=== PATIENT | female | born 2005 | race Caucasian/White ===

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

== ENCOUNTER 2025-04-02 14:20 | Emergency (ER) | payer OTHER, SELFPAY ==
--- OUTSIDE RECORDS SUMMARY | 2008-05-31 | XMS_ITS | Encounter Summary ---
Author Organization [facility] Healthcare Address [address] [place] [address] Care Team Providers Care Privacy Analyst Name Role Phone Unavailable Primary Care Provider Unavailabl e Encounter Details Date Type Department Care Team (Late st Contact Info) Description 05/31/2008 Hospital Encounter [facility] [place] [address] Social History Tobacco Use Types Packs/Day Years Used Date Smoking Tobacco: Never Passive Smoke Exposure: Never Smokeless Tobacco: Never AUDIT-C Answer Date Recorded Q1: How often do you have a drink containing alcohol? Never 12/10/2022 Q2: How many drinks containi ng alcohol do you have on a typical day when you are drinking? Patient does not drink Q3: How often do you have si x or more drinks on one occasion? Never 12/10/2022 Personal Safety Answer Date Recorded Have you ever been in or are you currently in a harmful physical or emotional relationship or is someone making you feel afraid or unsafe? Denies 02/09/2023 Comments No Sex and Gender Information Value Date Recorded Sex Assigned at Not on file Legal Sex Female 7:23 PM DIMMER BOARD OPERATOR Gender Identity Not on file Sexual Orientation Not on file COVID-19 Exposure Response Date Recorded In the last month, have you been in contact with someone who was confirmed or suspected to have Coronavirus / COVID-19? No / Unsure 07/11/2019 3:01 PM CDT documented as of this encounter Functional Status * Question Answer Date of Assessment Author MAP (mmHg) 83 02/09/2023 3:15 PM CDT Nena Phipps RN * BP Location Answer Date of Assessment Author Left arm 04/28/2023 4:12 PM DIMMER BOARD OPERATOR Jose, Dary, FINANCIAL COMPLIANCE MANAGER * Minh QD Scale Question Answer Date of Assessment Author Mobility 1 06/10/2022 9:00 AM Franny Collier RN Sensory Perception 0 06/10/2022 9:00 AM Franny Barrett RN Friction and Shear 1 06/10/2022 9:00 AM Franny Barrett RN Nutrition 0 06/10/2022 9:00 AM Franny Collier RN Tissue Perfusion and Oxygenation 0 06/10/2022 9:00 AM Franny Barrett RN Number of Medical Devices 0 06/10/2022 9:00 AM Franny Barrett RN Repositionability/Skin Protection 0 06/10/2022 9:00 AM Franny Barrett RN Braden QD Score 2 06/10/2022 9:00 AM Franny Carcamo RN * Question Answer Date of Assessment Author OT Functional Mobility Mom reports was S BA up to two weeks ago with wc for community mobility; does not do stairs at baseline. This date Britt was mod to max A for ambulation at bedside. 05/29/2022 1:32 PM Jennifer Dinero OT OT Self Care Completes bathroomin g with min task, mod balance 05/29/2022 1:32 PM Jennifer Dinero OT OT Cognition WFL, per pmh pt has a diagnosis of ASD and OCD 05/29/2022 1:32 PM Jennifer Dinero OT OT Communication WFL, very soft spoken 05/29/2022 1:32 PM Jennifer Dinero OT * B.M.A.T. - Bedside Mobility Assessment Tool for Nurses Question Answer Date of Assessment Author Is patient able to participate in the BMAT? Yes 06/10/2022 9:00 AM Franny Barrett RN Reason patient is unable to participate in BMAT Medically contraindicated 06/08/2022 8:26 AM Noreen Ceballos RN BMAT Level Level 3 - Yellow 06/10/2022 9:00 AM Franny Barrett RN Level 3 Equipment Use assistive device such as cane/walker 06/10/2022 9:00 AM Franny Barrett RN * Vladimir Urenaptrobert Fall Assessment Scale Question Answer Date of Assessment Author Age 1 06/10/2022 9:00 AM Franny Collier RN Gender 1 06/10/2022 9:00 AM Franny Collier RN Diagnosis 4 06/10/2022 9:00 AM Franny Collier RN Cognitive Impairment 1 06/10/2022 9:00 AM Franny Diez RN Environmental Factors 3 06/10/2022 9:00 AM Franny Barrett RN Response to Surgery/Sedation/Anesthesia 1 06/10/2022 9:00 AM Thuan Barrett RN Medication Usage 2 06/10/2022 9:00 AM Franny Yeh RN Humptrobert Urenapty Total Score (Score >= 12 places fall precaution order) 13 06/10/2022 9:00 AM Franny Barrett RN Auto Low/High - if selected proceed to interventions 4 06/06/2022 8:00 AM Maggy Paul RN * Question Answer Date of Assessment Author BP Method Automatic 06/10/2022 12:05 PM DIMMER BOARD OPERATOR Ti Roman * High Fall Risk Interventions (Humpty Dumpty Score 12 & Above) Question Answer Date of Assessment Author High Fall Risk Interventions Assist with ambulation;Educate patient/caregiver on fall prevention 06/10/2022 9:00 AM Franny Barrett RN * Question Answer Date of Assessment Author 1. Has the patient self-repo rted, presented with clinical signs of, or have a documented history of any of the following within the past 30 days? No 05/27/2022 9:37 PM Carolina Mata RN * Question Answer Date of Assessment Author Is the patient being treated today because it is known or suspected that they prepared, started, or tried to end their life? No 05/27/2022 9:37 PM Julianne Mata RN * Question Answer Date of Assessment Author 1. In the past month, have you wished you were or that you could go to sleep and not wake up? No 12/10/2022 7:40 PM Nadja Moreau, [place] 2. In the past month, have you actually had any thoughts of killing yourself? No 12/10/2022 7:40 PM Nadja Moreau, [place] 6. Have you ever done anything, started to do anything, or prepared to do anything to end your life? No 12/10/2022 7:40 PM July Moreau RN * Suicide Risk Level Answer Date of Assessment Author No risk level 12/10/2022 7:40 PM Fawad Moreau RN * Self-Injurious Risk Level Answer Date of Assessment Author No risk level 05/27/2022 9:37 PM DIMMER BOARD OPERATOR Rosie Salamanca, [place]DONADO * Alcohol Withdrawal BP Hierarchy Answer Date of Assessment Author 65 02/10/2023 11:18 AM CDT Charla Hernandez CMA * Pressure Injury Prevention Question Answer Date of Assessment Author Pressure Ulcer Prevention Interventions Keep skin clean and dry (Sensory Perception/Moistur e) 06/10/2022 9:00 AM DIMMER BOARD OPERATOR Franny Garcia, RN * AUDIT-C Score Answer Date of Assessment Author 0 12/10/2022 7:40 PM Fawad Moreau RN * Alcohol Use Question Answer Date of Assessment Author Q1: How often do you have a drink containing alcohol? Never 12/10/2022 7:40 PM Nadja Moreau RN Q2: How many drinks containing alcohol do you have on a typical day when you are drinking? Patient does not drink 12/10/2022 7:40 PM Nadja Moreau RN Q3: How often do you have six or more drinks on one occasion? Never 12/10/2022 7:40 PM Nadja Moreau RN * Integumentary Question Answer Date of Assessment Author Integumentary (WDL) X 05/15/2022 11:06 PM Maggy Veronica, [place] * Integumentary Question Answer Date of Assessment Author Skin Color Pale;[place] 06/07/2022 9:30 AM DIMMER BOARD OPERATOR Noreen Ibrahim RN Skin Condition/Temp Warm 06/07/2022 9:30 AM Noreen Cardenas, [place] Skin Integrity Other (Comment) 06/08/2022 8:56 AM Noreen Ceballos RN Skin Turgor Non-tenting 06/06/2022 8:30 AM DIMMER BOARD OPERATOR Maggy Molina RN Integumentary Additional Assessments Yes-Minh QD 06/06/2022 8:30 AM Maggy Paul RN Integumentary (WDL) WDL 02/09/2023 3:30 PM Nena Bermudez RN Skin Location generalized 06/08/2022 8:27 PM DIMMER BOARD OPERATOR Maggy Isidro RN * Minh Scale Question Answer Date of Assessment Author Minh Scale Used Minh QD 05/27/2022 9:37 PM DIMMER BOARD OPERATOR Carolina Salamanca RN * Question Answer Date of Assessment Author LLE Edema No pitting 06/08/2022 8:27 PM Maggy Paul RN Edema Left lower extremity 06/08/2022 8:27 PM C Maggy Meredith RN * Question Answer Date of Assessment Author Percent Meal Eaten (%) 100 06/10/2022 12:05 P M DIMMER BOARD OPERATOR Ti Jay Percent Snack Eaten (%) 0 06/09/2022 1:30 P M DIMMER BOARD OPERATOR Danita Gonzalez * BP Location Answer Date of Assessment Author Left arm 04/28/2023 4:12 PM DIMMER BOARD OPERATOR Dary Garcia LPN * Question Answer Date of Assessment Author Skin Care Skin cleanser 06/01/2022 9:00 PM DIMMER BOARD OPERATOR Azra Stanton RN Hygiene Gown Changed 06/06/2022 8:00 AM DIMMER BOARD OPERATOR Maggy Molina RN Oral Care Teeth brushed 06/08/2022 8:26 AM DIMMER BOARD OPERATOR Noreen Booth RN Hygiene Level of Assistance Moderate assist 06/10/2022 9:00 AM DIMMER BOARD OPERATOR Franny Garcia RN Toileting: Level of assistance Modified independent;Stand by 06/10/2022 9:00 AM DIMMER BOARD OPERATOR Franny Garcia RN Reason not bathed/showered Patient/family refused bath/shower 06/04/2022 9:13 PM DIMMER BOARD OPERATOR Maggy Crystal, [place] Perineal Care Dara Care 06/08/2022 8:26 AM DIMMER BOARD OPERATOR Noreen Booth RN Linens Complete linen change 06/06/2022 8:00 AM DIMMER BOARD OPERATOR Maggy Molina RN Bath Bathed/showered with chlorhexidine (CHG) 06/06/2022 8:00 AM DIMMER BOARD OPERATOR Maggy Molina, RN * PT Evaluation Needed Answer Date of Assessment Author 1 05/27/2022 9:37 PM DIMMER BOARD OPERATOR Rosie Salamanca, [place]O * Therapy Consults Question Answer Date of Assessment Author OT Evaluation Needed 1 05/16/2022 6:00 AM Lizeth Charles RN HEALTH INFORMATICS INSTRUCTOR Evaluation Needed 2 05/16/2022 6:00 AM Lizeth Orozco RN * Question Answer Date of Assessment Author Feeding Level of Assistance Able to feed self 06/10/2022 9:00 AM DIMMER BOARD OPERATOR Franny Garcia RN Appetite Good 06/09/2022 7:50 AM DIMMER BOARD OPERATOR Uriel Galdamez RN * Question Answer Date of Assessment Author BP Method Automatic 06/10/2022 12:05 PM DIMMER BOARD OPERATOR Ti Roman * Question Answer Date of Assessment Author Bed In Lowest Position Yes 06/10/2022 9:00 AM DIMMER BOARD OPERATOR Franny Garcia RN Bed Wheels Locked Yes 06/10/2022 9:00 AM DIMMER BOARD OPERATOR Franny Garcia RN documented as of this encounter Mental Status * Question Answer Entry Date Author Level of Consciousness Alert;Awake 3:30 PM Nena Damian RN Orientation Appropriate for yamil ent's baseline 02/09/2023 3:30 PM Nena Damian RN * Question Answer Entry Date Author Other Neuro Symptoms Other (Comment) 06/01/2022 8:00 A M DIMMER BOARD OPERATOR Rena Siddiqi RN * Question Answer Entry Date Author Neuro (WDL) WDL 02/09/2023 3:30 PM Nena Yang RN documented in this encounter Plan of Treatment Not on file documented as of this encounter Goals Goal Patient Goal Type Associated Problems Recent Progress Patient-Stated? Author BH-Adjustment and Coping Behavioral Health No Mohini Pandya, PhD Note: Increase adaptive coping skills CCM Chronic Pain Care Plan Chronic Care Management Worsening( 9:24 AM CDT) No Aylin Lobato, RN Note: Problem: Chronic Pain Goals: 1. Minimize further functional decline 2. Maximize quality of life 3. Control pain Strategies: - Activity/exercise program recommendation - Conservative stepwise pain medicine strategy with multi-disciplinary approach - Recommend healthy lifestyle strategies and compensatory methods as needed documented as of this encounter Procedures Procedure Name Priority Date/Time Associated Diagnosis Comments US TRANSFER OF OUTSIDE FILMS Routine 05/31/2008 12:00 AM DIMMER BOARD OPERATOR documented in this encounter Results * US Outside Reference (05/31/2008 12:00 AM DIMMER BOARD OPERATOR) Impressions RAD_PACS_[facility] - 04/08/2022 10:34 AM DIMMER BOARD OPERATOR These images are for Reference purposes only and have not been reviewed by [facility]iology. There will be no report generated by a [facility] Radiologist. Narrative RAD_PACS_[facility] - 04/08/2022 10:34 AM DIMMER BOARD OPERATOR EXAMINATION: Images For Reference Purposes Only us Selvin Paulson MD IMG US PROCEDURES Final Resu lt RAD_PACS_[facility] documented in this encounter Visit Diagnoses Not on filedocumented in this encounter Additional Health Concerns Infection Onset Date Last Indicated Resolved Time COVID: Suspected 12/03/2020 12/03/2020 12/03/2020 9:36 AM CDT COVID: Suspected 12/10/2022 12/10/2022 12/10/2022 8:09 PM CDT COVID19 12/10/2022 12/10/2022 12/20/2022 3:05 AM CDT COVID: Recovered Comment:Added based on recent COVID infection. 12/20/2022 12/22/2022 03/20/2023 3:[address] documented as of this encounter
--- OUTSIDE RECORDS SUMMARY | 2010-06-13 | XMS_ITS | Encounter Summary ---
Author Organization [facility] Healthcare Address [address] [place] [address] Care Team Providers Care Revival Clerk Name Role Phone Unavailable Primary Care Provider Unavailabl e Encounter Details Date Type Department Care Team (Late st Contact Info) Description 06/13/2010 Hospital Encounter [facility] [place] [address] Social History Tobacco Use Types Packs/Day Years [...] on file Legal Sex Female 7:23 PM TIGHT ROPE WALKER Gender Identity Not on file Sexual Orientation [...] Assessment Author Left arm 04/28/2023 4:12 PM TIGHT ROPE WALKER Jose, Dary, MVA REACTOR OPERATOR HEAD * Minh QD Scale Question Answer Date [...] Author BP Method Automatic 06/10/2022 12:05 PM TIGHT ROPE WALKER Ti Roman * High Fall Risk Interventions [...] Author No risk level 05/27/2022 9:37 PM TIGHT ROPE WALKER Rosie Salamanca, [place] * Alcohol Withdrawal BP Hierarchy Answer Date of Assessment Author 65 02/10/2023 11:18 AM CDT Charla Hernandez CMA * Pressure Injury Prevention Question Answer Date of Assessment Author Pressure Ulcer Prevention Interventions Keep skin clean and dry (Sensory Perception/Moistur e) 06/10/2022 9:00 AM TIGHT ROPE WALKER Franny Garcia, RN * AUDIT-C Score Answer [...] Answer Date of Assessment Author Skin Color Pale;[place] 06/07/2022 9:30 AM TIGHT ROPE WALKER Noreen Ibrahim RN Skin Condition/Temp Warm 06/07/2022 9:30 AM Noreen Cardenas, [place] Skin Integrity Other (Comment) 06/08/2022 8:56 AM Noreen Ceballos RN Skin Turgor Non-tenting 06/06/2022 8:30 AM TIGHT ROPE WALKER Maggy Molina RN Integumentary Additional Assessments Yes-Minh QD 06/06/2022 8:30 AM Maggy Paul RN Integumentary (WDL) WDL 02/09/2023 3:30 PM Nena Bermudez RN Skin Location generalized 06/08/2022 8:27 PM TIGHT ROPE WALKER Maggy Isidro RN * Minh Scale Question Answer Date of Assessment Author Minh Scale Used Minh QD 05/27/2022 9:37 PM TIGHT ROPE WALKER Carolina Salamanca RN * Question Answer Date of Assessment Author LLE Edema No pitting 06/08/2022 8:27 PM Maggy Paul RN Edema Left lower extremity 06/08/2022 8:27 PM C Maggy Meredith RN * Question Answer Date of Assessment Author Percent Meal Eaten (%) 100 06/10/2022 12:05 P M TIGHT ROPE WALKER Ti Jay Percent Snack Eaten (%) 0 06/09/2022 1:30 P M TIGHT ROPE WALKER Danita Gonzalez * BP Location Answer Date of Assessment Author Left arm 04/28/2023 4:12 PM TIGHT ROPE WALKER Dary Garcia LPN * Question Answer Date of Assessment Author Skin Care Skin cleanser 06/01/2022 9:00 PM TIGHT ROPE WALKER Azra Stanton RN Hygiene Gown Changed 06/06/2022 8:00 AM TIGHT ROPE WALKER Maggy Molina RN Oral Care Teeth brushed 06/08/2022 8:26 AM TIGHT ROPE WALKER Noreen Booth RN Hygiene Level of Assistance Moderate assist 06/10/2022 9:00 AM TIGHT ROPE WALKER Franny Garcia RN Toileting: Level of assistance Modified independent;Stand by 06/10/2022 9:00 AM TIGHT ROPE WALKER Franny Garcia RN Reason not bathed/showered Patient/family refused bath/shower 06/04/2022 9:13 PM TIGHT ROPE WALKER Maggy Crystal, [place] Perineal Care Dara Care 06/08/2022 8:26 AM TIGHT ROPE WALKER Noreen Booth RN Linens Complete linen change 06/06/2022 8:00 AM TIGHT ROPE WALKER Maggy Molina RN Bath Bathed/showered with chlorhexidine (CHG) 06/06/2022 8:00 AM TIGHT ROPE WALKER Maggy Molina, RN * PT Evaluation Needed Answer Date of Assessment Author 1 05/27/2022 9:37 PM TIGHT ROPE WALKER Rosie Salamanca, [place] * Therapy Consults Question Answer Date of Assessment Author OT Evaluation Needed 1 05/16/2022 6:00 AM Lizeth Charles RN LABELLING MACHINE OPERATOR Evaluation Needed 2 05/16/2022 6:00 AM Lizeth Orozco RN * Question Answer Date of Assessment Author Feeding Level of Assistance Able to feed self 06/10/2022 9:00 AM TIGHT ROPE WALKER Franny Garcia RN Appetite Good 06/09/2022 7:50 AM TIGHT ROPE WALKER Uriel Galdamez RN * Question Answer Date of Assessment Author BP Method Automatic 06/10/2022 12:05 PM TIGHT ROPE WALKER Ti Roman * Question Answer Date of Assessment Author Bed In Lowest Position Yes 06/10/2022 9:00 AM TIGHT ROPE WALKER Franny Garcia RN Bed Wheels Locked Yes 06/10/2022 9:00 AM TIGHT ROPE WALKER Franny Garcia RN documented as of this encounter Mental Status * Question Answer Entry Date Author Level of Consciousness Alert;Awake 3:30 PM Nena Damian RN Orientation Appropriate for yamil ent's baseline 02/09/2023 3:30 PM Nena Damian RN * Question Answer Entry Date Author Other Neuro Symptoms Other (Comment) 06/01/2022 8:00 A M TIGHT ROPE WALKER Rena Siddiqi RN * Question Answer Entry [...] Comments US TRANSFER OF OUTSIDE FILMS Routine 06/13/2010 12:00 AM TIGHT ROPE WALKER documented in this encounter Results * US Outside Reference (06/13/2010 12:00 AM TIGHT ROPE WALKER) Impressions RAD_PACS[facility] - 04/08/2022 8:45 AM TIGHT ROPE WALKER These images are for Reference purposes only and have not been reviewed by [facility] Radiology. There will be no report generated by a [facility] Radiologist. Narrative RAD_PACS_[facility] - 04/08/2022 8:45 AM TIGHT ROPE WALKER EXAMINATION: Images For Reference Purposes Only us [...]
--- OUTSIDE RECORDS SUMMARY | 2010-06-13 | XMS_ITS | Encounter Summary ---
Author Organization [facility] Healthcare Address [address] [place] [address] Care Team Providers Care Relay Tester Helper Name Role Phone Unavailable Primary Care Provider Unavailabl e Encounter Details Date Type Department Care Team (Late st Contact Info) Description 06/13/2010 Hospital Encounter [facility] [place] [address] Social History Tobacco Use Types Packs/Day Years [...] on file Legal Sex Female 7:23 PM RADIOLOGY RECEPTIONIST Gender Identity Not on file Sexual Orientation [...] Assessment Author Left arm 04/28/2023 4:12 PM RADIOLOGY RECEPTIONIST Jose, Dary, ENERGY CONSERVATION DIRECTOR * Minh QD Scale Question Answer Date [...] Author BP Method Automatic 06/10/2022 12:05 PM RADIOLOGY RECEPTIONIST Ti Roman * High Fall Risk Interventions [...] Author No risk level 05/27/2022 9:37 PM RADIOLOGY RECEPTIONIST Rosie Salamanca, [place] * Alcohol Withdrawal BP Hierarchy Answer Date of Assessment Author 65 02/10/2023 11:18 AM CDT Charla Hernandez CMA * Pressure Injury Prevention Question Answer Date of Assessment Author Pressure Ulcer Prevention Interventions Keep skin clean and dry (Sensory Perception/Moistur e) 06/10/2022 9:00 AM RADIOLOGY RECEPTIONIST Franny Garcia, RN * AUDIT-C Score Answer [...] Answer Date of Assessment Author Skin Color Pale;[place] 06/07/2022 9:30 AM RADIOLOGY RECEPTIONIST Noreen Ibrahim RN Skin Condition/Temp Warm 06/07/2022 9:30 AM Noreen Cardenas, [place] Skin Integrity Other (Comment) 06/08/2022 8:56 AM Noreen Ceballos RN Skin Turgor Non-tenting 06/06/2022 8:30 AM RADIOLOGY RECEPTIONIST Maggy Molina RN Integumentary Additional Assessments Yes-Minh QD 06/06/2022 8:30 AM Maggy Paul RN Integumentary (WDL) WDL 02/09/2023 3:30 PM Nena Bermudez RN Skin Location generalized 06/08/2022 8:27 PM RADIOLOGY RECEPTIONIST Maggy Isidro RN * Minh Scale Question Answer Date of Assessment Author Minh Scale Used Minh QD 05/27/2022 9:37 PM RADIOLOGY RECEPTIONIST Carolina Salamanca RN * Question Answer Date of Assessment Author LLE Edema No pitting 06/08/2022 8:27 PM Maggy Paul RN Edema Left lower extremity 06/08/2022 8:27 PM C Maggy Meredith RN * Question Answer Date of Assessment Author Percent Meal Eaten (%) 100 06/10/2022 12:05 P M RADIOLOGY RECEPTIONIST Ti Jay Percent Snack Eaten (%) 0 06/09/2022 1:30 P M RADIOLOGY RECEPTIONIST Danita Gonzalez * BP Location Answer Date of Assessment Author Left arm 04/28/2023 4:12 PM RADIOLOGY RECEPTIONIST Dary Garcia LPN * Question Answer Date of Assessment Author Skin Care Skin cleanser 06/01/2022 9:00 PM RADIOLOGY RECEPTIONIST Azra Stanton RN Hygiene Gown Changed 06/06/2022 8:00 AM RADIOLOGY RECEPTIONIST Maggy Molina RN Oral Care Teeth brushed 06/08/2022 8:26 AM RADIOLOGY RECEPTIONIST Noreen Booth RN Hygiene Level of Assistance Moderate assist 06/10/2022 9:00 AM RADIOLOGY RECEPTIONIST Franny Gracia RN Toileting: Level of assistance Modified independent;Stand by 06/10/2022 9:00 AM RADIOLOGY RECEPTIONIST Franny Garcia RN Reason not bathed/showered Patient/family refused bath/shower 06/04/2022 9:13 PM RADIOLOGY RECEPTIONIST Maggy Crystal, [place] Perineal Care Dara Care 06/08/2022 8:26 AM RADIOLOGY RECEPTIONIST Noreen Booth RN Linens Complete linen change 06/06/2022 8:00 AM RADIOLOGY RECEPTIONIST Maggy Molina RN Bath Bathed/showered with chlorhexidine (CHG) 06/06/2022 8:00 AM RADIOLOGY RECEPTIONIST Maggy Molina, RN * PT Evaluation Needed Answer Date of Assessment Author 1 05/27/2022 9:37 PM RADIOLOGY RECEPTIONIST Rosie Salamanca, [place] * Therapy Consults Question Answer Date of Assessment Author OT Evaluation Needed 1 05/16/2022 6:00 AM Lizeth Charles RN YARN HANDLER Evaluation Needed 2 05/16/2022 6:00 AM Lizeth Orozco RN * Question Answer Date of Assessment Author Feeding Level of Assistance Able to feed self 06/10/2022 9:00 AM RADIOLOGY RECEPTIONIST Franny Garcia RN Appetite Good 06/09/2022 7:50 AM RADIOLOGY RECEPTIONIST Uriel Galdamez RN * Question Answer Date of Assessment Author BP Method Automatic 06/10/2022 12:05 PM RADIOLOGY RECEPTIONIST Ti Roman * Question Answer Date of Assessment Author Bed In Lowest Position Yes 06/10/2022 9:00 AM RADIOLOGY RECEPTIONIST Franny Garcia RN Bed Wheels Locked Yes 06/10/2022 9:00 AM RADIOLOGY RECEPTIONIST Franny Garcia RN documented as of this encounter Mental Status * Question Answer Entry Date Author Level of Consciousness Alert;Awake 3:30 PM Nena Damian RN Orientation Appropriate for yamil ent's baseline 02/09/2023 3:30 PM Nena Damian RN * Question Answer Entry Date Author Other Neuro Symptoms Other (Comment) 06/01/2022 8:00 A M RADIOLOGY RECEPTIONIST Rena Siddiqi RN * Question Answer Entry [...] Procedure Name Priority Date/Time Associated Diagnosis Comments XR TRANSFER OF OUTSIDE FILMS Routine 06/13/2010 12:00 AM RADIOLOGY RECEPTIONIST documented in this encounter Results * XR Outside Reference (06/13/2010 12:00 AM RADIOLOGY RECEPTIONIST) Impressions RAD_PACS[facility] - 04/08/2022 8:42 AM RADIOLOGY RECEPTIONIST These images are for Reference purposes only and have not been reviewed by [facility] Radiology. There will be no report generated by a [facility] Radiologist. Narrative RAD_PACS_[facility] - 04/08/2022 8:42 AM RADIOLOGY RECEPTIONIST EXAMINATION: Images For Reference Purposes Only us Selvin Paulson MD IMG XR PROCEDURES Final Resu lt [facility]_PACS[facility] documented in [...]
--- OUTSIDE RECORDS SUMMARY | 2014-07-23 23:00 | XMS_ITS | Encounter Summary ---
Author Organization [facility] Healthcare Address [address] [place] [address] Care Team Providers Care Dining Service Inspector Name Role Phone Unavailable Primary Care Provider Unavailabl e Encounter Details Date Type Department Care Team (Late st Contact Info) Description 07/24/2014 Hospital Encounter [facility] [place] [address] Social History Tobacco Use Types Packs/Day Years [...] on file Legal Sex Female 7:23 PM CAREER RESOURCE TECHNICIAN Gender Identity Not on file Sexual Orientation [...] Assessment Author Left arm 04/28/2023 4:12 PM CAREER RESOURCE TECHNICIAN Jose, Dary, SWITCH CREW SUPERVISOR * Minh QD Scale Question Answer Date [...] Author BP Method Automatic 06/10/2022 12:05 PM CAREER RESOURCE TECHNICIAN Ti Roman * High Fall Risk Interventions [...] Author No risk level 05/27/2022 9:37 PM CAREER RESOURCE TECHNICIAN Rosie Salamanca, [place]ADO * Alcohol Withdrawal BP Hierarchy Answer Date of Assessment Author 65 02/10/2023 11:18 AM CDT Charla Hernandez CMA * Pressure Injury Prevention Question Answer Date of Assessment Author Pressure Ulcer Prevention Interventions Keep skin clean and dry (Sensory Perception/Moistur e) 06/10/2022 9:00 AM CAREER RESOURCE TECHNICIAN Franny Garcia, RN * AUDIT-C Score Answer [...] Answer Date of Assessment Author Skin Color Pale;[employer] 06/07/2022 9:30 AM CAREER RESOURCE TECHNICIAN Noreen Ibrahim RN Skin Condition/Temp Warm 06/07/2022 9:30 AM Noreen Cardenas, MAL[place]O Skin Integrity Other (Comment) 06/08/2022 8:56 AM Noreen Ceballos RN Skin Turgor Non-tenting 06/06/2022 8:30 AM CAREER RESOURCE TECHNICIAN Maggy Molina RN Integumentary Additional Assessments Yes-Minh QD 06/06/2022 8:30 AM Maggy Paul RN Integumentary (WDL) WDL 02/09/2023 3:30 PM Nena Bermudez RN Skin Location generalized 06/08/2022 8:27 PM CAREER RESOURCE TECHNICIAN Maggy Isidro RN * Minh Scale Question Answer Date of Assessment Author Minh Scale Used Minh QD 05/27/2022 9:37 PM CAREER RESOURCE TECHNICIAN Carolina Salamanca RN * Question Answer Date of Assessment Author LLE Edema No pitting 06/08/2022 8:27 PM Maggy Paul RN Edema Left lower extremity 06/08/2022 8:27 PM C Maggy Meredith RN * Question Answer Date of Assessment Author Percent Meal Eaten (%) 100 06/10/2022 12:05 P M CAREER RESOURCE TECHNICIAN Ti Jay Percent Snack Eaten (%) 0 06/09/2022 1:30 P M CAREER RESOURCE TECHNICIAN Danita Gonzalez * BP Location Answer Date of Assessment Author Left arm 04/28/2023 4:12 PM CAREER RESOURCE TECHNICIAN Dary Garcia LPN * Question Answer Date of Assessment Author Skin Care Skin cleanser 06/01/2022 9:00 PM CAREER RESOURCE TECHNICIAN Azra Stanton RN Hygiene Gown Changed 06/06/2022 8:00 AM CAREER RESOURCE TECHNICIAN Maggy Molina RN Oral Care Teeth brushed 06/08/2022 8:26 AM CAREER RESOURCE TECHNICIAN Noreen Booth RN Hygiene Level of Assistance Moderate assist 06/10/2022 9:00 AM CAREER RESOURCE TECHNICIAN Franny Garcia RN Toileting: Level of assistance Modified independent;Stand by 06/10/2022 9:00 AM CAREER RESOURCE TECHNICIAN Franny Garcia RN Reason not bathed/showered Patient/family refused bath/shower 06/04/2022 9:13 PM CAREER RESOURCE TECHNICIAN Maggy Crystal, [place] Perineal Care Dara Care 06/08/2022 8:26 AM CAREER RESOURCE TECHNICIAN Noreen Booth RN Linens Complete linen change 06/06/2022 8:00 AM CAREER RESOURCE TECHNICIAN Maggy Molina RN Bath Bathed/showered with chlorhexidine (CHG) 06/06/2022 8:00 AM CAREER RESOURCE TECHNICIAN Maggy Molina, RN * PT Evaluation Needed Answer Date of Assessment Author 1 05/27/2022 9:37 PM CAREER RESOURCE TECHNICIAN Rosie Salamanca, MALDON[place] * Therapy Consults Question Answer Date of Assessment Author OT Evaluation Needed 1 05/16/2022 6:00 AM Lizeth Charles RN SALES RECRUITMENT SPECIALIST Evaluation Needed 2 05/16/2022 6:00 AM Lizeth Orozco RN * Question Answer Date of Assessment Author Feeding Level of Assistance Able to feed self 06/10/2022 9:00 AM CAREER RESOURCE TECHNICIAN Franny Garcia RN Appetite Good 06/09/2022 7:50 AM CAREER RESOURCE TECHNICIAN Uriel Galdamez RN * Question Answer Date of Assessment Author BP Method Automatic 06/10/2022 12:05 PM CAREER RESOURCE TECHNICIAN Ti Roman * Question Answer Date of Assessment Author Bed In Lowest Position Yes 06/10/2022 9:00 AM CAREER RESOURCE TECHNICIAN Franny Garcia RN Bed Wheels Locked Yes 06/10/2022 9:00 AM CAREER RESOURCE TECHNICIAN Franny Garcia RN documented as of this encounter Mental Status * Question Answer Entry Date Author Level of Consciousness Alert;Awake 3:30 PM Nena Damian RN Orientation Appropriate for yamil ent's baseline 02/09/2023 3:30 PM Nena Damian RN * Question Answer Entry Date Author Other Neuro Symptoms Other (Comment) 06/01/2022 8:00 A M CAREER RESOURCE TECHNICIAN Rena Siddiqi RN * Question Answer Entry [...] Comments US TRANSFER OF OUTSIDE FILMS Routine 07/24/2014 12:00 AM CDT documented in this encounter Results * US Outside Reference (07/24/2014 12:00 AM CDT) Impressions [facility] - 04/08/2022 8:45 AM CAREER RESOURCE TECHNICIAN These images are for Reference purposes only and have not been reviewed by [facility] Radiology. There will be no report generated by a [facility] Radiologist. Narrative [facility] - 04/08/2022 8:45 AM CAREER RESOURCE TECHNICIAN EXAMINATION: Images For Reference Purposes Only us [...]
--- OUTSIDE RECORDS SUMMARY | 2018-04-28 | XMS_ITS | Encounter Summary ---
Author Organization [facility] Healthcare Address [address] [place] [address] Care Team Providers Care Lineman A Class Name Role Phone Alan Medel MD Primary Care Provider Encounter Details Date Type Department Care Team (Late st Contact Info) Description 04/28/2018 [place] [address] Social History Tobacco Use Types Packs/Day Years [...] on file Legal Sex Female 7:23 PM PHOTORADIO OPERATOR Gender Identity Not on file Sexual [...] MAP (mmHg) 83 02/09/2023 3:15 PM CDT Juliana sanchez, Nena Spear RN * BP Location Answer Date of Assessment Author Left arm 04/28/2023 4:12 PM PHOTORADIO OPERATOR Dary Garcia LPN * Minh QD Scale Question Answer Date [...] BA up to two weeks ago with for community mobility; does not do stairs [...] 9:00 AM Franny Barrett RN * Vladimir Murray Fall Assessment Scale Question Answer Date of Assessment Author Age 1 06/10/2022 9:00 AM Franny Collier RN Gender 1 06/10/2022 9:00 AM Franny Collier RN Diagnosis 4 06/10/2022 9:00 AM Franny Collier RN Cognitive Impairment 1 06/10/2022 9:[address] Franny Garcia RN Environmental Factors 3 06/10/2022 9:00 AM Franny Barrett RN Response to Surgery/Sedation/Anesthesia 1 06/10/2022 9:00 AM Thuan Barrett RN Medication Usage 2 06/10/2022 9:00 AM Franny Yeh RN Humpty Dumpty Total Score (Score >= 12 places fall precaution order) 13 06/10/2022 9:00 AM Franny Barrett RN Auto Low/High - if selected proceed to interventions 4 06/06/2022 8:00 AM Maggy Paul RN * Question Answer Date of Assessment Author BP Method Automatic 06/10/2022 12:05 PM Ti Arce * High Fall Risk Interventions (Humpty Dumpty [...] end their life? No 05/27/2022 9:37 PM Carolina Mata RN * Question Answer Date of Assessment Author 1. In the past month, have you wished you were or that you could go to sleep and not wake up? No 12/10/2022 7:40 PM Nadja Moreau RN 2. In the past month, have you [...] Author No risk level 05/27/2022 9:37 PM PHOTORADIO OPERATOR Rosie Salamanca, RN * Alcohol Withdrawal BP Hierarchy Answer Date of Assessment Author 65 02/10/2023 11:18 AM CDT Charla Hernandez CMA * Pressure Injury Prevention Question Answer Date of Assessment Author Pressure Ulcer Prevention Interventions Keep skin clean and dry (Sensory Perception/Moistur e) 06/10/2022 9:00 AM PHOTORADIO OPERATOR Franny Garcia, RN * AUDIT-C Score [...] Answer Date of Assessment Author Skin Color Pale;[place] 06/07/2022 9:30 AM Noreen Petit, [place] Skin Condition/Temp Warm 06/07/2022 9:30 AM Noreen Cardenas, [place] Skin Integrity Other (Comment) 06/08/2022 8:56 AM Noreen Ceballos, [place] Skin Turgor Non-tenting 06/06/2022 8:30 AM Maggy Paul RN Integumentary Additional Assessments Yes-Minh QD 06/06/2022 8:30 AM Maggy Paul RN Integumentary (WDL) WDL 02/09/2023 3:30 PM Nena Bermudez RN Skin Location generalized 06/08/2022 8:27 PM PHOTORADIO OPERATOR Maggy Isidro RN * Minh Scale Question Answer Date of Assessment Author Minh Scale Used Minh QD 05/27/2022 9:37 PM PHOTORADIO OPERATOR Carolina Salamanca, [place] * Question Answer Date of Assessment Author LLE Edema No pitting 06/08/2022 8:27 PM Maggy Paul RN Edema Left lower extremity 06/08/2022 8:[address] Maggy Molina RN * Question Answer Date of Assessment Author Percent Meal Eaten (%) 100 06/10/2022 12:05 P M PHOTORADIO OPERATOR Ti Jay Percent Snack Eaten (%) 0 06/09/2022 1:30 P M PHOTORADIO OPERATOR Danita Gonzalez * BP Location Answer Date of Assessment Author Left arm 04/28/2023 4:12 PM PHOTORADIO OPERATOR Dayr Garcia LPN * Question Answer Date of Assessment Author Skin Care Skin cleanser 06/01/2022 9:00 PM PHOTORADIO OPERATOR Azra Stanton, [place] Hygiene Gown Changed 06/06/2022 8:00 AM PHOTORADIO OPERATOR Maggy Molina RN Oral Care Teeth brushed 06/08/2022 8:26 AM PHOTORADIO OPERATOR Noreen Booth RN Hygiene Level of Assistance Moderate assist 06/10/2022 9:00 AM PHOTORADIO OPERATOR Franny Garcia RN Toileting: Level of assistance Modified independent;Stand by 06/10/2022 9:00 AM PHOTORADIO OPERATOR Franny Garcia RN Reason not bathed/showered Patient/family refused bath/shower 06/04/2022 9:13 PM PHOTORADIO OPERATOR Maggy Crystal RN Perineal Care Dara Care 06/08/2022 8:26 AM PHOTORADIO OPERATOR Noreen Booth RN Linens Complete linen change 06/06/2022 8:00 AM PHOTORADIO OPERATOR Maggy Molina RN Bath Bathed/showered with chlorhexidine (CHG) 06/06/2022 8:00 AM PHOTORADIO OPERATOR Maggy Molina, [place] * PT Evaluation Needed Answer Date of Assessment Author 1 05/27/2022 9:37 PM PHOTORADIO OPERATOR Rosie Salamanca, [place] * Therapy Consults Question Answer Date of Assessment Author OT Evaluation Needed 1 05/16/2022 6:00 AM Lizeth Charles RN CASING IN LINE SETTER Evaluation Needed 2 05/16/2022 6:00 AM Lizeth Orozco RN * Question Answer Date of Assessment Author Feeding Level of Assistance Able to feed self 06/10/2022 9:00 AM Franny aBrrett RN Appetite Good 06/09/2022 7:50 AM PHOTORADIO OPERATOR Uriel Galdamez RN * Question Answer Date of Assessment Author BP Method Automatic 06/10/2022 12:05 PM PHOTORADIO OPERATOR Ti Roman * Question Answer Date of Assessment Author Bed In Lowest Position Yes 06/10/2022 9:00 AM Franny Barrett RN Bed Wheels Locked Yes 06/10/2022 9:00 AM Franny Barrett RN documented as of this encounter Mental Status * Question Answer Entry Date Author Level of Consciousness Alert;Awake 3:30 PM Nena Damian RN Orientation Appropriate for yamil ent's baseline 02/09/2023 3:30 PM Nena Damian RN * Question Answer Entry Date Author Other Neuro Symptoms Other (Comment) 06/01/2022 8:00 A M Rena Quintana, [place] * Question Answer Entry Date Author Neuro (WDL) WDL 02/09/2023 3:30 PM CDT Gorli ne, Nena M., RN documented in this encounter Plan of Treatment Not on file documented as of this encounter Goals Goal Patient Goal Type Associated Problems Recent Progress Patient-Stated? Author BH-Adjustment and Coping Behavioral Health No Mohini Pandya, PhD Note: Increase adaptive coping skills CCM Chronic Pain Care Plan Chronic Care Management Worsening( 9:24 AM CDT) No Aylin Lobato RN Note: Problem: Chronic Pain Goals: 1. Minimize further functional decline 2. Maximize quality of life 3. Control pain Strategies: - Activity/exercise program recommendation - Conservative stepwise pain medicine strategy with multi-disciplinary approach - Recommend healthy lifestyle strategies and compensatory methods as needed documented as of this encounter Procedures Procedure Name Priority Date/Time Associated Diagnosis Comments XR TRANSFER OF OUTSIDE FILMS Routine 04/28/2018 12:00 AM PHOTORADIO OPERATOR documented in this encounter Results * XR Outside Reference (04/28/2018 12:00 AM PHOTORADIO OPERATOR) Impressions [facility] - 04/08/2022 8:44 AM PHOTORADIO OPERATOR These images are for Reference purposes only and have not been reviewed by [facility] Radiology. There will be no report generated by a [facility] Radiologist. Narrative RAD_PACS_[facility] - 04/08/2022 8:44 AM PHOTORADIO OPERATOR EXAMINATION: Images For Reference Purposes Only [...] C ST documented as of this encounter Care Teams Lineman A Class Relationship Specialty Start Date End Date Alan Medel MD PCP - General 07/13/16 10/25/18 documented as of this encounter
--- OUTSIDE RECORDS SUMMARY | 2018-07-06 23:00 | XMS_ITS | Encounter Summary ---
Author Organization [facility] Healthcare Address [address] [place] [address] Care Team Providers Care Verification Clerk Name Role Phone Alan Medel MD Primary Care Provider Reason for Visit * MRI/CAT/PET Scan (Routine) - Closed Specialty Diagnoses / Procedures Referred By Contac t Referred To Contact Procedures Neuro MR Outside Reference Selvin Paulson MD [address] [address] Phone: tel: fax: Referral ID Status Reason Start Date Expiration Date Visits Re quested Visits Authorized [id number] Closed 04/08/2022 05/08/2023 1 1 Encounter Details Date Type Department Care Team (Late st Contact Info) Description 07/07/2018 Hospital Encounter [facility] [place] [address] Social History Tobacco Use Types Packs/Day Years [...] on file Legal Sex Female 7:23 PM VETERINARY BACTERIOLOGIST Gender Identity Not on file Sexual Orientation [...] Assessment Author Left arm 04/28/2023 4:12 PM VETERINARY BACTERIOLOGIST Dary Garcia LPN * Minh QD Scale Question Answer Date of Assessment Author Mobility 1 06/10/2022 9:00 AM VETERINARY BACTERIOLOGIST Franny Avendano RN Sensory Perception 0 06/10/2022 9:00 AM VETERINARY BACTERIOLOGIST Franny Garcia RN Friction and Shear 1 06/10/2022 9:00 AM VETERINARY BACTERIOLOGIST Franny Garcia RN Nutrition 0 06/10/2022 9:00 AM Franny Collier RN Tissue Perfusion and Oxygenation 0 06/10/2022 9:00 AM Franny Barrett RN Number of Medical Devices 0 06/10/2022 9:00 AM Franny Barrett RN Repositionability/Skin Protection 0 06/10/2022 9:00 AM Franny Barrett RN Minh QD Score 2 06/10/2022 9:00 AM VETERINARY BACTERIOLOGIST Franny Kumar RN * Question Answer Date of Assessment [...] min task, mod balance 05/29/2022 1:32 PM VETERINARY BACTERIOLOGIST Jennifer Traore OT OT Cognition WFL, per pmh pt [...] 06/10/2022 9:00 AM Franny Barrett RN * Lanepty Dumpty Fall Assessment Scale Question Answer Date of [...] Author BP Method Automatic 06/10/2022 12:05 PM VETERINARY BACTERIOLOGIST Ti Roman * High Fall Risk Interventions [...] 30 days? No 05/27/2022 9:37 PM Carolina Mata, [place] * Question Answer Date of Assessment Author Is the patient being treated today because it is known or suspected that they prepared, started, or tried to end their life? No 05/27/2022 9:37 PM Julianne Mata, [place] * Question Answer Date of Assessment Author 1. In the past month, have you wished you were or that you could go to sleep and not wake up? No 12/10/2022 7:40 PM Nadja Moreau RN 2. In the past month, have you actually had any thoughts of killing yourself? No 12/10/2022 7:40 PM Nadja Moreau RN 6. Have you ever done anything, started to do anything, or prepared to do anything to end your life? No 12/10/2022 7:40 PM July Moreau RN * Suicide Risk Level Answer Date of Assessment Author No risk level 12/10/2022 7:40 PM Fawad Moreau RN * Self-Injurious Risk Level Answer Date of Assessment Author No risk level 05/27/2022 9:37 PM Rosie Mata, [place] * Alcohol Withdrawal BP Hierarchy Answer Date of Assessment Author 65 02/10/2023 11:18 AM Charla Moreira CMA * Pressure Injury Prevention Question Answer Date of Assessment Author Pressure Ulcer Prevention Interventions Keep skin clean and dry (Sensory Perception/Moistur e) 06/10/2022 9:00 AM Franny Barrett, [place] * AUDIT-C Score Answer Date of Assessment [...] Patient does not drink 12/10/2022 7:40 PM CDT Nadja Nichole RN Q3: How often do you have six or more drinks on one occasion? Never 12/10/2022 7:40 PM JOSAFATT Nadja Nichole RN * Integumentary Question Answer Date of Assessment Author Integumentary (WDL) X 05/15/2022 11:06 PM Maggy Veronica RN * Integumentary Question Answer Date of Assessment Author Skin Color Pale;[place] 06/07/2022 9:30 AM VETERINARY BACTERIOLOGIST Noreen Ibrahim RN Skin Condition/Temp Warm 06/07/2022 9:30 AM Noreen Cardenas RN Skin Integrity Other (Comment) 06/08/2022 8:56 AM Noreen Ceballos RN Skin Turgor Non-tenting 06/06/2022 8:30 AM VETERINARY BACTERIOLOGIST Maggy Molina RN Integumentary Additional Assessments Yes-Minh QD 06/06/2022 8:30 AM Maggy Paul RN Integumentary (WDL) WDL 02/09/2023 3:30 PM Nena Bermudez RN Skin Location generalized 06/08/2022 8:27 PM VETERINARY BACTERIOLOGIST Maggy Isidro RN * Minh Scale Question Answer Date of Assessment Author Minh Scale Used Minh QD 05/27/2022 9:37 PM VETERINARY BACTERIOLOGIST Carolina Salamanca, [place] * Question Answer Date of Assessment Author LLE Edema No pitting 06/08/2022 8:27 PM Maggy Paul RN Edema Left lower extremity 06/08/2022 8:27 PM C Maggy Meredith RN * Question Answer Date of Assessment Author Percent Meal Eaten (%) 100 06/10/2022 12:05 P M VETERINARY BACTERIOLOGIST Ti Jay Percent Snack Eaten (%) 0 06/09/2022 1:30 P M VETERINARY BACTERIOLOGIST Danita Gonzalez * BP Location Answer Date of Assessment Author Left arm 04/28/2023 4:12 PM VETERINARY BACTERIOLOGIST Dary Garcia LPN * Question Answer Date of Assessment Author Skin Care Skin cleanser 06/01/2022 9:00 PM VETERINARY BACTERIOLOGIST Azra Stanton RN Hygiene Gown Changed 06/06/2022 8:00 AM VETERINARY BACTERIOLOGIST Maggy Molina RN Oral Care Teeth brushed 06/08/2022 8:26 AM VETERINARY BACTERIOLOGIST Noreen Booth RN Hygiene Level of Assistance Moderate assist 06/10/2022 9:00 AM Franny Barrett RN Toileting: Level of assistance Modified independent;Stand by 06/10/2022 9:00 AM Franny Barrett RN Reason not bathed/showered Patient/family refused bath/shower 06/04/2022 9:13 PM Maggy Coombs RN Perineal Care Dara Care 06/08/2022 8:26 AM Noreen Ceballos RN Linens Complete linen change 06/06/2022 8:00 AM Maggy Paul RN Bath Bathed/showered with chlorhexidine (CHG) 06/06/2022 8:00 AM Maggy Paul RN * PT Evaluation Needed Answer Date of Assessment Author 1 05/27/2022 9:37 PM Rosie Mata RN * Therapy Consults Question Answer Date of Assessment Author OT Evaluation Needed 1 05/16/2022 6:00 AM Lizeth Charles RN TAR PROCESSING TECHNICIAN Evaluation Needed 2 05/16/2022 6:00 AM Lizeth Orozco RN * Question Answer Date of Assessment Author Feeding Level of Assistance Able to feed self 06/10/2022 9:00 AM Franny Barrett RN Appetite Good 06/09/2022 7:50 AM VETERINARY BACTERIOLOGIST Uriel Galdamez RN * Question Answer Date of Assessment Author BP Method Automatic 06/10/2022 12:05 PM VETERINARY BACTERIOLOGIST Ti Roman * Question Answer Date of Assessment Author Bed In Lowest Position Yes 06/10/2022 9:00 AM Franny Barrett RN Bed Wheels Locked Yes 06/10/2022 9:00 AM Franny Barrett RN documented as of this encounter Mental Status * Question Answer Entry Date Author Level of Consciousness Alert;Awake 10/23/202 3 3:30 PM CDT Nena Velasquez RN Orientation Appropriate for yamil ent's baseline 02/09/2023 3:30 PM CDT Nena Velasquez RN * Question Answer Entry Date Author Other Neuro Symptoms Other (Comment) 06/01/2022 8:00 A M VETERINARY BACTERIOLOGIST Rena Siddiqi RN * Question Answer Entry Date Author Neuro (WDL) WDL 02/09/2023 3:30 PM CDT Nena Phipps RN documented in this encounter Plan of [...] Procedure Name Priority Date/Time Associated Diagnosis Comments NEURO MR OUTSIDE REFERENCE Routine 07/07/2018 12:00 AM CDT documented in this encounter Results * Neuro MR Outside Reference (07/07/2018 12:00 AM CDT) Impressions RAD_PACS_[facility] - 04/08/2022 8:48 AM VETERINARY BACTERIOLOGIST These images are for Reference purposes only and have not been reviewed by [facility] Radiology. There will be no report generated by a [facility] Radiologist. Narrative RAD_PACS[facility] - 04/08/2022 8:48 AM VETERINARY BACTERIOLOGIST EXAMINATION: Images For Reference Purposes Only us Selvin Paulson MD IMG MRI PROCEDURES Final Res ult [facility] documented in this encounter Visit Diagnoses [...] documented as of this encounter Care Teams Verification Clerk Relationship Specialty Start Date End Date Alan Medel MD PCP - General 07/13/16 10/25/18 documented as of this encounter
--- OUTSIDE RECORDS SUMMARY | 2018-08-08 23:00 | XMS_ITS | Encounter Summary ---
Author Organization [facility] Healthcare Address [address] [place] [address] Care Team Providers Care Transmission Systems Operator Name Role Phone Alan Medel MD Primary Care Provider Encounter Details Date Type Department Care Team (Late st Contact Info) Description 08/09/2018 [place] [address] Social History Tobacco Use Types Packs/Day Years [...] on file Legal Sex Female 7:23 PM RETURN AGENT AIRPORT Gender Identity Not on file Sexual Orientation [...] Assessment Author Left arm 04/28/2023 4:12 PM RETURN AGENT AIRPORT Dary Garcia LPN * Minh QD Scale [...] Author No risk level 05/27/2022 9:37 PM RETURN AGENT AIRPORT Rosie Salamanca, RN * Alcohol Withdrawal BP Hierarchy Answer Date of Assessment Author 65 02/10/2023 11:18 AM CDT Charla Hernandez CMA * Pressure Injury Prevention Question Answer Date of Assessment Author Pressure Ulcer Prevention Interventions Keep skin clean and dry (Sensory Perception/Moistur e) 06/10/2022 9:00 AM RETURN AGENT AIRPORT Franny Garcia, RN * AUDIT-C Score Answer [...] Answer Date of Assessment Author Skin Color Pale;[place] 06/07/2022 9:30 AM Noreen Petit, [place] Skin Condition/Temp Warm 06/07/2022 9:30 AM Noreen Cardenas, [place] Skin Integrity Other (Comment) 06/08/2022 8:56 AM Noreen Ceballos, [place] Skin Turgor Non-tenting 06/06/2022 8:30 AM Maggy Paul RN Integumentary Additional Assessments Yes-Minh QD 06/06/2022 8:30 AM Maggy Paul RN Integumentary (WDL) WDL 02/09/2023 3:30 PM Nena Bermudez RN Skin Location generalized 06/08/2022 8:27 PM RETURN AGENT AIRPORT Maggy Isidro RN * Minh Scale Question Answer Date of Assessment Author Minh Scale Used Minh QD 05/27/2022 9:37 PM RETURN AGENT AIRPORT Carolina Salamanca, [place] * Question Answer Date of Assessment Author LLE Edema No pitting 06/08/2022 8:27 PM Maggy Paul RN Edema Left lower extremity 06/08/2022 8:[address] Maggy Molina RN * Question Answer Date of Assessment Author Percent Meal Eaten (%) 100 06/10/2022 12:05 P M RETURN AGENT AIRPORT Ti Jay Percent Snack Eaten (%) 0 06/09/2022 1:30 P M RETURN AGENT AIRPORT Danita Gonzalez * BP Location Answer Date of Assessment Author Left arm 04/28/2023 4:12 PM RETURN AGENT AIRPORT Dary Garcia LPN * Question Answer Date of Assessment Author Skin Care Skin cleanser 06/01/2022 9:00 PM RETURN AGENT AIRPORT Azra Stanton, [place] Hygiene Gown Changed 06/06/2022 8:00 AM RETURN AGENT AIRPORT Maggy Molina RN Oral Care Teeth brushed 06/08/2022 8:26 AM RETURN AGENT AIRPORT Noreen Booth RN Hygiene Level of Assistance Moderate assist 06/10/2022 9:00 AM RETURN AGENT AIRPORT Franny Garcia RN Toileting: Level of assistance Modified independent;Stand by 06/10/2022 9:00 AM RETURN AGENT AIRPORT Franny Garcia RN Reason not bathed/showered Patient/family refused bath/shower 06/04/2022 9:13 PM RETURN AGENT AIRPORT Maggy Crystal RN Perineal Care Dara Care 06/08/2022 8:26 AM RETURN AGENT AIRPORT Noreen Booth RN Linens Complete linen change 06/06/2022 8:00 AM RETURN AGENT AIRPORT Maggy Molina RN Bath Bathed/showered with chlorhexidine (CHG) 06/06/2022 8:00 AM RETURN AGENT AIRPORT Maggy Molina, [place] * PT Evaluation Needed Answer Date of Assessment Author 1 05/27/2022 9:37 PM RETURN AGENT AIRPORT Rosie Salamanca, [place] * Therapy Consults Question Answer Date of Assessment Author OT Evaluation Needed 1 05/16/2022 6:00 AM Lizeth Charles RN BUSINESS PLANNING MANAGER Evaluation Needed 2 05/16/2022 6:00 AM Lizeth Orozco RN * Question Answer Date of Assessment Author Feeding Level of Assistance Able to feed self 06/10/2022 9:00 AM Franny Barrett RN Appetite Good 06/09/2022 7:50 AM RETURN AGENT AIRPORT Uriel Galdamez RN * Question Answer Date of Assessment Author BP Method Automatic 06/10/2022 12:05 PM RETURN AGENT AIRPORT Ti Roman * Question Answer Date of [...] Comments XR TRANSFER OF OUTSIDE FILMS Routine 08/09/2018 12:00 AM CDT documented in this encounter Results * XR Outside Reference (08/09/2018 12:00 AM CDT) Impressions RAD_[facility]ACS_[facility] - 04/08/2022 8:45 AM RETURN AGENT AIRPORT These images are for Reference purposes only and have not been reviewed by [facility] Radiology. There will be no report generated by a [facility] Radiologist. Narrative [facility]_PACS_[facility] - 04/08/2022 8:45 AM RETURN AGENT AIRPORT EXAMINATION: Images For Reference Purposes Only us [...] documented as of this encounter Care Teams Transmission Systems Operator Relationship Specialty Start Date End Date Alan Medel MD PCP - General 07/13/16 10/25/18 documented as of this encounter
--- OUTSIDE RECORDS SUMMARY | 2018-08-11 23:00 | XMS_ITS | Encounter Summary ---
Author Organization [facility] Healthcare Address [address] [place] [address] Care Team Providers Care Anesthesiology Technologist Name Role Phone Alan Medel MD Primary Care Provider Reason for Visit * MRI/CAT/PET Scan (Routine) - Closed Specialty Diagnoses / Procedures Referred By Contac t Referred To Contact Procedures Neuro MR Outside Reference Selvin Paulson MD [address] [address] Phone: tel: fax: Referral ID Status Reason Start Date Expiration Date Visits Re quested Visits Authorized [id number] Closed 04/08/2022 05/08/2023 1 1 Encounter Details Date Type Department Care Team (Late st Contact Info) Description 08/12/2018 Hospital Encounter [facility] [place] [address] Social History Tobacco Use Types Packs/Day Years [...] on file Legal Sex Female 7:23 PM FLOOR SANDING MACHINE OPERATOR Gender Identity Not on file Sexual [...] Assessment Author Left arm 04/28/2023 4:12 PM FLOOR SANDING MACHINE OPERATOR Dary Garcia LPN * Minh QD Scale Question Answer Date of Assessment Author Mobility 1 06/10/2022 9:00 AM FLOOR SANDING MACHINE OPERATOR Franny Avendano RN Sensory Perception 0 06/10/2022 9:00 AM FLOOR SANDING MACHINE OPERATOR Franny Garcia RN Friction and Shear 1 06/10/2022 9:00 AM FLOOR SANDING MACHINE OPERATOR Franny Garcia RN Nutrition 0 06/10/2022 9:00 AM Franny Collier RN Tissue Perfusion and Oxygenation 0 06/10/2022 9:00 AM Franny Barrett RN Number of Medical Devices 0 06/10/2022 9:00 AM Franny Barrett RN Repositionability/Skin Protection 0 06/10/2022 9:00 AM Franny Barrett RN Minh QD Score 2 06/10/2022 9:00 AM FLOOR SANDING MACHINE OPERATOR Franny Kumar RN * Question Answer Date [...] min task, mod balance 05/29/2022 1:32 PM FLOOR SANDING MACHINE OPERATOR Jennifer Traore OT OT Cognition WFL, per [...] Author BP Method Automatic 06/10/2022 12:05 PM FLOOR SANDING MACHINE OPERATOR Ti Roman * High Fall Risk [...] Answer Date of Assessment Author Skin Color Pale;[place] 06/07/2022 9:30 AM FLOOR SANDING MACHINE OPERATOR Noreen Ibrahim RN Skin Condition/Temp Warm 06/07/2022 9:30 AM Noreen Cardenas RN Skin Integrity Other (Comment) 06/08/2022 8:56 AM Noreen Ceballos RN Skin Turgor Non-tenting 06/06/2022 8:30 AM FLOOR SANDING MACHINE OPERATOR Maggy Molina RN Integumentary Additional Assessments Yes-Minh QD 06/06/2022 8:30 AM Maggy Paul RN Integumentary (WDL) WDL 02/09/2023 3:30 PM Nena Bermudez RN Skin Location generalized 06/08/2022 8:27 PM FLOOR SANDING MACHINE OPERATOR Maggy Isidro RN * Minh Scale Question Answer Date of Assessment Author Minh Scale Used Minh QD 05/27/2022 9:37 PM FLOOR SANDING MACHINE OPERATOR Carolina Salamanca, [place] * Question Answer Date of Assessment Author LLE Edema No pitting 06/08/2022 8:27 PM Maggy Paul RN Edema Left lower extremity 06/08/2022 8:27 PM C Maggy Meredith RN * Question Answer Date of Assessment Author Percent Meal Eaten (%) 100 06/10/2022 12:05 P M FLOOR SANDING MACHINE OPERATOR Ti Jay Percent Snack Eaten (%) 0 06/09/2022 1:30 P M FLOOR SANDING MACHINE OPERATOR Danita Gonzalez * BP Location Answer Date of Assessment Author Left arm 04/28/2023 4:12 PM FLOOR SANDING MACHINE OPERATOR Dary Garcia LPN * Question Answer Date of Assessment Author Skin Care Skin cleanser 06/01/2022 9:00 PM FLOOR SANDING MACHINE OPERATOR Azra Stanton RN Hygiene Gown Changed 06/06/2022 8:00 AM FLOOR SANDING MACHINE OPERATOR Maggy Molina RN Oral Care Teeth brushed 06/08/2022 8:26 AM FLOOR SANDING MACHINE OPERATOR Noreen Booth RN Hygiene Level of [...] 1 05/16/2022 6:00 AM Lizeth Charles RN MANAGER SUPPLY CHAIN PLANNING Evaluation Needed 2 05/16/2022 6:00 AM Lizeth Orozco RN * Question Answer Date of Assessment Author Feeding Level of Assistance Able to feed self 06/10/2022 9:00 AM Franny Barrett RN Appetite Good 06/09/2022 7:50 AM FLOOR SANDING MACHINE OPERATOR Uriel Galdamez RN * Question Answer Date of Assessment Author BP Method Automatic 06/10/2022 12:05 PM FLOOR SANDING MACHINE OPERATOR Ti Roman * Question Answer Date [...] Symptoms Other (Comment) 06/01/2022 8:00 A M FLOOR SANDING MACHINE OPERATOR Rena Siddiqi RN * Question Answer [...] Diagnosis Comments NEURO MR OUTSIDE REFERENCE Routine 08/12/2018 12:00 AM CDT documented in this encounter Results * Neuro MR Outside Reference (08/12/2018 12:00 AM CDT) Impressions RAD_PACS[facility] - 04/08/2022 8:44 AM FLOOR SANDING MACHINE OPERATOR These images are for Reference purposes only and have not been reviewed by [facility] Radiology. There will be no report generated by a [facility] Radiologist. Narrative RAD_PACS[facility] - 04/08/2022 8:44 AM FLOOR SANDING MACHINE OPERATOR EXAMINATION: Images For Reference Purposes Only [...] documented as of this encounter Care Teams Anesthesiology Technologist Relationship Specialty Start Date End Date Alan Medel MD PCP - General 07/13/16 10/25/18 documented as of this encounter
--- OUTSIDE RECORDS SUMMARY | 2018-08-26 23:00 | XMS_ITS | Encounter Summary ---
Author Organization [facility] Healthcare Address [address] [place] [address] Care Team Providers Care Cable Repairer Name Role Phone Alan Medel MD Primary Care Provider Reason for Visit * MRI/CAT/PET Scan (Routine) - Closed Specialty Diagnoses / Procedures Referred By Contac t Referred To Contact Procedures Neuro MR Outside Reference Selvin Paulson MD [address] [address] Phone: tel: fax: Referral ID Status Reason Start Date Expiration Date Visits Re quested Visits Authorized [id number] Closed 04/08/2022 05/08/2023 1 1 Encounter Details Date Type Department Care Team (Late st Contact Info) Description 08/27/[address] [facility] [place] [address] Social History Tobacco Use Types Packs/Day Years [...] on file Legal Sex Female 7:23 PM VICE CHANCELLOR Gender Identity Not on file Sexual Orientation [...] Assessment Author Left arm 04/28/2023 4:12 PM VICE CHANCELLOR Dary Garcia LPN * Minh QD Scale Question Answer Date of Assessment Author Mobility 1 06/10/2022 9:00 AM VICE CHANCELLOR Franny Avendano RN Sensory Perception 0 06/10/2022 9:00 AM VICE CHANCELLOR Franny Garcia RN Friction and Shear 1 06/10/2022 9:00 AM VICE CHANCELLOR Franny Garcia RN Nutrition 0 06/10/2022 9:00 AM Franny Collier RN Tissue Perfusion and Oxygenation 0 06/10/2022 9:00 AM Franny Barrett RN Number of Medical Devices 0 06/10/2022 9:00 AM Franny Barrett RN Repositionability/Skin Protection 0 06/10/2022 9:00 AM Franny Barrett RN Minh QD Score 2 06/10/2022 9:00 AM VICE CHANCELLOR Franny Kumar RN * Question Answer Date [...] min task, mod balance 05/29/2022 1:32 PM VICE CHANCELLOR Jennifer Traore OT OT Cognition WFL, per [...] Author BP Method Automatic 06/10/2022 12:05 PM VICE CHANCELLOR Ti Roman * High Fall Risk Interventions [...] Perception/Moistur e) 06/10/2022 9:00 AM Franny Barrett, [place] * AUDIT-C Score Answer Date of Assessment [...] Answer Date of Assessment Author Skin Color Pale;[place] 06/07/2022 9:30 AM VICE CHANCELLOR Noreen Ibrahim RN Skin Condition/Temp Warm 06/07/2022 9:30 AM Noreen Cardenas RN Skin Integrity Other (Comment) 06/08/2022 8:56 AM Noreen Ceballos RN Skin Turgor Non-tenting 06/06/2022 8:30 AM VICE CHANCELLOR Maggy Molina RN Integumentary Additional Assessments Yes-Minh QD 06/06/2022 8:30 AM Maggy Paul RN Integumentary (WDL) WDL 02/09/2023 3:30 PM Nena Bermudez RN Skin Location generalized 06/08/2022 8:27 PM VICE CHANCELLOR Maggy Isidro RN * Minh Scale Question Answer Date of Assessment Author Minh Scale Used Minh QD 05/27/2022 9:37 PM VICE CHANCELLOR Carolina Salamanca, [place] * Question Answer Date of Assessment Author LLE Edema No pitting 06/08/2022 8:27 PM Maggy Paul RN Edema Left lower extremity 06/08/2022 8:27 PM C Maggy Meredith RN * Question Answer Date of Assessment Author Percent Meal Eaten (%) 100 06/10/2022 12:05 P M VICE CHANCELLOR Ti Jay Percent Snack Eaten (%) 0 06/09/2022 1:30 P M VICE CHANCELLOR Danita Gonzalez * BP Location Answer Date of Assessment Author Left arm 04/28/2023 4:12 PM VICE CHANCELLOR Dary Garcia LPN * Question Answer Date of Assessment Author Skin Care Skin cleanser 06/01/2022 9:00 PM VICE CHANCELLOR Azra Stanton RN Hygiene Gown Changed 06/06/2022 8:00 AM VICE CHANCELLOR Maggy Molina RN Oral Care Teeth brushed 06/08/2022 8:26 AM VICE CHANCELLOR Noreen Booth RN Hygiene Level of Assistance [...] 1 05/16/2022 6:00 AM Lizeth Charles RN PROMOTIONAL DEMONSTRATOR Evaluation Needed 2 05/16/2022 6:00 AM Lizeth Orozco RN * Question Answer Date of Assessment Author Feeding Level of Assistance Able to feed self 06/10/2022 9:00 AM Franny Barrett RN Appetite Good 06/09/2022 7:50 AM VICE CHANCELLOR Uriel Galdamez RN * Question Answer Date of Assessment Author BP Method Automatic 06/10/2022 12:05 PM VICE CHANCELLOR Ti Roman * Question Answer Date of [...] Symptoms Other (Comment) 06/01/2022 8:00 A M VICE CHANCELLOR Rena Siddiqi RN * Question Answer Entry [...] Diagnosis Comments NEURO MR OUTSIDE REFERENCE Routine 08/27/2018 12:00 AM CDT documented in this encounter Results * Neuro MR Outside Reference (08/27/2018 12:00 AM CDT) Impressions [facility] - 04/08/2022 8:43 AM VICE CHANCELLOR These images are for Reference purposes only and have not been reviewed by [facility] Radiology. There will be no report generated by a [facility] Radiologist. Narrative RAD_[facility] - 04/08/2022 8:43 AM VICE CHANCELLOR EXAMINATION: Images For Reference Purposes Only us [...] documented as of this encounter Care Teams Cable Repairer Relationship Specialty Start Date End Date Alan Medel MD PCP - General 07/13/16 10/25/18 documented as of this encounter
--- OUTSIDE RECORDS SUMMARY | 2018-09-26 23:00 | XMS_ITS | Encounter Summary ---
Author Organization [facility] Healthcare Address [address] [place] [address] Care Team Providers Care Bleach Boiler Puller Name Role Phone Alan Medel MD Primary Care Provider Reason for Visit * MRI/CAT/PET Scan (Routine) - Closed Specialty Diagnoses / Procedures Referred By Contac t Referred To Contact Procedures Neuro MR Outside Reference Selvin Paulson MD [address] [address] Phone: tel: fax: Referral ID Status Reason Start Date Expiration Date Visits Re quested Visits Authorized [id number] Closed 04/08/2022 05/08/2023 1 1 Encounter Details Date Type Department Care Team (Late st Contact Info) Description 09/27/[address] [facility] [place] [address] Social History Tobacco Use Types Packs/Day Years [...] on file Legal Sex Female 7:23 PM SUPERVISOR ELECTRONIC TESTING Gender Identity Not on file Sexual Orientation [...] Assessment Author Left arm 04/28/2023 4:12 PM SUPERVISOR ELECTRONIC TESTING Dary Garcia LPN * Minh QD Scale Question Answer Date of Assessment Author Mobility 1 06/10/2022 9:00 AM SUPERVISOR ELECTRONIC TESTING Franny Avendano RN Sensory Perception 0 06/10/2022 [...] Minh QD Score 2 06/10/2022 9:00 AM SUPERVISOR ELECTRONIC TESTING Franny Kumar RN * Question Answer Date [...] min task, mod balance 05/29/2022 1:32 PM SUPERVISOR ELECTRONIC TESTING Jennifer Traore OT OT Cognition WFL, per [...] 9:00 AM Franny Barrett RN * Lanepty Ayannapty Fall Assessment Scale Question Answer Date of [...] Answer Date of Assessment Author Skin Color Pale;[place] 06/07/2022 9:30 AM SUPERVISOR ELECTRONIC TESTING Noreen Ibrahim RN Skin Condition/Temp Warm 06/07/2022 9:30 AM Noreen Cardenas RN Skin Integrity Other (Comment) 06/08/2022 8:56 AM Noreen Ceballos RN Skin Turgor Non-tenting 06/06/2022 8:30 AM SUPERVISOR ELECTRONIC TESTING Maggy Molina RN Integumentary Additional Assessments Yes-Minh QD 06/06/2022 8:30 AM Maggy Paul RN Integumentary (WDL) WDL 02/09/2023 3:30 PM Nena Bermudez RN Skin Location generalized 06/08/2022 8:27 PM SUPERVISOR ELECTRONIC TESTING Maggy Isidro RN * Minh Scale Question Answer Date of Assessment Author Minh Scale Used Minh QD 05/27/2022 9:37 PM SUPERVISOR ELECTRONIC TESTING Carolina Salamanca, [place] * Question Answer Date of Assessment Author LLE Edema No pitting 06/08/2022 8:27 PM Maggy Paul RN Edema Left lower extremity 06/08/2022 8:27 PM C Maggy Meredith RN * Question Answer Date of Assessment Author Percent Meal Eaten (%) 100 06/10/2022 12:05 P M SUPERVISOR ELECTRONIC TESTING Ti Jay Percent Snack Eaten (%) 0 06/09/2022 1:30 P M SUPERVISOR ELECTRONIC TESTING Danita Gonzalez * BP Location Answer Date of Assessment Author Left arm 04/28/2023 4:12 PM SUPERVISOR ELECTRONIC TESTING Dary Garcia LPN * Question Answer Date of Assessment Author Skin Care Skin cleanser 06/01/2022 9:00 PM SUPERVISOR ELECTRONIC TESTING Azra Stanton RN Hygiene Gown Changed 06/06/2022 8:00 AM SUPERVISOR ELECTRONIC TESTING Maggy Molina RN Oral Care Teeth brushed 06/08/2022 8:26 AM SUPERVISOR ELECTRONIC TESTING Noreen Booth RN Hygiene Level of Assistance [...] 1 05/16/2022 6:00 AM Lizeth Charles RN BALANCE WHEEL ARM BURNISHER Evaluation Needed 2 05/16/2022 6:00 AM Lizeth Orozco RN * Question Answer Date of Assessment Author Feeding Level of Assistance Able to feed self 06/10/2022 9:00 AM Franny Barrett RN Appetite Good 06/09/2022 7:50 AM SUPERVISOR ELECTRONIC TESTING Uriel Galdamez RN * Question Answer Date of Assessment Author BP Method Automatic 06/10/2022 12:05 PM SUPERVISOR ELECTRONIC TESTING Ti Roman * Question Answer Date of Assessment Author Bed In Lowest Position Yes 06/10/2022 9:00 AM Franny Barrett RN Bed Wheels Locked Yes 06/10/2022 9:00 AM Franny Barrett RN documented as of this encounter Mental Status * Question Answer Entry Date Author Level of Consciousness Alert;Awake 3:30 PM CDT Nena Velasquez RN Orientation Appropriate for yamil ent's baseline 02/09/2023 3:30 PM CDT Nena Velasquez RN * Question Answer Entry Date Author Other Neuro Symptoms Other (Comment) 06/01/2022 8:00 A M SUPERVISOR ELECTRONIC TESTING Rena Siddiqi, [place] * Question Answer Entry Date Author [...] Diagnosis Comments NEURO MR OUTSIDE REFERENCE Routine 09/27/2018 12:00 AM CDT documented in this encounter Results * Neuro MR Outside Reference (09/27/2018 12:00 AM CDT) Impressions [facility] - 04/08/2022 8:32 AM SUPERVISOR ELECTRONIC TESTING These images are for Reference purposes only and have not been reviewed by [facility] Radiology. There will be no report generated by a [facility] Radiologist. Narrative RAD_PACS_[facility] - 04/08/2022 8:32 AM SUPERVISOR ELECTRONIC TESTING EXAMINATION: Images For Reference Purposes Only us [...] documented as of this encounter Care Teams Bleach Boiler Puller Relationship Specialty Start Date End Date Alan Medel MD PCP - General 07/13/16 10/25/18 documented as of this encounter
--- OUTSIDE RECORDS SUMMARY | 2018-09-29 23:00 | XMS_ITS | Encounter Summary ---
Author Organization [facility] Healthcare Address [address] [place] [address] Care Team Providers Care Commercial Fishing Vessel Operator Name Role Phone Alan Medel MD Primary Care Provider Encounter Details Date Type Department Care Team (Late st Contact Info) Description 09/30/2018 [place] [address] Social History Tobacco Use Types Packs/Day Years [...] on file Legal Sex Female 7:23 PM LIQUOR BRIDGE OPERATOR HELPER Gender Identity Not on file Sexual Orientation [...] Assessment Author Left arm 04/28/2023 4:12 PM LIQUOR BRIDGE OPERATOR HELPER Dary Garcia LPN * Minh QD Scale [...] Author No risk level 05/27/2022 9:37 PM LIQUOR BRIDGE OPERATOR HELPER Rosie Salamanca, RN * Alcohol Withdrawal BP Hierarchy Answer Date of Assessment Author 65 02/10/2023 11:18 AM CDT Charla Hernandez CMA * Pressure Injury Prevention Question Answer Date of Assessment Author Pressure Ulcer Prevention Interventions Keep skin clean and dry (Sensory Perception/Moistur e) 06/10/2022 9:00 AM LIQUOR BRIDGE OPERATOR HELPER Franny Garcia, RN * AUDIT-C Score Answer [...] Answer Date of Assessment Author Skin Color Pale;[place] 06/07/2022 9:30 AM Noreen Petit, [place] Skin Condition/Temp Warm 06/07/2022 9:30 AM Noreen Cardenas, [place] Skin Integrity Other (Comment) 06/08/2022 8:56 AM Noreen Ceballos, [place] Skin Turgor Non-tenting 06/06/2022 8:30 AM Maggy Paul RN Integumentary Additional Assessments Yes-Minh QD 06/06/2022 8:30 AM Maggy Paul RN Integumentary (WDL) WDL 02/09/2023 3:30 PM Nena Bermudez RN Skin Location generalized 06/08/2022 8:27 PM LIQUOR BRIDGE OPERATOR HELPER Maggy Isidro RN * Minh Scale Question Answer Date of Assessment Author Minh Scale Used Minh QD 05/27/2022 9:37 PM LIQUOR BRIDGE OPERATOR HELPER Carolina Salamanca, [place] * Question Answer Date of Assessment Author LLE Edema No pitting 06/08/2022 8:27 PM Maggy Paul RN Edema Left lower extremity 06/08/2022 8:[address] Maggy Moilna RN * Question Answer Date of Assessment Author Percent Meal Eaten (%) 100 06/10/2022 12:05 P M LIQUOR BRIDGE OPERATOR HELPER Ti Jay Percent Snack Eaten (%) 0 06/09/2022 1:30 P M LIQUOR BRIDGE OPERATOR HELPER Danita Gonzalez * BP Location Answer Date of Assessment Author Left arm 04/28/2023 4:12 PM LIQUOR BRIDGE OPERATOR HELPER Dary Garcia LPN * Question Answer Date of Assessment Author Skin Care Skin cleanser 06/01/2022 9:00 PM LIQUOR BRIDGE OPERATOR HELPER Azra Stanton, [place] Hygiene Gown Changed 06/06/2022 8:00 AM LIQUOR BRIDGE OPERATOR HELPER Maggy Molina RN Oral Care Teeth brushed 06/08/2022 8:26 AM LIQUOR BRIDGE OPERATOR HELPER Noreen Booth RN Hygiene Level of Assistance Moderate assist 06/10/2022 9:00 AM LIQUOR BRIDGE OPERATOR HELPER Franny Garcia RN Toileting: Level of assistance Modified independent;Stand by 06/10/2022 9:00 AM LIQUOR BRIDGE OPERATOR HELPER Franny Garcia RN Reason not bathed/showered Patient/family refused bath/shower 06/04/2022 9:13 PM LIQUOR BRIDGE OPERATOR HELPER Maggy Crystal RN Perineal Care Dara Care 06/08/2022 8:26 AM LIQUOR BRIDGE OPERATOR HELPER Noreen Booth RN Linens Complete linen change 06/06/2022 8:00 AM LIQUOR BRIDGE OPERATOR HELPER Maggy Molina RN Bath Bathed/showered with chlorhexidine (CHG) 06/06/2022 8:00 AM LIQUOR BRIDGE OPERATOR HELPER Maggy Molina, [place] * PT Evaluation Needed Answer Date of Assessment Author 1 05/27/2022 9:37 PM LIQUOR BRIDGE OPERATOR HELPER Rosie Salamanca, [place] * Therapy Consults Question Answer Date of Assessment Author OT Evaluation Needed 1 05/16/2022 6:00 AM Lizeth Charles RN NET DEVELOPMENT MANAGER Evaluation Needed 2 05/16/2022 6:00 AM Lizeth Orozco RN * Question Answer Date of Assessment Author Feeding Level of Assistance Able to feed self 06/10/2022 9:00 AM Franny Barrett RN Appetite Good 06/09/2022 7:50 AM LIQUOR BRIDGE OPERATOR HELPER Uriel Galdamez RN * Question Answer Date of Assessment Author BP Method Automatic 06/10/2022 12:05 PM LIQUOR BRIDGE OPERATOR HELPER Ti Roman * Question Answer Date of [...] Comments XR TRANSFER OF OUTSIDE FILMS Routine 09/30/2018 12:00 AM CDT documented in this encounter Results * XR Outside Reference (09/30/2018 12:00 AM CDT) Impressions RAD_PACS_[facility] - 04/08/2022 8:50 AM LIQUOR BRIDGE OPERATOR HELPER These images are for Reference purposes only and have not been reviewed by [facility] Radiology. There will be no report generated by a [facility] Radiologist. Narrative RAD_PACS_[facility] - 04/08/2022 8:50 AM LIQUOR BRIDGE OPERATOR HELPER EXAMINATION: Images For Reference Purposes Only us [...] documented as of this encounter Care Teams Commercial Fishing Vessel Operator Relationship Specialty Start Date End Date Alan Medel MD PCP - General 07/13/16 10/25/18 documented as of this encounter
--- OUTSIDE RECORDS SUMMARY | 2018-10-31 23:00 | XMS_ITS | Encounter Summary ---
Author Organization [facility] Healthcare Address [address] [place] [address] Care Team Providers Care Water Truck Driver Name Role Phone Alan Medel MD Primary Care Provider Reason for Visit * MRI/CAT/PET Scan (Routine) - Closed Specialty Diagnoses / Procedures Referred By Contac t Referred To Contact Procedures Neuro MR Outside Reference Selvin Paulson MD [address] [address] Phone: tel: fax: Referral ID Status Reason Start Date Expiration Date Visits Re quested Visits Authorized [id number] Closed 04/08/2022 05/08/2023 1 1 Encounter Details Date Type Department Care Team (Late st Contact Info) Description 11/01/2018 Hospital Encounter [facility] [place] [address] Social History Tobacco Use Types Packs/Day Years [...] on file Legal Sex Female 7:23 PM BINDERY MACHINE TENDER Gender Identity Not on file Sexual Orientation [...] Assessment Author Left arm 04/28/2023 4:12 PM BINDERY MACHINE TENDER Dary Garcia LPN * Minh QD Scale Question Answer Date of Assessment Author Mobility 1 06/10/2022 9:00 AM BINDERY MACHINE TENDER Franny Avendano RN Sensory Perception 0 06/10/2022 9:00 AM BINDERY MACHINE TENDER Franny Garcia RN Friction and Shear 1 06/10/2022 9:00 AM BINDERY MACHINE TENDER Franny Garcia RN Nutrition 0 06/10/2022 9:00 AM Franny Collier RN Tissue Perfusion and Oxygenation 0 06/10/2022 9:00 AM Franny Barrett RN Number of Medical Devices 0 06/10/2022 9:00 AM Franny Barrett RN Repositionability/Skin Protection 0 06/10/2022 9:00 AM Franny Barrett RN Minh QD Score 2 06/10/2022 9:00 AM BINDERY MACHINE TENDER Franny Kumar RN * Question Answer Date [...] min task, mod balance 05/29/2022 1:32 PM BINDERY MACHINE TENDER Jennifer Traore OT OT Cognition WFL, per [...] Author BP Method Automatic 06/10/2022 12:05 PM BINDERY MACHINE TENDER Ti Roman * High Fall Risk Interventions [...] Answer Date of Assessment Author Skin Color Pale;[place] 06/07/2022 9:30 AM BINDERY MACHINE TENDER Noreen Ibrahim RN Skin Condition/Temp Warm 06/07/2022 9:30 AM Noreen Cardenas RN Skin Integrity Other (Comment) 06/08/2022 8:56 AM Noreen Ceballos RN Skin Turgor Non-tenting 06/06/2022 8:30 AM BINDERY MACHINE TENDER Maggy Molina RN Integumentary Additional Assessments Yes-Minh QD 06/06/2022 8:30 AM Maggy Paul RN Integumentary (WDL) WDL 02/09/2023 3:30 PM Nena Bermudez RN Skin Location generalized 06/08/2022 8:27 PM BINDERY MACHINE TENDER Maggy Isidro RN * Minh Scale Question Answer Date of Assessment Author Minh Scale Used Minh QD 05/27/2022 9:37 PM BINDERY MACHINE TENDER Carolina Salamanca, [place] * Question Answer Date of Assessment Author LLE Edema No pitting 06/08/2022 8:27 PM Maggy Paul RN Edema Left lower extremity 06/08/2022 8:27 PM C Maggy Meredith RN * Question Answer Date of Assessment Author Percent Meal Eaten (%) 100 06/10/2022 12:05 P M BINDERY MACHINE TENDER Ti Jay Percent Snack Eaten (%) 0 06/09/2022 1:30 P M BINDERY MACHINE TENDER Danita Gonzalez * BP Location Answer Date of Assessment Author Left arm 04/28/2023 4:12 PM BINDERY MACHINE TENDER Dary Garcia LPN * Question Answer Date of Assessment Author Skin Care Skin cleanser 06/01/2022 9:00 PM BINDERY MACHINE TENDER Azra Stanton RN Hygiene Gown Changed 06/06/2022 8:00 AM BINDERY MACHINE TENDER Maggy Molina RN Oral Care Teeth brushed 06/08/2022 8:26 AM BINDERY MACHINE TENDER Noreen Booth RN Hygiene Level of Assistance [...] 1 05/16/2022 6:00 AM Lizeth Charles RN CVICU RN Evaluation Needed 2 05/16/2022 6:00 AM Lizeth Orozco RN * Question Answer Date of Assessment Author Feeding Level of Assistance Able to feed self 06/10/2022 9:00 AM Franny Barrett RN Appetite Good 06/09/2022 7:50 AM BINDERY MACHINE TENDER Uriel Galdamez RN * Question Answer Date of Assessment Author BP Method Automatic 06/10/2022 12:05 PM BINDERY MACHINE TENDER Ti Roman * Question Answer Date of [...] Symptoms Other (Comment) 06/01/2022 8:00 A M BINDERY MACHINE TENDER Rena Siddiqi RN * Question Answer Entry [...] Diagnosis Comments NEURO MR OUTSIDE REFERENCE Routine 11/01/2018 12:00 AM CDT documented in this encounter Results * Neuro MR Outside Reference (11/01/2018 12:00 AM CDT) Impressions RAD_PACS_[facility] - 04/08/2022 8:32 AM BINDERY MACHINE TENDER These images are for Reference purposes only and have not been reviewed by [facility] Radiology. There will be no report generated by a [facility] Radiologist. Narrative RAD_PACS_[facility] - 04/08/2022 8:32 AM BINDERY MACHINE TENDER EXAMINATION: Images For Reference Purposes Only us [...] documented as of this encounter Care Teams Water Truck Driver Relationship Specialty Start Date End Date Alan Medel MD PCP - General 10/26/18 01/20/19 documented as of this encounter
--- OUTSIDE RECORDS SUMMARY | 2018-10-31 23:00 | XMS_ITS | Encounter Summary ---
Author Organization [facility] Healthcare Address [address] [place] [address] Care Team Providers Care Keyseating Machine Set Up Operator Name Role Phone Alan Medel MD Primary Care Provider Encounter Details Date Type Department Care Team (Late st Contact Info) Description 11/01/2018 [place] [address] Social History Tobacco Use Types Packs/Day Years [...] on file Legal Sex Female 7:23 PM PETROLEUM REFINERY OPERATOR Gender Identity Not on file Sexual [...] Assessment Author Left arm 04/28/2023 4:12 PM PETROLEUM REFINERY OPERATOR Dary Garcia LPN * Minh QD [...] Collier RN Diagnosis 4 06/10/2022 9:00 AM Farnny Collier RN Cognitive Impairment 1 06/10/2022 9:00 [...] Author No risk level 05/27/2022 9:37 PM PETROLEUM REFINERY OPERATOR Rosie Salamanca, RN * Alcohol Withdrawal BP Hierarchy Answer Date of Assessment Author 65 02/10/2023 11:18 AM CDT Charla Hernandez CMA * Pressure Injury Prevention Question Answer Date of Assessment Author Pressure Ulcer Prevention Interventions Keep skin clean and dry (Sensory Perception/Moistur e) 06/10/2022 9:00 AM PETROLEUM REFINERY OPERATOR Franny Garcia, RN * AUDIT-C Score [...] Answer Date of Assessment Author Skin Color Pale;[place] 06/07/2022 9:30 AM Noreen Petit, [place] Skin Condition/Temp Warm 06/07/2022 9:30 AM Noreen Cardenas, [place] Skin Integrity Other (Comment) 06/08/2022 8:56 AM Noreen Ceballos, [place] Skin Turgor Non-tenting 06/06/2022 8:30 AM Maggy Paul RN Integumentary Additional Assessments Yes-Minh QD 06/06/2022 8:30 AM Maggy Paul RN Integumentary (WDL) WDL 02/09/2023 3:30 PM Nena Bermudez RN Skin Location generalized 06/08/2022 8:27 PM PETROLEUM REFINERY OPERATOR Maggy Isidro RN * Minh Scale Question Answer Date of Assessment Author Minh Scale Used Minh QD 05/27/2022 9:37 PM PETROLEUM REFINERY OPERATOR Carolina Salamanca, [place] * Question Answer Date of Assessment Author LLE Edema No pitting 06/08/2022 8:27 PM Maggy Paul RN Edema Left lower extremity 06/08/2022 8:[address] Maggy Molina RN * Question Answer Date of Assessment Author Percent Meal Eaten (%) 100 06/10/2022 12:05 P M PETROLEUM REFINERY OPERATOR Ti Jay Percent Snack Eaten (%) 0 06/09/2022 1:30 P M PETROLEUM REFINERY OPERATOR Danita Gonzalez * BP Location Answer Date of Assessment Author Left arm 04/28/2023 4:12 PM PETROLEUM REFINERY OPERATOR Dary Garcia LPN * Question Answer Date of Assessment Author Skin Care Skin cleanser 06/01/2022 9:00 PM PETROLEUM REFINERY OPERATOR Azra Stanton, [place] Hygiene Gown Changed 06/06/2022 8:00 AM PETROLEUM REFINERY OPERATOR Maggy Molina RN Oral Care Teeth brushed 06/08/2022 8:26 AM PETROLEUM REFINERY OPERATOR Noreen Booth RN Hygiene Level of Assistance Moderate assist 06/10/2022 9:00 AM PETROLEUM REFINERY OPERATOR Franny Garcia RN Toileting: Level of assistance Modified independent;Stand by 06/10/2022 9:00 AM PETROLEUM REFINERY OPERATOR Franny Garcia RN Reason not bathed/showered Patient/family refused bath/shower 06/04/2022 9:13 PM PETROLEUM REFINERY OPERATOR Maggy Crystal RN Perineal Care Dara Care 06/08/2022 8:26 AM PETROLEUM REFINERY OPERATOR Noreen Booth RN Linens Complete linen change 06/06/2022 8:00 AM PETROLEUM REFINERY OPERATOR Maggy Molina RN Bath Bathed/showered with chlorhexidine (CHG) 06/06/2022 8:00 AM PETROLEUM REFINERY OPERATOR Maggy Molina, [place] * PT Evaluation Needed Answer Date of Assessment Author 1 05/27/2022 9:37 PM PETROLEUM REFINERY OPERATOR Roise Salamanca, [place] * Therapy Consults Question Answer Date of Assessment Author OT Evaluation Needed 1 05/16/2022 6:00 AM Lizeth Charles RN CHILD AND ADOLESCENT PSYCHIATRIST Evaluation Needed 2 05/16/2022 6:00 AM Lizeth Orozco RN * Question Answer Date of Assessment Author Feeding Level of Assistance Able to feed self 06/10/2022 9:00 AM Franny Barrett RN Appetite Good 06/09/2022 7:50 AM PETROLEUM REFINERY OPERATOR Uriel Galdamez RN * Question Answer Date of Assessment Author BP Method Automatic 06/10/2022 12:05 PM PETROLEUM REFINERY OPERATOR Ti Roman * Question Answer Date [...] Procedure Name Priority Date/Time Associated Diagnosis Comments NM OUTSIDE REFERENCE Routine 11/01/2018 12:00 AM CDT Examination documented in this encounter Results * NM Outside Reference (11/01/2018 12:00 AM CDT) Impressions RAD_PACS_[facility] - 04/08/2022 8:50 AM PETROLEUM REFINERY OPERATOR These images are for Reference purposes only and have not been reviewed by [facility] Radiology. There will be no report generated by a [facility] Radiologist. Narrative RAD_PACS_[facility] - 04/08/2022 8:50 AM PETROLEUM REFINERY OPERATOR EXAMINATION: Images For Reference Purposes Only us Selvin Paulson MD IMG NM PROCEDURES Final Resu lt RAD_PACS_[facility] documented in [...] documented as of this encounter Care Teams Keyseating Machine Set Up Operator Relationship Specialty Start Date End Date Alan Medel MD PCP - General 10/26/18 01/20/19 documented as of this encounter
--- OUTSIDE RECORDS SUMMARY | 2018-10-31 23:05 | XMS_ITS | Encounter Summary ---
Author Organization [facility] Healthcare Address [address] [place] [address] Care Team Providers Care Hat Designer Name Role Phone Alan Medel MD Primary Care Provider Reason for Visit * MRI/CAT/PET Scan (Routine) - Closed Specialty Diagnoses / Procedures Referred By Contac t Referred To Contact Procedures Neuro MR Outside Reference Selvin Paulson MD [address] [address] Phone: tel: fax: Referral ID Status Reason Start Date Expiration Date Visits Re quested Visits Authorized [id number] Closed 04/08/2022 05/08/2023 1 1 Encounter Details Date Type Department Care Team (Late st Contact Info) Description 11/01/2018 12:05 AM CDT Hospital Encounter [facility] [place] [address] Social History Tobacco Use Types Packs/Day Years [...] on file Legal Sex Female 7:23 PM BOILERMAKER SHIP Gender Identity Not on file Sexual Orientation [...] Assessment Author Left arm 04/28/2023 4:12 PM BOILERMAKER SHIP Dary Garcia LPN * Minh QD Scale Question Answer Date of Assessment Author Mobility 1 06/10/2022 9:00 AM BOILERMAKER SHIP Franny Avendano RN Sensory Perception 0 06/10/2022 [...] Minh QD Score 2 06/10/2022 9:00 AM BOILERMAKER SHIP Franny Kumar RN * Question Answer Date [...] min task, mod balance 05/29/2022 1:32 PM BOILERMAKER SHIP Jennifer Traore OT OT Cognition WFL, per pmh pt has a diagnosis of ASD and OCD 05/29/2022 1:32 PM Jennifer Dinero OT OT Communication WFL, very soft spoken 05/29/2022 1:32 PM BOILERMAKER SHIP Traore, Jennifer, OT * B.M.A.T. - Bedside Mobility Assessment [...] No risk level 05/27/2022 9:37 PM Rosie Mata RN * Alcohol Withdrawal BP Hierarchy Answer Date of Assessment Author 65 02/10/2023 11:18 AM JOSAFATT Charla Hernandez CMA * Pressure Injury Prevention [...] not drink 12/10/2022 7:40 PM CDT Nadja Nichole, [place] Q3: How often do you have six or more drinks on one occasion? Never 12/10/2022 7:40 PM CDT Nadja Nichole, [place] * Integumentary Question Answer Date of Assessment Author Integumentary (WDL) X 05/15/2022 11:06 PM Maggy Veronica RN * Integumentary Question Answer Date of Assessment Author Skin Color Pale;[place] 06/07/2022 9:30 AM BOILERMAKER SHIP Noreen Ibrahim RN Skin Condition/Temp Warm 06/07/2022 9:30 AM Noreen Cardenas, [place] Skin Integrity Other (Comment) 06/08/2022 8:56 AM Noreen Ceballos RN Skin Turgor Non-tenting 06/06/2022 8:30 AM BOILERMAKER SHIP Maggy Molina RN Integumentary Additional Assessments Yes-Minh QD 06/06/2022 8:30 AM Maggy Paul RN Integumentary (WDL) WDL 02/09/2023 3:30 PM Nena Bermudez RN Skin Location generalized 06/08/2022 8:27 PM BOILERMAKER SHIP Maggy Isidro RN * Minh Scale Question Answer Date of Assessment Author Minh Scale Used Minh QD 05/27/2022 9:37 PM BOILERMAKER SHIP Carolina Salamanca, [place] * Question Answer Date of Assessment Author LLE Edema No pitting 06/08/2022 8:27 PM BOILERMAKER SHIP Maggy Molina RN Edema Left lower extremity 06/08/2022 8:27 PM C Maggy Meredith, RN * Question Answer Date of Assessment Author Percent Meal Eaten (%) 100 06/10/2022 12:05 P M BOILERMAKER SHIP Ti Jay Percent Snack Eaten (%) 0 06/09/2022 1:30 P M BOILERMAKER SHIP Danita Gnozalez * BP Location Answer Date of Assessment Author Left arm 04/28/2023 4:12 PM BOILERMAKER SHIP Dary Garcia LPN * Question Answer Date of Assessment Author Skin Care Skin cleanser 06/01/2022 9:00 PM BOILERMAKER SHIP Azra Stanton RN Hygiene Gown Changed 06/06/2022 8:00 AM BOILERMAKER SHIP Maggy Molina RN Oral Care Teeth brushed 06/08/2022 8:26 AM BOILERMAKER SHIP Noreen Booth RN Hygiene Level of Assistance [...] 1 05/16/2022 6:00 AM Lizeth Charles RN MUTUEL DEPARTMENT MANAGER Evaluation Needed 2 05/16/2022 6:00 AM Lizeth Orozco RN * Question Answer Date of Assessment Author Feeding Level of Assistance Able to feed self 06/10/2022 9:00 AM Franny Barrett RN Appetite Good 06/09/2022 7:50 AM BOILERMAKER SHIP Uriel Galdamez RN * Question Answer Date of Assessment Author BP Method Automatic 06/10/2022 12:05 PM BOILERMAKER SHIP Ti Roman * Question Answer Date of [...] Symptoms Other (Comment) 06/01/2022 8:00 A M BOILERMAKER SHIP Rena Siddiqi RN * Question Answer Entry [...] Comments NEURO MR OUTSIDE REFERENCE Routine 11/01/2018 12:05 AM CDT documented in this encounter Results * Neuro MR Outside Reference (11/01/2018 12:05 AM CDT) Impressions RAD_PACS_[facility] - 04/08/2022 10:33 AM BOILERMAKER SHIP These images are for Reference purposes only and have not been reviewed by [facility] Radiology. There will be no report generated by a [facility] Radiologist. Narrative RAD_PACS_[facility] - 04/08/2022 10:33 AM BOILERMAKER SHIP EXAMINATION: Images For Reference Purposes Only us [...] documented as of this encounter Care Teams Hat Designer Relationship Specialty Start Date End Date Alan Medel MD PCP - General 10/26/18 01/20/19 documented as of this encounter
--- OUTSIDE RECORDS SUMMARY | 2018-11-09 23:00 | XMS_ITS | Encounter Summary ---
Author Organization [facility] Healthcare Address [address] [place] [address] Care Team Providers Care Car Conditioner Name Role Phone Alan Medel MD Primary Care Provider Encounter Details Date Type Department Care Team (Late st Contact Info) Description 11/10/2018 [place] [address] Social History Tobacco Use Types Packs/Day Years [...] on file Legal Sex Female 7:23 PM PIGEON FANCIER Gender Identity Not on file Sexual Orientation [...] Assessment Author Left arm 04/28/2023 4:12 PM PIGEON FANCIER Dary Garcia LPN * Minh QD Scale [...] Author No risk level 05/27/2022 9:37 PM PIGEON FANCIER Rosie Salamanca, RN * Alcohol Withdrawal BP Hierarchy Answer Date of Assessment Author 65 02/10/2023 11:18 AM CDT Charla Hernandez CMA * Pressure Injury Prevention Question Answer Date of Assessment Author Pressure Ulcer Prevention Interventions Keep skin clean and dry (Sensory Perception/Moistur e) 06/10/2022 9:00 AM PIGEON FANCIER Franny Garcia, RN * AUDIT-C Score Answer [...] Answer Date of Assessment Author Skin Color Pale;[place] 06/07/2022 9:30 AM Noreen Petit, [place] Skin Condition/Temp Warm 06/07/2022 9:30 AM Noreen Cardenas, [place] Skin Integrity Other (Comment) 06/08/2022 8:56 AM Noreen Ceballos, [place] Skin Turgor Non-tenting 06/06/2022 8:30 AM Maggy Paul RN Integumentary Additional Assessments Yes-Minh QD 06/06/2022 8:30 AM Maggy Paul RN Integumentary (WDL) WDL 02/09/2023 3:30 PM Nena Bermudez RN Skin Location generalized 06/08/2022 8:27 PM PIGEON FANCIER Maggy Isidro RN * Minh Scale Question Answer Date of Assessment Author Minh Scale Used Minh QD 05/27/2022 9:37 PM PIGEON FANCIER Carolina Salamanca, [place] * Question Answer Date of Assessment Author LLE Edema No pitting 06/08/2022 8:27 PM Maggy Paul RN Edema Left lower extremity 06/08/2022 8:[address] Maggy Molina RN * Question Answer Date of Assessment Author Percent Meal Eaten (%) 100 06/10/2022 12:05 P M PIGEON FANCIER Ti Jay Percent Snack Eaten (%) 0 06/09/2022 1:30 P M PIGEON FANCIER Danita Gonzalez * BP Location Answer Date of Assessment Author Left arm 04/28/2023 4:12 PM PIGEON FANCIER Dary Garcia LPN * Question Answer Date of Assessment Author Skin Care Skin cleanser 06/01/2022 9:00 PM PIGEON FANCIER Azra Stanton, [place] Hygiene Gown Changed 06/06/2022 8:00 AM PIGEON FANCIER Maggy Molina RN Oral Care Teeth brushed 06/08/2022 8:26 AM PIGEON FANCIER Noreen Booth RN Hygiene Level of Assistance Moderate assist 06/10/2022 9:00 AM PIGEON FANCIER Franny Garcia RN Toileting: Level of assistance Modified independent;Stand by 06/10/2022 9:00 AM PIGEON FANCIER Franny Garcia RN Reason not bathed/showered Patient/family refused bath/shower 06/04/2022 9:13 PM PIGEON FANCIER Maggy Crystal RN Perineal Care Dara Care 06/08/2022 8:26 AM PIGEON FANCIER Noreen Booth RN Linens Complete linen change 06/06/2022 8:00 AM PIGEON FANCIER Maggy Molina RN Bath Bathed/showered with chlorhexidine (CHG) 06/06/2022 8:00 AM PIGEON FANCIER Maggy Molina, [place] * PT Evaluation Needed Answer Date of Assessment Author 1 05/27/2022 9:37 PM PIGEON FANCIER Rosie Salamanca, [place] * Therapy Consults Question Answer Date of Assessment Author OT Evaluation Needed 1 05/16/2022 6:00 AM Lizeth Charles RN CHILD CUSTODY EVALUATOR Evaluation Needed 2 05/16/2022 6:00 AM Lizeth Orozco RN * Question Answer Date of Assessment Author Feeding Level of Assistance Able to feed self 06/10/2022 9:00 AM Franny Barrett RN Appetite Good 06/09/2022 7:50 AM PIGEON FANCIER Uriel Galdamez RN * Question Answer Date of Assessment Author BP Method Automatic 06/10/2022 12:05 PM PIGEON FANCIER Ti Roman * Question Answer Date of [...] Comments XR TRANSFER OF OUTSIDE FILMS Routine 11/10/2018 12:00 AM CDT documented in this encounter Results * XR Outside Reference (11/10/2018 12:00 AM CDT) Impressions [facility] - 04/08/2022 10:34 AM PIGEON FANCIER These images are for Reference purposes only and have not been reviewed by [facility] Radiology. There will be no report generated by a [facility] Radiologist. Narrative [facility] - 04/08/2022 10:34 AM PIGEON FANCIER EXAMINATION: Images For Reference Purposes Only us [...] documented as of this encounter Care Teams Car Conditioner Relationship Specialty Start Date End Date Alna Medel MD PCP - General 10/26/18 01/20/19 documented as of this encounter
--- OUTSIDE RECORDS SUMMARY | 2018-11-21 23:00 | XMS_ITS | Encounter Summary ---
Author Organization [facility] Healthcare Address [address] [place] [address] Care Team Providers Care Product Development Consultant Name Role Phone Alan Medel MD Primary Care Provider Encounter Details Date Type Department Care Team (Late st Contact Info) Description 11/22/2018 [place] [address] Social History Tobacco Use Types Packs/Day Years [...] on file Legal Sex Female 7:23 PM RIVETING MACHINE OPERATOR TAPE CONTROL Gender Identity Not on file Sexual Orientation [...] Assessment Author Left arm 04/28/2023 4:12 PM RIVETING MACHINE OPERATOR TAPE CONTROL Dary Garcia LPN * Minh QD Scale [...] Author No risk level 05/27/2022 9:37 PM RIVETING MACHINE OPERATOR TAPE CONTROL Rosie Salamanca, RN * Alcohol Withdrawal BP Hierarchy Answer Date of Assessment Author 65 02/10/2023 11:18 AM CDT Charla Hernandez CMA * Pressure Injury Prevention Question Answer Date of Assessment Author Pressure Ulcer Prevention Interventions Keep skin clean and dry (Sensory Perception/Moistur e) 06/10/2022 9:00 AM RIVETING MACHINE OPERATOR TAPE CONTROL Franny Garcia, RN * AUDIT-C Score Answer [...] Answer Date of Assessment Author Skin Color Pale;[place] 06/07/2022 9:30 AM Noreen Petit, [place] Skin Condition/Temp Warm 06/07/2022 9:30 AM Noreen Cardenas, [place] Skin Integrity Other (Comment) 06/08/2022 8:56 AM Noreen Ceballos, [place] Skin Turgor Non-tenting 06/06/2022 8:30 AM Maggy Paul RN Integumentary Additional Assessments Yes-Minh QD 06/06/2022 8:30 AM Maggy Paul RN Integumentary (WDL) WDL 02/09/2023 3:30 PM Nena Bermudez RN Skin Location generalized 06/08/2022 8:27 PM RIVETING MACHINE OPERATOR TAPE CONTROL Maggy Isidro RN * Minh Scale Question Answer Date of Assessment Author Minh Scale Used Minh QD 05/27/2022 9:37 PM RIVETING MACHINE OPERATOR TAPE CONTROL Carolina Salamanca, [place] * Question Answer Date of Assessment Author LLE Edema No pitting 06/08/2022 8:27 PM Maggy Paul RN Edema Left lower extremity 06/08/2022 8:[address] Maggy Molina RN * Question Answer Date of Assessment Author Percent Meal Eaten (%) 100 06/10/2022 12:05 P M RIVETING MACHINE OPERATOR TAPE CONTROL Ti Jay Percent Snack Eaten (%) 0 06/09/2022 1:30 P M RIVETING MACHINE OPERATOR TAPE CONTROL Danita Gonzalez * BP Location Answer Date of Assessment Author Left arm 04/28/2023 4:12 PM RIVETING MACHINE OPERATOR TAPE CONTROL Dary Garcia LPN * Question Answer Date of Assessment Author Skin Care Skin cleanser 06/01/2022 9:00 PM RIVETING MACHINE OPERATOR TAPE CONTROL Azra Stanton, [place] Hygiene Gown Changed 06/06/2022 8:00 AM RIVETING MACHINE OPERATOR TAPE CONTROL Maggy Molina RN Oral Care Teeth brushed 06/08/2022 8:26 AM RIVETING MACHINE OPERATOR TAPE CONTROL Noreen Booth RN Hygiene Level of Assistance Moderate assist 06/10/2022 9:00 AM RIVETING MACHINE OPERATOR TAPE CONTROL Franny Garcia RN Toileting: Level of assistance Modified independent;Stand by 06/10/2022 9:00 AM RIVETING MACHINE OPERATOR TAPE CONTROL Franny Garcia RN Reason not bathed/showered Patient/family refused bath/shower 06/04/2022 9:13 PM RIVETING MACHINE OPERATOR TAPE CONTROL Maggy Crystal RN Perineal Care Dara Care 06/08/2022 8:26 AM RIVETING MACHINE OPERATOR TAPE CONTROL Noreen Booth RN Linens Complete linen change 06/06/2022 8:00 AM RIVETING MACHINE OPERATOR TAPE CONTROL Maggy Molina RN Bath Bathed/showered with chlorhexidine (CHG) 06/06/2022 8:00 AM RIVETING MACHINE OPERATOR TAPE CONTROL Maggy Molina, [place] * PT Evaluation Needed Answer Date of Assessment Author 1 05/27/2022 9:37 PM RIVETING MACHINE OPERATOR TAPE CONTROL Rosie Salamanca, [place] * Therapy Consults Question Answer Date of Assessment Author OT Evaluation Needed 1 05/16/2022 6:00 AM Lizeth Charles RN COYOTE HUNTER Evaluation Needed 2 05/16/2022 6:00 AM Lizeth Orozco RN * Question Answer Date of Assessment Author Feeding Level of Assistance Able to feed self 06/10/2022 9:00 AM Franny Barrett RN Appetite Good 06/09/2022 7:50 AM RIVETING MACHINE OPERATOR TAPE CONTROL Uriel Galdamez RN * Question Answer Date of Assessment Author BP Method Automatic 06/10/2022 12:05 PM RIVETING MACHINE OPERATOR TAPE CONTROL Ti Roman * Question Answer Date of [...] Comments XR TRANSFER OF OUTSIDE FILMS Routine 11/22/2018 12:00 AM CDT documented in this encounter Results * XR Outside Reference (11/22/2018 12:00 AM CDT) Impressions [facility] - 04/08/2022 10:34 AM RIVETING MACHINE OPERATOR TAPE CONTROL These images are for Reference purposes only and have not been reviewed by [facility] Radiology. There will be no report generated by a [facility] Radiologist. Narrative RAD_PACS_[facility] - 04/08/2022 10:34 AM RIVETING MACHINE OPERATOR TAPE CONTROL EXAMINATION: Images For Reference Purposes Only us [...] documented as of this encounter Care Teams Product Development Consultant Relationship Specialty Start Date End Date Alan Medel MD PCP - General 10/26/18 01/20/19 documented as of this encounter
--- OUTSIDE RECORDS SUMMARY | 2018-12-26 23:00 | XMS_ITS | Encounter Summary ---
Author Organization [facility] Healthcare Address [address] [place] [address] Care Team Providers Care Extract Mixer Name Role Phone Alan Medel MD Primary Care Provider Reason for Visit * MRI/CAT/PET Scan (Routine) - Closed Specialty Diagnoses / Procedures Referred By Contac t Referred To Contact Procedures Neuro MR Outside Reference Selvin Paulson MD [address] [address] Phone: tel: fax: Referral ID Status Reason Start Date Expiration Date Visits Re quested Visits Authorized [id number] Closed 04/08/2022 05/08/2023 1 1 Encounter Details Date Type Department Care Team (Late st Contact Info) Description 12/27/2018 Hospital Encounter [facility] [place] [address] Social History Tobacco Use Types Packs/Day Years [...] on file Legal Sex Female 7:23 PM GARBAGE WORKER Gender Identity Not on file Sexual Orientation [...] Assessment Author Left arm 04/28/2023 4:12 PM GARBAGE WORKER Dary Garcia LPN * Minh QD Scale Question Answer Date of Assessment Author Mobility 1 06/10/2022 9:00 AM GARBAGE WORKER Franny Avendano RN Sensory Perception 0 06/10/2022 9:00 AM GARBAGE WORKER Franny Garcia RN Friction and Shear 1 06/10/2022 9:00 AM GARBAGE WORKER Franny Garcia RN Nutrition 0 06/10/2022 9:00 AM Franny Collier RN Tissue Perfusion and Oxygenation 0 06/10/2022 9:00 AM Franny Barrett RN Number of Medical Devices 0 06/10/2022 9:00 AM Franny Barrett RN Repositionability/Skin Protection 0 06/10/2022 9:00 AM Franny Barrett RN Minh QD Score 2 06/10/2022 9:00 AM GARBAGE WORKER Farnny Kumar RN * Question Answer Date of [...] min task, mod balance 05/29/2022 1:32 PM GARBAGE WORKER Jennifer Traore OT OT Cognition WFL, per [...] Author BP Method Automatic 06/10/2022 12:05 PM GARBAGE WORKER Ti Roman * High Fall Risk Interventions [...] Integumentary (WDL) X 05/15/2022 11:06 PM Maggy Vreonica RN * Integumentary Question Answer Date of Assessment Author Skin Color Pale;[place] 06/07/2022 9:30 AM GARBAGE WORKER Noreen Ibrahim RN Skin Condition/Temp Warm 06/07/2022 9:30 AM Noreen Cardenas RN Skin Integrity Other (Comment) 06/08/2022 8:56 AM Noreen Ceballos RN Skin Turgor Non-tenting 06/06/2022 8:30 AM GARBAGE WORKER Maggy Molina RN Integumentary Additional Assessments Yes-Minh QD 06/06/2022 8:30 AM Maggy Paul RN Integumentary (WDL) WDL 02/09/2023 3:30 PM Nena Bermudez RN Skin Location generalized 06/08/2022 8:27 PM GARBAGE WORKER Maggy Isidro RN * Minh Scale Question Answer Date of Assessment Author Minh Scale Used Minh QD 05/27/2022 9:37 PM GARBAGE WORKER Carolina Salamanca, [place] * Question Answer Date of Assessment Author LLE Edema No pitting 06/08/2022 8:27 PM Maggy Paul RN Edema Left lower extremity 06/08/2022 8:27 PM C Maggy Meredith RN * Question Answer Date of Assessment Author Percent Meal Eaten (%) 100 06/10/2022 12:05 P M GARBAGE WORKER Ti Jay Percent Snack Eaten (%) 0 06/09/2022 1:30 P M GARBAGE WORKER Danita Gonzalez * BP Location Answer Date of Assessment Author Left arm 04/28/2023 4:12 PM GARBAGE WORKER Dary Garcia LPN * Question Answer Date of Assessment Author Skin Care Skin cleanser 06/01/2022 9:00 PM GARBAGE WORKER Azra Stanton RN Hygiene Gown Changed 06/06/2022 8:00 AM GARBAGE WORKER Maggy Molina RN Oral Care Teeth brushed 06/08/2022 8:26 AM GARBAGE WORKER Noreen Booth RN Hygiene Level of Assistance Moderate assist 06/10/2022 9:00 AM Franny Barrett RN Toileting: Level of assistance Modified independent;Stand by 06/10/2022 9:00 AM Franny Barrett RN Reason not bathed/showered Patient/family refused bath/shower 06/04/2022 9:13 PM aMggy Coombs RN Perineal Care Dara Care 06/08/2022 [...] 1 05/16/2022 6:00 AM Lizeth Charles RN TAKE OFF MAN Evaluation Needed 2 05/16/2022 6:00 AM Lizeth Orozco RN * Question Answer Date of Assessment Author Feeding Level of Assistance Able to feed self 06/10/2022 9:00 AM Franny Barrett RN Appetite Good 06/09/2022 7:50 AM GARBAGE WORKER Uriel Galdamez RN * Question Answer Date of Assessment Author BP Method Automatic 06/10/2022 12:05 PM GARBAGE WORKER Ti Roman * Question Answer Date of [...] Symptoms Other (Comment) 06/01/2022 8:00 A M GARBAGE WORKER Rena Siddiqi RN * Question Answer Entry [...] Diagnosis Comments NEURO MR OUTSIDE REFERENCE Routine 12/27/2018 12:00 AM CDT documented in this encounter Results * Neuro MR Outside Reference (12/27/2018 12:00 AM CDT) Impressions [facility] - 04/08/2022 8:32 AM GARBAGE WORKER These images are for Reference purposes only and have not been reviewed by [facility] Radiology. There will be no report generated by a [facility] Radiologist. Narrative RAD_PACS_[facility] - 04/08/2022 8:32 AM GARBAGE WORKER EXAMINATION: Images For Reference Purposes Only us [...] documented as of this encounter Care Teams Extract Mixer Relationship Specialty Start Date End Date Alan Medel MD PCP - General 10/26/18 01/20/19 documented as of this encounter
--- OUTSIDE RECORDS SUMMARY | 2019-01-09 23:00 | XMS_ITS | Encounter Summary ---
Author Organization [facility] Healthcare Address [address] [place] [address] Care Team Providers Care Carbonizer Tester Name Role Phone Alan Medel MD Primary Care Provider Encounter Details Date Type Department Care Team (Late st Contact Info) Description 01/10/2019 [place] [address] Social History Tobacco Use Types Packs/Day Years [...] on file Legal Sex Female 7:23 PM CERTIFIED RESPIRATORY THERAPIST Gender Identity Not on file Sexual Orientation [...] Assessment Author Left arm 04/28/2023 4:12 PM CERTIFIED RESPIRATORY THERAPIST Dary Garcia LPN * Minh QD Scale [...] Author No risk level 05/27/2022 9:37 PM CERTIFIED RESPIRATORY THERAPIST Rosie Salamanca, RN * Alcohol Withdrawal BP Hierarchy Answer Date of Assessment Author 65 02/10/2023 11:18 AM CDT Charla Hernandez CMA * Pressure Injury Prevention Question Answer Date of Assessment Author Pressure Ulcer Prevention Interventions Keep skin clean and dry (Sensory Perception/Moistur e) 06/10/2022 9:00 AM CERTIFIED RESPIRATORY THERAPIST Franny Garcia, RN * AUDIT-C Score Answer [...] Answer Date of Assessment Author Skin Color Pale;[place] 06/07/2022 9:30 AM Noreen Petit, [place] Skin Condition/Temp Warm 06/07/2022 9:30 AM Noreen Cardenas, [place] Skin Integrity Other (Comment) 06/08/2022 8:56 AM Noreen Ceballos, [place] Skin Turgor Non-tenting 06/06/2022 8:30 AM Maggy Paul RN Integumentary Additional Assessments Yes-Minh QD 06/06/2022 8:30 AM Maggy Paul RN Integumentary (WDL) WDL 02/09/2023 3:30 PM Nena Bermudez RN Skin Location generalized 06/08/2022 8:27 PM CERTIFIED RESPIRATORY THERAPIST Maggy Isidro RN * Minh Scale Question Answer Date of Assessment Author Minh Scale Used Minh QD 05/27/2022 9:37 PM CERTIFIED RESPIRATORY THERAPIST Carolina Salamanca, [place] * Question Answer Date of Assessment Author LLE Edema No pitting 06/08/2022 8:27 PM Maggy Paul RN Edema Left lower extremity 06/08/2022 8:[address] Maggy Molina RN * Question Answer Date of Assessment Author Percent Meal Eaten (%) 100 06/10/2022 12:05 P M CERTIFIED RESPIRATORY THERAPIST Ti Jay Percent Snack Eaten (%) 0 06/09/2022 1:30 P M CERTIFIED RESPIRATORY THERAPIST Danita Gonzalez * BP Location Answer Date of Assessment Author Left arm 04/28/2023 4:12 PM CERTIFIED RESPIRATORY THERAPIST Dary Garcia LPN * Question Answer Date of Assessment Author Skin Care Skin cleanser 06/01/2022 9:00 PM CERTIFIED RESPIRATORY THERAPIST Azra Stanton, [place] Hygiene Gown Changed 06/06/2022 8:00 AM CERTIFIED RESPIRATORY THERAPIST Maggy Molina RN Oral Care Teeth brushed 06/08/2022 8:26 AM CERTIFIED RESPIRATORY THERAPIST Noreen Booth RN Hygiene Level of Assistance Moderate assist 06/10/2022 9:00 AM CERTIFIED RESPIRATORY THERAPIST Franny Garcia RN Toileting: Level of assistance Modified independent;Stand by 06/10/2022 9:00 AM CERTIFIED RESPIRATORY THERAPIST Franny Garcia RN Reason not bathed/showered Patient/family refused bath/shower 06/04/2022 9:13 PM CERTIFIED RESPIRATORY THERAPIST Maggy Crystal RN Perineal Care Dara Care 06/08/2022 8:26 AM CERTIFIED RESPIRATORY THERAPIST Noreen Booth RN Linens Complete linen change 06/06/2022 8:00 AM CERTIFIED RESPIRATORY THERAPIST Maggy Molina RN Bath Bathed/showered with chlorhexidine (CHG) 06/06/2022 8:00 AM CERTIFIED RESPIRATORY THERAPIST Maggy Molina, [place] * PT Evaluation Needed Answer Date of Assessment Author 1 05/27/2022 9:37 PM CERTIFIED RESPIRATORY THERAPIST Rosie Salamanca, [place] * Therapy Consults Question Answer Date of Assessment Author OT Evaluation Needed 1 05/16/2022 6:00 AM Lizeth Charles RN PERSONAL SERVICE WORKERS Evaluation Needed 2 05/16/2022 6:00 AM Lizeth Orozco RN * Question Answer Date of Assessment Author Feeding Level of Assistance Able to feed self 06/10/2022 9:00 AM Franny Barrett RN Appetite Good 06/09/2022 7:50 AM CERTIFIED RESPIRATORY THERAPIST Uriel Galdamez RN * Question Answer Date of Assessment Author BP Method Automatic 06/10/2022 12:05 PM CERTIFIED RESPIRATORY THERAPIST Ti Roman * Question Answer Date of [...] Comments XR TRANSFER OF OUTSIDE FILMS Routine 01/10/2019 12:00 AM CDT documented in this encounter Results * XR Outside Reference (01/10/2019 12:00 AM CDT) Impressions RAD_PACS_[facility] - 04/08/2022 10:35 AM CERTIFIED RESPIRATORY THERAPIST These images are for Reference purposes only and have not been reviewed by [facility] Radiology. There will be no report generated by a [facility] Radiologist. Narrative RAD_PACS_[facility] - 04/08/2022 10:35 AM CERTIFIED RESPIRATORY THERAPIST EXAMINATION: Images For Reference Purposes Only us [...] documented as of this encounter Care Teams Carbonizer Tester Relationship Specialty Start Date End Date Alan Medel MD PCP - General 10/26/18 01/20/19 documented as of this encounter
--- OUTSIDE RECORDS SUMMARY | 2019-01-23 23:00 | XMS_ITS | Encounter Summary ---
Author Organization [facility] Healthcare Address [address] [place] [address] Care Team Providers Care Air Defence Officer Name Role Phone Miscellaneous, Not In File Primary Care Provider Unavailable Reason for Visit * MRI/CAT/PET Scan (Routine) - Closed Specialty Diagnoses / Procedures Referred By Makayla lucas Referred To Contact Procedures Neuro CT Outside Reference Selvin Paulson MD [address] [address] Phone: tel: fax: Referral ID Status Reason Start Date Expiration Date Visits Re quested Visits Authorized [id number] Closed 04/08/2022 05/08/2023 1 1 Encounter Details Date Type Department Care Team (Late st Contact Info) Description 01/24/2019 Hospital Encounter [facility] [place] [address] Social History Tobacco Use Types Packs/Day Years [...] on file Legal Sex Female 7:23 PM PROGRAM COORDINATOR EXECUTIVE EDUCATION Gender Identity Not on file Sexual Orientation [...] Assessment Author Left arm 04/28/2023 4:12 PM PROGRAM COORDINATOR EXECUTIVE EDUCATION Dary Garcia LPN * Minh QD Scale [...] Minh QD Score 2 06/10/2022 9:00 AM PROGRAM COORDINATOR EXECUTIVE EDUCATION Franny Kumar RN * Question Answer Date [...] Author BP Method Automatic 06/10/2022 12:05 PM PROGRAM COORDINATOR EXECUTIVE EDUCATION Ti Roman * High Fall Risk Interventions [...] Assessment Author 0 12/10/2022 7:40 PM Fawad Moraeu RN * Alcohol Use Question Answer Date [...] Answer Date of Assessment Author Skin Color Pale;[place] 06/07/2022 9:30 AM PROGRAM COORDINATOR EXECUTIVE EDUCATION Noreen Ibrahim RN Skin Condition/Temp Warm 06/07/2022 9:30 AM Noreen Cardenas, [place] Skin Integrity Other (Comment) 06/08/2022 8:56 AM Noreen Ceballos RN Skin Turgor Non-tenting 06/06/2022 8:30 AM PROGRAM COORDINATOR EXECUTIVE EDUCATION Maggy Molina RN Integumentary Additional Assessments Yes-Minh QD 06/06/2022 8:30 AM Maggy Paul RN Integumentary (WDL) WDL 02/09/2023 3:30 PM Nena Bermudez RN Skin Location generalized 06/08/2022 8:27 PM PROGRAM COORDINATOR EXECUTIVE EDUCATION Maggy Isidro RN * Minh Scale Question Answer Date of Assessment Author Minh Scale Used Minh QD 05/27/2022 9:37 PM PROGRAM COORDINATOR EXECUTIVE EDUCATION Carolina Salamanca, [place] * Question Answer Date of Assessment Author LLE Edema No pitting 06/08/2022 8:27 PM Maggy Paul RN Edema Left lower extremity 06/08/2022 8:27 PM C Maggy Meredith RN * Question Answer Date of Assessment Author Percent Meal Eaten (%) 100 06/10/2022 12:05 P M PROGRAM COORDINATOR EXECUTIVE EDUCATION Ti Jay Percent Snack Eaten (%) 0 06/09/2022 1:30 P M PROGRAM COORDINATOR EXECUTIVE EDUCATION Danita Gonzalez * BP Location Answer Date of Assessment Author Left arm 04/28/2023 4:12 PM PROGRAM COORDINATOR EXECUTIVE EDUCATION Dary Garcia LPN * Question Answer Date of Assessment Author Skin Care Skin cleanser 06/01/2022 9:00 PM PROGRAM COORDINATOR EXECUTIVE EDUCATION Azra Stanton, [place] Hygiene Gown Changed 06/06/2022 8:00 AM Maggy Paul RN Oral Care Teeth brushed 06/08/2022 8:26 AM PROGRAM COORDINATOR EXECUTIVE EDUCATION Noreen Booth RN Hygiene Level of Assistance [...] Bathed/showered with chlorhexidine (CHG) 06/06/2022 8:00 AM PROGRAM COORDINATOR EXECUTIVE EDUCATION Maggy Molina RN * PT Evaluation Needed Answer Date of Assessment Author 1 05/27/2022 9:37 PM Rosie Mata RN * Therapy Consults Question Answer Date of Assessment Author OT Evaluation Needed 1 05/16/2022 6:00 AM Lizeth Charles RN DEVELOPMENT ADMINISTRATOR Evaluation Needed 2 05/16/2022 6:00 AM Lizeth Orozco RN * Question Answer Date of Assessment Author Feeding Level of Assistance Able to feed self 06/10/2022 9:00 AM Franny Barrett RN Appetite Good 06/09/2022 7:50 AM PROGRAM COORDINATOR EXECUTIVE EDUCATION Uriel Galdamez RN * Question Answer Date of Assessment Author BP Method Automatic 06/10/2022 12:05 PM PROGRAM COORDINATOR EXECUTIVE EDUCATION Ti Roman * Question Answer Date of [...] Symptoms Other (Comment) 06/01/2022 8:00 A M PROGRAM COORDINATOR EXECUTIVE EDUCATION Rena Siddiqi, [place] * Question Answer Entry [...] Worsening( 9:24 AM CDT) No Aylin Lobato, [place] Note: Problem: Chronic Pain Goals: 1. Minimize further functional decline 2. Maximize quality of life 3. Control pain Strategies: - Activity/exercise program recommendation - Conservative stepwise pain medicine strategy with multi-disciplinary approach - Recommend healthy lifestyle strategies and compensatory methods as needed documented as of this encounter Procedures Procedure Name Priority Date/Time Associated Diagnosis Comments NEURO CT OUTSIDE REFERENCE Routine 01/24/2019 12:00 AM CDT documented in this encounter Results * Neuro CT Outside Reference (01/24/2019 12:00 AM CDT) Impressions RAD[facility] - 04/08/2022 10:35 AM PROGRAM COORDINATOR EXECUTIVE EDUCATION These images are for Reference purposes only and have not been reviewed by [facility] Radiology. There will be no report generated by a [facility] Radiologist. Narrative RAD_PACS_[facility] - 04/08/2022 10:35 AM PROGRAM COORDINATOR EXECUTIVE EDUCATION EXAMINATION: Images For Reference Purposes Only us Selvin Paulson MD IMG CT PROCEDURES Final Resu lt RAD_PACS_[facility] documented in [...] documented as of this encounter Care Teams Air Defence Officer Relationship Specialty Start Date End Date Miscellaneous, Not In File PCP - General 01/21/19 documented as of this encounter
--- OUTSIDE RECORDS SUMMARY | 2019-03-07 | XMS_ITS | Encounter Summary ---
Author Organization [facility] Healthcare Address [address] [place] [address] Care Team Providers Care Tub Tender Name Role Phone Michael Duncan MD Primary Care Provider Encounter Details Date Type Department Care Team (Late st Contact Info) Description 03/07/2019 [place] [address] Social History Tobacco Use Types Packs/Day Years [...] on file Legal Sex Female 7:23 PM REGIONAL TRUCK DRIVER Gender Identity Not on file Sexual Orientation [...] Assessment Author Left arm 04/28/2023 4:12 PM REGIONAL TRUCK DRIVER Dary Garcia LPN * Minh QD Scale [...] Level 3 - Yellow 06/10/2022 9:00 AM REGIONAL TRUCK DRIVER Fujawa, Franny Kayleen, RN Level 3 Equipment Use assistive device [...] Author No risk level 05/27/2022 9:37 PM REGIONAL TRUCK DRIVER Rosie Salamanca, RN * Alcohol Withdrawal BP Hierarchy Answer Date of Assessment Author 65 02/10/2023 11:18 AM CDT Charla Hernandez CMA * Pressure Injury Prevention Question Answer Date of Assessment Author Pressure Ulcer Prevention Interventions Keep skin clean and dry (Sensory Perception/Moistur e) 06/10/2022 9:00 AM REGIONAL TRUCK DRIVER Franny Garcia, RN * AUDIT-C Score Answer [...] Answer Date of Assessment Author Skin Color Pale;[place] 06/07/2022 9:30 AM Noreen Petit, [place] Skin Condition/Temp Warm 06/07/2022 9:30 AM Noreen Cardenas, [place] Skin Integrity Other (Comment) 06/08/2022 8:56 AM Noreen Ceballos, [place] Skin Turgor Non-tenting 06/06/2022 8:30 AM Maggy Paul RN Integumentary Additional Assessments Yes-Minh QD 06/06/2022 8:30 AM Maggy Paul RN Integumentary (WDL) WDL 02/09/2023 3:30 PM Nena Bermudez RN Skin Location generalized 06/08/2022 8:27 PM REGIONAL TRUCK DRIVER Maggy Isidro RN * Minh Scale Question Answer Date of Assessment Author Minh Scale Used Minh QD 05/27/2022 9:37 PM REGIONAL TRUCK DRIVER Carolina Salamanca RN * Question Answer Date of Assessment Author LLE Edema No pitting 06/08/2022 8:27 PM Maggy Paul RN Edema Left lower extremity 06/08/2022 8:[address] Maggy Molina RN * Question Answer Date of Assessment Author Percent Meal Eaten (%) 100 06/10/2022 12:05 P M REGIONAL TRUCK DRIVER Ti Jay Percent Snack Eaten (%) 0 06/09/2022 1:30 P M REGIONAL TRUCK DRIVER Danita Gonzalez * BP Location Answer Date of Assessment Author Left arm 04/28/2023 4:12 PM REGIONAL TRUCK DRIVER Dary Garcia LPN * Question Answer Date of Assessment Author Skin Care Skin cleanser 06/01/2022 9:00 PM REGIONAL TRUCK DRIVER Azra Stanton, [place] Hygiene Gown Changed 06/06/2022 8:00 AM REGIONAL TRUCK DRIVER Maggy Molina RN Oral Care Teeth brushed 06/08/2022 8:26 AM REGIONAL TRUCK DRIVER Noreen Booth RN Hygiene Level of Assistance Moderate assist 06/10/2022 9:00 AM REGIONAL TRUCK DRIVER Franny Garcia RN Toileting: Level of assistance Modified independent;Stand by 06/10/2022 9:00 AM REGIONAL TRUCK DRIVER Franny Garcia RN Reason not bathed/showered Patient/family refused bath/shower 06/04/2022 9:13 PM REGIONAL TRUCK DRIVER Maggy Crystal RN Perineal Care Dara Care 06/08/2022 8:26 AM REGIONAL TRUCK DRIVER Noreen Booth RN Linens Complete linen change 06/06/2022 8:00 AM REGIONAL TRUCK DRIVER Maggy Molina RN Bath Bathed/showered with chlorhexidine (CHG) 06/06/2022 8:00 AM REGIONAL TRUCK DRIVER Maggy Molina, [place] * PT Evaluation Needed Answer Date of Assessment Author 1 05/27/2022 9:37 PM REGIONAL TRUCK DRIVER Rosie Salamanca, [place] * Therapy Consults Question Answer Date of Assessment Author OT Evaluation Needed 1 05/16/2022 6:00 AM Lizeth Charles RN LOG COOKER Evaluation Needed 2 05/16/2022 6:00 AM Lizeth Orozco RN * Question Answer Date of Assessment Author Feeding Level of Assistance Able to feed self 06/10/2022 9:00 AM Franny Barrett RN Appetite Good 06/09/2022 7:50 AM REGIONAL TRUCK DRIVER Uriel Galdamez RN * Question Answer Date of Assessment Author BP Method Automatic 06/10/2022 12:05 PM REGIONAL TRUCK DRIVER Ti Roman * Question Answer Date of Assessment Author Bed In Lowest Position Yes 06/10/2022 9:00 AM Franny Barrett RN Bed Wheels Locked Yes 06/10/2022 9:00 AM Frnany Barrett RN documented as of this encounter [...] Comments XR TRANSFER OF OUTSIDE FILMS Routine 03/07/2019 12:00 AM REGIONAL TRUCK DRIVER documented in this encounter Results * XR Outside Reference (03/07/2019 12:00 AM REGIONAL TRUCK DRIVER) Impressions RAD_PACS_[facility] - 04/08/2022 8:33 AM REGIONAL TRUCK DRIVER These images are for Reference purposes only and have not been reviewed by [facility] Radiology. There will be no report generated by a [facility] Radiologist. Narrative RAD_PACS_[facility] - 04/08/2022 8:33 AM REGIONAL TRUCK DRIVER EXAMINATION: Images For Reference Purposes Only us [...] documented as of this encounter Care Teams Tub Tender Relationship Specialty Start Date End Date Michael Duncan MD PCP - General 01/26/19 04/02/22 documented as of this encounter
--- OUTSIDE RECORDS SUMMARY | 2019-03-30 | XMS_ITS | Encounter Summary ---
Author Organization [facility] Healthcare Address [address] [place] [address] Care Team Providers Care Resident Care Manager Rn Name Role Phone Michael Duncan MD Primary Care Provider Encounter Details Date Type Department Care Team (Late st Contact Info) Description 03/30/2019 [place] [address] Social History Tobacco Use Types Packs/Day Years [...] on file Legal Sex Female 7:23 PM PHP MAGENTO DEVELOPER Gender Identity Not on file Sexual Orientation [...] Assessment Author Left arm 04/28/2023 4:12 PM PHP MAGENTO DEVELOPER Dary Garcia LPN * Minh QD Scale [...] Level 3 - Yellow 06/10/2022 9:00 AM PHP MAGENTO DEVELOPER [place], Franny Kayleen, RN Level 3 Equipment [...] Author No risk level 05/27/2022 9:37 PM PHP MAGENTO DEVELOPER Rosie Salamanca, RN * Alcohol Withdrawal BP Hierarchy Answer Date of Assessment Author 65 02/10/2023 11:18 AM CDT Charla Hernandez CMA * Pressure Injury Prevention Question Answer Date of Assessment Author Pressure Ulcer Prevention Interventions Keep skin clean and dry (Sensory Perception/Moistur e) 06/10/2022 9:00 AM PHP MAGENTO DEVELOPER Franny Garcia, RN * AUDIT-C Score Answer [...] Answer Date of Assessment Author Skin Color Pale;[place] 06/07/2022 9:30 AM Noreen Petit, [place] Skin Condition/Temp Warm 06/07/2022 9:30 AM Noreen Cardenas, [place] Skin Integrity Other (Comment) 06/08/2022 8:56 AM Noreen Ceballos, [place] Skin Turgor Non-tenting 06/06/2022 8:30 AM Maggy Paul RN Integumentary Additional Assessments Yes-Minh QD 06/06/2022 8:30 AM Maggy Paul RN Integumentary (WDL) WDL 02/09/2023 3:30 PM Nena Bermudez RN Skin Location generalized 06/08/2022 8:27 PM PHP MAGENTO DEVELOPER Maggy Isidro RN * Minh Scale Question Answer Date of Assessment Author Minh Scale Used Minh QD 05/27/2022 9:37 PM PHP MAGENTO DEVELOPER Carolina Salamanca RN * Question Answer Date of Assessment Author LLE Edema No pitting 06/08/2022 8:27 PM Maggy Paul RN Edema Left lower extremity 06/08/2022 8:[address] Maggy Molina RN * Question Answer Date of Assessment Author Percent Meal Eaten (%) 100 06/10/2022 12:05 P M PHP MAGENTO DEVELOPER Ti aJy Percent Snack Eaten (%) 0 06/09/2022 1:30 P M PHP MAGENTO DEVELOPER Danita Gonzalez * BP Location Answer Date of Assessment Author Left arm 04/28/2023 4:12 PM PHP MAGENTO DEVELOPER Dary Garcia LPN * Question Answer Date of Assessment Author Skin Care Skin cleanser 06/01/2022 9:00 PM PHP MAGENTO DEVELOPER Azra Stanton, [place] Hygiene Gown Changed 06/06/2022 8:00 AM PHP MAGENTO DEVELOPER Maggy Molina RN Oral Care Teeth brushed 06/08/2022 8:26 AM PHP MAGENTO DEVELOPER Noreen Booth RN Hygiene Level of Assistance Moderate assist 06/10/2022 9:00 AM PHP MAGENTO DEVELOPER Franny Garcia RN Toileting: Level of assistance Modified independent;Stand by 06/10/2022 9:00 AM PHP MAGENTO DEVELOPER Franny Garcia RN Reason not bathed/showered Patient/family refused bath/shower 06/04/2022 9:13 PM PHP MAGENTO DEVELOPER Maggy Crystal RN Perineal Care Dara Care 06/08/2022 8:26 AM PHP MAGENTO DEVELOPER Noreen Booth RN Linens Complete linen change 06/06/2022 8:00 AM PHP MAGENTO DEVELOPER Maggy Molina RN Bath Bathed/showered with chlorhexidine (CHG) 06/06/2022 8:00 AM PHP MAGENTO DEVELOPER Maggy Molina, [place] * PT Evaluation Needed Answer Date of Assessment Author 1 05/27/2022 9:37 PM PHP MAGENTO DEVELOPER Rosie Salamanca, [place] * Therapy Consults Question Answer Date of Assessment Author OT Evaluation Needed 1 05/16/2022 6:00 AM Lizeth Charles RN SUBSURFACE AUGMENTEE OPERATOR Evaluation Needed 2 05/16/2022 6:00 AM Lizeth Orozco RN * Question Answer Date of Assessment Author Feeding Level of Assistance Able to feed self 06/10/2022 9:00 AM Franny Barrett RN Appetite Good 06/09/2022 7:50 AM PHP MAGENTO DEVELOPER Uriel Galdamez RN * Question Answer Date of Assessment Author BP Method Automatic 06/10/2022 12:05 PM PHP MAGENTO DEVELOPER Ti Roman * Question Answer Date of [...] Comments XR TRANSFER OF OUTSIDE FILMS Routine 03/30/2019 12:00 AM PHP MAGENTO DEVELOPER documented in this encounter Results * XR Outside Reference (03/30/2019 12:00 AM PHP MAGENTO DEVELOPER) Impressions RAD[facility] - 04/08/2022 8:41 AM PHP MAGENTO DEVELOPER These images are for Reference purposes only and have not been reviewed by [facility] Radiology. There will be no report generated by a [facility] Radiologist. Narrative RAD_PACS[facility] - 04/08/2022 8:41 AM PHP MAGENTO DEVELOPER EXAMINATION: Images For Reference Purposes Only us [...] documented as of this encounter Care Teams Resident Care Manager Rn Relationship Specialty Start Date End Date Michael Duncan MD PCP - General 01/26/19 04/02/22 documented as of this encounter
--- OUTSIDE RECORDS SUMMARY | 2019-03-30 00:05 | XMS_ITS | Encounter Summary ---
Author Organization [facility] Healthcare Address [address] [place] [address] Care Team Providers Care Sql Server Consultant Name Role Phone Michael Duncan MD Primary Care Provider Encounter Details Date Type Department Care Team (Late st Contact Info) Description 03/30/2019 12:05 AM COSMETICS COUNTER MANAGER [place] [address] Social History Tobacco Use Types Packs/Day Years [...] on file Legal Sex Female 7:23 PM COSMETICS COUNTER MANAGER Gender Identity Not on file Sexual Orientation [...] Assessment Author Left arm 04/28/2023 4:12 PM COSMETICS COUNTER MANAGER Dary Garcia LPN * Minh QD Scale [...] Cognitive Impairment 1 06/10/2022 9:00 AM C Franny Hays RN Environmental Factors 3 06/10/2022 9:00 AM [...] Author No risk level 05/27/2022 9:37 PM COSMETICS COUNTER MANAGER Rosie Salamanca, RN * Alcohol Withdrawal BP Hierarchy Answer Date of Assessment Author 65 02/10/2023 11:18 AM CDT Charla Hernandez CMA * Pressure Injury Prevention Question Answer Date of Assessment Author Pressure Ulcer Prevention Interventions Keep skin clean and dry (Sensory Perception/Moistur e) 06/10/2022 9:00 AM COSMETICS COUNTER MANAGER Franny Garcia, RN * AUDIT-C Score Answer [...] one occasion? Never 12/10/2022 7:40 PM Nadja Moreau, [place] * Integumentary Question Answer Date of Assessment Author Integumentary (WDL) X 05/15/2022 11:06 PM Maggy Veronica, [place] * Integumentary Question Answer Date of Assessment Author Skin Color Pale;[place] 06/07/2022 9:30 AM Noreen Petit, [place] Skin Condition/Temp Warm 06/07/2022 9:30 AM Noreen Cardenas, [place] Skin Integrity Other (Comment) 06/08/2022 8:56 AM Noreen Ceballos, [place] Skin Turgor Non-tenting 06/06/2022 8:30 AM COSMETICS COUNTER MANAGER Maggy Molina RN Integumentary Additional Assessments Yes-Minh QD 06/06/2022 8:30 AM Maggy Paul RN Integumentary (WDL) WDL 02/09/2023 3:30 PM Nena Bermudez RN Skin Location generalized 06/08/2022 8:27 PM COSMETICS COUNTER MANAGER Maggy Isidro RN * Minh Scale Question Answer Date of Assessment Author Minh Scale Used Minh QD 05/27/2022 9:37 PM COSMETICS COUNTER MANAGER Carolina Salamanca, [place] * Question Answer Date of Assessment Author LLE Edema No pitting 06/08/2022 8:27 PM Maggy Paul RN Edema Left lower extremity 06/08/2022 8:[address] Maggy Molina, [place] * Question Answer Date of Assessment Author Percent Meal Eaten (%) 100 06/10/2022 12:05 P M COSMETICS COUNTER MANAGER Ti Jay Percent Snack Eaten (%) 0 06/09/2022 1:30 P M COSMETICS COUNTER MANAGER Danita Gonzalez * BP Location Answer Date of Assessment Author Left arm 04/28/2023 4:12 PM COSMETICS COUNTER MANAGER Dary Garcia LPN * Question Answer Date of Assessment Author Skin Care Skin cleanser 06/01/2022 9:00 PM COSMETICS COUNTER MANAGER Azra Stanton, [place] Hygiene Gown Changed 06/06/2022 8:00 AM COSMETICS COUNTER MANAGER Maggy Molina RN Oral Care Teeth brushed 06/08/2022 8:26 AM COSMETICS COUNTER MANAGER Noreen Booth, [place] Hygiene Level of Assistance Moderate assist 06/10/2022 9:00 AM COSMETICS COUNTER MANAGER Franny Garcia RN Toileting: Level of assistance Modified independent;Stand by 06/10/2022 9:00 AM COSMETICS COUNTER MANAGER Franny Garcia RN Reason not bathed/showered Patient/family refused bath/shower 06/04/2022 9:13 PM COSMETICS COUNTER MANAGER Maggy Crystal RN Perineal Care Dara Care 06/08/2022 8:26 AM COSMETICS COUNTER MANAGER Noreen Booth RN Linens Complete linen change 06/06/2022 8:00 AM COSMETICS COUNTER MANAGER Maggy Molina RN Bath Bathed/showered with chlorhexidine (CHG) 06/06/2022 8:00 AM COSMETICS COUNTER MANAGER Maggy Molina, [place] * PT Evaluation Needed Answer Date of Assessment Author 1 05/27/2022 9:37 PM COSMETICS COUNTER MANAGER Rosie Salamanca RN * Therapy Consults Question Answer Date of Assessment Author OT Evaluation Needed 1 05/16/2022 6:00 AM Lizeth Charles RN CHILD CARE SITTER Evaluation Needed 2 05/16/2022 6:00 AM Lizeth Orozco RN * Question Answer Date of Assessment Author Feeding Level of Assistance Able to feed self 06/10/2022 9:00 AM COSMETICS COUNTER MANAGER Franny Garcia RN Appetite Good 06/09/2022 7:50 AM COSMETICS COUNTER MANAGER Uriel Galdamez RN * Question Answer Date of Assessment Author BP Method Automatic 06/10/2022 12:05 PM COSMETICS COUNTER MANAGER Ti Roman * Question Answer Date of [...] XR TRANSFER OF OUTSIDE FILMS Routine 03/30/2019 12:05 AM COSMETICS COUNTER MANAGER documented in this encounter Results * XR Outside Reference (03/30/2019 12:05 AM COSMETICS COUNTER MANAGER) Impressions RAD_PACS_[facility] - 04/08/2022 8:41 AM COSMETICS COUNTER MANAGER These images are for Reference purposes only and have not been reviewed by [facility] Radiology. There will be no report generated by a [facility] Radiologist. Narrative RAD_PACS_[facility] - 04/08/2022 8:41 AM COSMETICS COUNTER MANAGER EXAMINATION: Images For Reference Purposes Only us [...] COVID infection. 12/20/2022 12/22/2022 03/20/2023 3:05 AM Fawad JOE documented as of this encounter Care Teams Sql Server Consultant Relationship Specialty Start Date End Date Michael Duncan MD PCP - General 01/26/19 04/02/22 documented as of this encounter
--- OUTSIDE RECORDS SUMMARY | 2019-04-14 | XMS_ITS | Encounter Summary ---
Author Organization [facility] Healthcare Address [address] [place] [address] Care Team Providers Care Dairy Frozen Manager Name Role Phone Michael Duncan MD Primary Care Provider [phone] Encounter Details Date Type Department Care Team (Late st Contact Info) Description 04/14/2019 [place] [address] Social History Tobacco Use Types Packs/Day Years [...] on file Legal Sex Female 7:23 PM BOX TURNER Gender Identity Not on file Sexual Orientation [...] Assessment Author Left arm 04/28/2023 4:12 PM BOX TURNER Dary Garcia LPN * Minh QD Scale [...] Level 3 - Yellow 06/10/2022 9:00 AM BOX TURNER Fujawa, Franny Kayleen, RN Level 3 Equipment [...] Author No risk level 05/27/2022 9:37 PM BOX TURNER Rosie Salamanca, RN * Alcohol Withdrawal BP Hierarchy Answer Date of Assessment Author 65 02/10/2023 11:18 AM CDT Charla Hernandez CMA * Pressure Injury Prevention Question Answer Date of Assessment Author Pressure Ulcer Prevention Interventions Keep skin clean and dry (Sensory Perception/Moistur e) 06/10/2022 9:00 AM BOX TURNER Franny Garcia, RN * AUDIT-C Score Answer [...] Answer Date of Assessment Author Skin Color Pale;[place] 06/07/2022 9:30 AM Noreen Petit, [place] Skin Condition/Temp Warm 06/07/2022 9:30 AM Noreen Cardenas, [place] Skin Integrity Other (Comment) 06/08/2022 8:56 AM Noreen Ceballos, [place] Skin Turgor Non-tenting 06/06/2022 8:30 AM Maggy Paul RN Integumentary Additional Assessments Yes-Minh QD 06/06/2022 8:30 AM Maggy Paul RN Integumentary (WDL) WDL 02/09/2023 3:30 PM Nena Bermudez RN Skin Location generalized 06/08/2022 8:27 PM BOX TURNER Maggy Isidro RN * Minh Scale Question Answer Date of Assessment Author Minh Scale Used Minh QD 05/27/2022 9:37 PM BOX TURNER Carolina Salamanca RN * Question Answer Date of Assessment Author LLE Edema No pitting 06/08/2022 8:27 PM Maggy Paul RN Edema Left lower extremity 06/08/2022 8:[address] Maggy Molina RN * Question Answer Date of Assessment Author Percent Meal Eaten (%) 100 06/10/2022 12:05 P M BOX TURNER Ti Jay Percent Snack Eaten (%) 0 06/09/2022 1:30 P M BOX TURNER Danita Gonzalez * BP Location Answer Date of Assessment Author Left arm 04/28/2023 4:12 PM BOX TURNER Dary Garcia LPN * Question Answer Date of Assessment Author Skin Care Skin cleanser 06/01/2022 9:00 PM BOX TURNER Azra Stanton, [place] Hygiene Gown Changed 06/06/2022 8:00 AM BOX TURNER Maggy Molina RN Oral Care Teeth brushed 06/08/2022 8:26 AM BOX TURNER Noreen Booth RN Hygiene Level of Assistance Moderate assist 06/10/2022 9:00 AM BOX TURNER Franny Garcia RN Toileting: Level of assistance Modified independent;Stand by 06/10/2022 9:00 AM BOX TURNER Franny Garcia RN Reason not bathed/showered Patient/family refused bath/shower 06/04/2022 9:13 PM BOX TURNER Maggy Crystal RN Perineal Care Dara Care 06/08/2022 8:26 AM BOX TURNER Noreen Booth RN Linens Complete linen change 06/06/2022 8:00 AM BOX TURNER Maggy Molina RN Bath Bathed/showered with chlorhexidine (CHG) 06/06/2022 8:00 AM BOX TURNER Maggy Molina, [place] * PT Evaluation Needed Answer Date of Assessment Author 1 05/27/2022 9:37 PM BOX TURNER Rosie Salamanca, [place] * Therapy Consults Question Answer Date of Assessment Author OT Evaluation Needed 1 05/16/2022 6:00 AM Lizeth Charles RN TRANSFORMATION ARCHITECT Evaluation Needed 2 05/16/2022 6:00 AM Lizeth Orozco RN * Question Answer Date of Assessment Author Feeding Level of Assistance Able to feed self 06/10/2022 9:00 AM Franny Barrett RN Appetite Good 06/09/2022 7:50 AM BOX TURNER Uriel Galdamez RN * Question Answer Date of Assessment Author BP Method Automatic 06/10/2022 12:05 PM BOX TURNER Ti Roman * Question Answer Date of [...] Comments XR TRANSFER OF OUTSIDE FILMS Routine 04/14/2019 12:00 AM BOX TURNER documented in this encounter Results * XR Outside Reference (04/14/2019 12:00 AM BOX TURNER) Impressions RAD_[facility]ACS_[facility] - 04/08/2022 8:42 AM BOX TURNER These images are for Reference purposes only and have not been reviewed by [facility] Radiology. There will be no report generated by a [facility] Radiologist. Narrative RAD_[facility]ACS_[facility] - 04/08/2022 8:42 AM BOX TURNER EXAMINATION: Images For Reference Purposes Only us [...] documented as of this encounter Care Teams Dairy Frozen Manager Relationship Specialty Start Date End Date Michael Duncan MD PCP - General 01/26/19 04/02/22 documented as of this encounter
--- OUTSIDE RECORDS SUMMARY | 2019-04-14 00:05 | XMS_ITS | Encounter Summary ---
Author Organization [facility] Healthcare Address [address] [place] [address] Care Team Providers Care Sheet Rock Taper Name Role Phone Michael Duncan MD Primary Care Provider Encounter Details Date Type Department Care Team (Late st Contact Info) Description 04/14/2019 12:05 AM COMPLIANCE ADVIS[place] [address] Social History Tobacco Use Types Packs/Day Years [...] on file Legal Sex Female 7:23 PM COMPLIANCE ADVISOR Gender Identity Not on file Sexual Orientation [...] Assessment Author Left arm 04/28/2023 4:12 PM COMPLIANCE ADVISOR Dary Garcia LPN * Minh QD Scale [...] Author No risk level 05/27/2022 9:37 PM COMPLIANCE ADVISOR Rosie Salamanca, RN * Alcohol Withdrawal BP Hierarchy Answer Date of Assessment Author 65 02/10/2023 11:18 AM CDT Charla Hernandez CMA * Pressure Injury Prevention Question Answer Date of Assessment Author Pressure Ulcer Prevention Interventions Keep skin clean and dry (Sensory Perception/Moistur e) 06/10/2022 9:00 AM COMPLIANCE ADVISOR Franny Garcia, RN * AUDIT-C Score Answer [...] Answer Date of Assessment Author Skin Color Pale;[place] 06/07/2022 9:30 AM Noreen Petit, [place] Skin Condition/Temp Warm 06/07/2022 9:30 AM Noreen Cardenas, [place] Skin Integrity Other (Comment) 06/08/2022 8:56 AM Noreen Ceballos, [place] Skin Turgor Non-tenting 06/06/2022 8:30 AM COMPLIANCE ADVISOR Maggy Molina RN Integumentary Additional Assessments Yes-Minh QD 06/06/2022 8:30 AM Maggy Paul RN Integumentary (WDL) WDL 02/09/2023 3:30 PM Nena Bermudez RN Skin Location generalized 06/08/2022 8:27 PM COMPLIANCE ADVISOR Maggy Isidro RN * Minh Scale Question Answer Date of Assessment Author Minh Scale Used Minh QD 05/27/2022 9:37 PM COMPLIANCE ADVISOR Carolina Salamanca, [place] * Question Answer Date of Assessment Author LLE Edema No pitting 06/08/2022 8:27 PM Maggy Paul RN Edema Left lower extremity 06/08/2022 8:[address] Maggy Molina, [place] * Question Answer Date of Assessment Author Percent Meal Eaten (%) 100 06/10/2022 12:05 P M COMPLIANCE ADVISOR Ti Jay Percent Snack Eaten (%) 0 06/09/2022 1:30 P M COMPLIANCE ADVISOR Danita Gonzalez * BP Location Answer Date of Assessment Author Left arm 04/28/2023 4:12 PM COMPLIANCE ADVISOR Dary Garcia LPN * Question Answer Date of Assessment Author Skin Care Skin cleanser 06/01/2022 9:00 PM COMPLIANCE ADVISOR Azra Stanton, [place] Hygiene Gown Changed 06/06/2022 8:00 AM COMPLIANCE ADVISOR Maggy Molina RN Oral Care Teeth brushed 06/08/2022 8:26 AM COMPLIANCE ADVISOR Noreen Booth, [place] Hygiene Level of Assistance Moderate assist 06/10/2022 9:00 AM COMPLIANCE ADVISOR Franny Garcia RN Toileting: Level of assistance Modified independent;Stand by 06/10/2022 9:00 AM COMPLIANCE ADVISOR Franny Garcia RN Reason not bathed/showered Patient/family refused bath/shower 06/04/2022 9:13 PM COMPLIANCE ADVISOR Maggy Crystal RN Perineal Care Dara Care 06/08/2022 8:26 AM COMPLIANCE ADVISOR Noreen Booth RN Linens Complete linen change 06/06/2022 8:00 AM COMPLIANCE ADVISOR Maggy Molina RN Bath Bathed/showered with chlorhexidine (CHG) 06/06/2022 8:00 AM COMPLIANCE ADVISOR Maggy Molina, [place] * PT Evaluation Needed Answer Date of Assessment Author 1 05/27/2022 9:37 PM COMPLIANCE ADVISOR Rosie Salamanca RN * Therapy Consults Question Answer Date of Assessment Author OT Evaluation Needed 1 05/16/2022 6:00 AM Lizeth Charles RN NEWSSTAND VENDOR Evaluation Needed 2 05/16/2022 6:00 AM Lizeth Orozco RN * Question Answer Date of Assessment Author Feeding Level of Assistance Able to feed self 06/10/2022 9:00 AM COMPLIANCE ADVISOR Franny Garcia RN Appetite Good 06/09/2022 7:50 AM COMPLIANCE ADVISOR Uriel Galdamez RN * Question Answer Date of Assessment Author BP Method Automatic 06/10/2022 12:05 PM COMPLIANCE ADVISOR Ti Roman * Question Answer Date of [...] XR TRANSFER OF OUTSIDE FILMS Routine 04/14/2019 12:05 AM COMPLIANCE ADVISOR documented in this encounter Results * XR Outside Reference (04/14/2019 12:05 AM COMPLIANCE ADVISOR) Impressions RAD_[facility]ACS[facility] - 04/08/2022 8:42 AM COMPLIANCE ADVISOR These images are for Reference purposes only and have not been reviewed by [facility] Radiology. There will be no report generated by a [facility] Radiologist. Narrative RAD_PACS_[facility] - 04/08/2022 8:42 AM COMPLIANCE ADVISOR EXAMINATION: Images For Reference Purposes Only us [...] documented as of this encounter Care Teams Sheet Rock Taper Relationship Specialty Start Date End Date Michael Duncan MD PCP - General 01/26/19 04/02/22 documented as of this encounter
--- OUTSIDE RECORDS SUMMARY | 2025-04-02 14:24 | XMS_ITS | Clinical Summary ---
Author Organization [facility] Address [address] [place] [address] Care Team Providers Care Package Designer Name Role Phone Michael Duncan MD Primary Care Provider [phone] Allergies No known active allergies Medications cyclobenzaprine 5 MG tabletIndications :muscle spasms Take 5 mg by mouth 2 (two) times daily as needed. Indications: muscle spasms 04/28/19 Active docusate sodium 100 MG capsuleIndication s:stool softner Take 100 mg by mouth daily as needed. Indications: stool softner 04/28/19 Active baclofen 10 MG tabletIndications :for muscles Take 10 mg by mouth 2 (two) times daily. Indications: for muscles 04/28/19 Active cetirizine 10 MG tabletIndications :allergies Take 10 mg by mouth daily. Indications: allergies 04/28/19 Active famotidine 20 MG tabletIndications :reflux Take 20 mg by mouth daily. Indications: reflux 04/28/19 Active fluoxetine 10 MG capsuleIndication s:mood Take 10 mg by mouth daily. Indications: mood 04/28/19 Active lidocaine 4 % creamIndications: for port access Apply 1 Tube topically as needed. Indications: for port access 04/28/19 Active lorazepam 1 MG tabletIndications :for anxiety or insomnia Take 1 mg by mouth every 8 (eight) hours as needed. Indications: for anxiety or insomnia 04/28/19 Active morphine 15 MG tabletIndications :pain Take 15 mg by mouth every 6 (six) hours as needed. Indications: pain 04/28/19 Active ondansetron 4 MG tabletIndications :for nausea/vomiting Take 4 mg by mouth every 8 (eight) hours as needed. allow tablet to dissolve on the tongue Indications: for nausea/vomiting 04/28/19 Active oxybutynin 5 MG tabletIndications :bladder Take 5 mg by mouth 3 (three) times daily. Indications: bladder 04/28/19 Active polyethylene glycol powderIndications :constipation Take 17 g by mouth daily as needed. Indications: constipation 04/28/19 Active pregabalin 100 MG capsuleIndication s:for nerve and muscle pain Take 100 mg by mouth 3 (three) times daily. Indications: for nerve and muscle pain 04/28/19 Active scopolamine 1 MG/3DAYS patchIndications: nausea/vomiting Place 1 patch onto the skin every third day. Indications: nausea/vomiting 04/28/19 Active Sennosides 17.2 MG TabIndications:co nstipation Take 17.2 mg by mouth daily as needed. Indications: constipation 04/28/19 Active traMADol 50 MG tabletIndications :pain Take 50 mg by mouth every 6 (six) hours as needed. Indications: pain 04/28/19 Active acetaminophen 500 MG tabletIndications :pain Take 500 mg by mouth every 6 (six) hours as needed. Maximum allowed in 24 hours is 4000 mg. Indications: pain 04/28/19 Active ceFAZolin 2 gm/20 mL Solution Prefilled SyringeIndication s:infection Inject 2 g into the vein every 8 (eight) hours. Indications: infection 04/28/19 Active heparin lock flush 10 UNIT/ML injectionIndicati ons:daily or as needed after antibiotic therapy Inject 5 mLs into the vein every 8 (eight) hours as needed. Indications: daily or as needed after antibiotic therapy 04/28/19 Active heparin flush (HEPARIN LOCK FLUSH) 100 unit/mL SolutionIndicatio ns:for deaccess, and for weekly needle changes. Inject 500 Units into the vein as needed. Indications: for deaccess, and for weekly needle changes. 04/28/19 Active normal saline 0.9 % injectionIndicati ons:to use before and after administering antibiotics Inject 3-10 mLs into the vein every 8 (eight) hours. 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 SERVICES TECHNICIAN Pulse 72 05/24/2019 2:15 PM FINANCIAL SERVICES TECHNICIAN Temperature 36.8 C (98.3 F) 05/24/2019 2:15 PM FINANCIAL SERVICES TECHNICIAN Respiratory Rate 18 05/24/2019 2:15 PM FINANCIAL SERVICES TECHNICIAN Oxygen Saturation 98% 05/24/2019 2:15 PM FINANCIAL SERVICES TECHNICIAN Inhaled Oxygen Concentration - - Weight - - Height 149.9 cm (4' 11) 04/28/2019 2:00 PM FINANCIAL SERVICES TECHNICIAN Body Mass Index - - Plan of Treatment Health Maintenance Due Date Last Done Comments Annual Physical 2008 HPV Vaccines (1 - 3-dose series) 2020 Meningococcal B Vaccine (1 o f 2 - Standard) 2021 Hepatitis C 11/22/2023 DTaP, Tdap and Td Vaccines ( 1 - Tdap) 2024 Hepatitis B Vaccines (1 of 3 - 19+ 3-dose series) 2024 COVID-19 Vaccine (1 - 2024-2 6 season) 2024 Influenza Adult (#1) 2025 01/05/2019 Hepatitis A Vaccines Aged Out No long er eligible based on patient's age to complete this topic Meningococcal Vaccine Aged Out No mariam vickey eligible based on patient's age to complete this topic Pneumococcal Vaccine: Pediat rics (0 to 5 Years) and At-Risk Patients (6 to 49 Years) Aged Out No longer eligi ble based on patient's age to complete this topic RSV Immunizations Under 20 Months Aged Out No longer eligible based on patient's age to complete this topic Insurance [employer] Care Teams Package Designer Relationship Specialty Start Date End Date Michael Duncan MD [address] [place] [id number] PCP - General PEDIATRICS 04/22/19
--- OUTSIDE RECORDS SUMMARY | 2025-04-02 14:24 | XMS_ITS ---
Author Organization [facility] Address [address] [place] [address] Care Team Providers Care Husbandry Technician Name Role Phone Franklyn Gamble MD Primary Care Provider [phone] Brynn Pugh RESIDENT CARE COORDINATOR Unavailable [phone] Active Problems Problem Noted Date Diagnosed Date Other constipation 02/16/2023 Assessment & Plan (02/16/2023 10:16 AM CDT): Evidence of constipation noted as patient has bowel movement only every 3-4 days. She does have associated lower abdominal fullness and cramping. She takes daily colace. She is reluctant to take miralax because it gives her loose stools. We discussed at length that constipation may be playing a large factor in her incontinence. She has seen urology for this and we recommended to follow through with GI follow up to address constipation. In the interim, we discussed adding daily senna to her daily colace. We discussed titrating miralax with the goal of having soft bowel movements daily. 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 Assessment & Plan (05/22/2022 2:12 PM WATER TREATMENT TECHNICIAN): Please see A & P under chronic back pain. Assessment & Plan (05/21/2022 11:04 AM WATER TREATMENT TECHNICIAN): Please see A & P under chronic back pain. Assessment & Plan (05/20/2022 9:53 AM WATER TREATMENT TECHNICIAN): Please see A & P under chronic back pain. Assessment & Plan (05/19/2022 8:18 AM WATER TREATMENT TECHNICIAN): Please see A & P under chronic back pain. Chronic back pain 05/16/2022 Assessment & Plan (02/16/2023 10:13 AM CDT): Continue to follow with pain team and recommendations Assessment & Plan (06/10/2022 9:28 AM WATER TREATMENT TECHNICIAN): Recent admission for worsening of chronic pain. Pain not well controlled since discharge. Now presents with acute on chronic pain. R shoulder pain has been evaluated by PM&R; their exam and ultrasound performed 06/02 showed right for widening of the A-C space, increased intracapsular effusion, hypermobility and displacement of the clavicle relative to the acromion. Ortho was consulted, and an XR of her acromioclavicular joints with and without weights was performed, which showed no evidence of high-grade ligamentous injury. Plan to use kinesio tape for shoulder stabilization and have PT see Britt daily to BID if tolerated. Was started on PRN Valium prior to PT on 06/04, but this is currently being held due to concern for excessive sedation on 06/06. - Continue daily PT - Hold PRN Valium due to c/f excessive sedation 06/06 PM - Pain team following - PM&R following - PT/OT following - Ortho signed off - Scheduled pain medications: Tylenol 500mg q6h, methocarbamol 750mg TID, diclofenac gel QID, methadone 2.5mg nightly - PRN pain medications: morphine 7.5mg q4h PRN - Continue home lyrica 100mg BID, baclofen 02/07/20 - Plan to potentially discharge tomorrow to continue outpatient therapies until [facility] has a bed Assessment & Plan (06/08/2022 12:37 PM WATER TREATMENT TECHNICIAN): Recent admission for worsening of chronic pain. Pain not well controlled since discharge. Now presents with acute on chronic pain. R shoulder pain has been evaluated by PM&R; their exam and ultrasound performed 06/02 showed right for widening of the A-C space, increased intracapsular effusion, hypermobility and displacement of the clavicle relative to the acromion. Ortho was consulted, and an XR of her acromioclavicular joints with and without weights was performed, which showed no evidence of high-grade ligamentous injury. Plan to use kinesio tape for shoulder stabilization and have PT see Britt daily to BID if tolerated. Was started on PRN Valium prior to PT on 06/04, but this is currently being held due to concern for excessive sedation yesterday evening. - Continue daily PT - Hold PRN Valium due to c/f excessive sedation 06/06 PM - Pain team following - PM&R following - PT/OT following - Ortho signed off - Scheduled pain medications: Tylenol 500mg q6h, methocarbamol 750mg TID, diclofenac gel QID, methadone 2.5mg nightly - PRN pain medications: morphine 7.5mg q4h PRN - Continue home lyrica 100mg BID, baclofen 02/07/20 - Plan to potentially discharge tomorrow to continue outpatient therapies until [facility] has a bed Assessment & Plan (06/07/2022 12:15 PM WATER TREATMENT TECHNICIAN): Recent admission for worsening of chronic pain. Pain not well controlled since discharge. Now presents with acute on chronic pain. R shoulder pain has been evaluated by PM&R; their exam and ultrasound performed 06/02 showed right for widening of the A-C space, increased intracapsular effusion, hypermobility and displacement of the clavicle relative to the acromion. Ortho was consulted, and an XR of her acromioclavicular joints with and without weights was performed, which showed no evidence of high-grade ligamentous injury. Plan to use kinesio tape for shoulder stabilization and have PT see Britt daily to BID if tolerated. Was started on PRN Valium prior to PT on 06/04, but this is currently being held due to concern for excessive sedation yesterday evening. - Increase PT frequency to BID if tolerated - Hold PRN Valium due to c/f excessive sedation 06/06 PM - Pain team following - PM&R following - PT/OT following - Ortho signed off - Scheduled pain medications: Tylenol 500mg q6h, methocarbamol 750mg TID, diclofenac gel QID, methadone 2.5mg nightly - PRN pain medications: morphine 7.5mg q4h PRN - Continue home lyrica 100mg BID, baclofen 02/07/20 - Plan to go to [facility] with discharge Assessment & Plan (06/06/2022 7:42 PM WATER TREATMENT TECHNICIAN): Recent admission for worsening of chronic pain. Pain not well controlled since discharge. Now presents with acute on chronic pain. R shoulder pain has been evaluated by PM&R; their exam and ultrasound performed 06/02 showed right for widening of the A-C space, increased intracapsular effusion, hypermobility and displacement of the clavicle relative to the acromion. Ortho was consulted, and an XR of her acromioclavicular joints with and without weights was performed, which showed no evidence of high-grade ligamentous injury. Plan to use kinesio tape for shoulder stabilization and have PT see Britt daily to BID if tolerated. - Valium 5mg PRN prior to PT - Increase PT frequency to BID if tolerated - Pain team following - PM&R following - Ortho signed off - Scheduled pain medications: Tylenol 500mg q6h, methocarbamol 750mg TID, methadone 2.5mg nightly, diclofenac gel QID - PRN pain medications: morphine 7.5mg q4h PRN - Continue home lyrica 100mg BID, baclofen 02/07/20 - Utilize PT/OT/PM&R - Plan to go to [facility] with discharge Assessment & Plan (06/05/2022 10:33 AM WATER TREATMENT TECHNICIAN): Recent admission for worsening of chronic pain. Pain not well controlled since discharge. Now presents with acute on chronic pain. R shoulder pain has been evaluated by PM&R; their exam and ultrasound performed 06/02 showed right for widening of the A-C space, increased intracapsular effusion, hypermobility and displacement of the clavicle relative to the acromion. Ortho was consulted, and an XR of her acromioclavicular joints with and without weights was performed, which showed no evidence of high-grade ligamentous injury. Plan to use kinesio tape for shoulder stabilization and have PT see Britt daily today and tomorrow, with increase to PT BID over the weekend if giving Valium prior to PT continues to improve her ability to participate. - Valium 5mg PRN prior to PT - Daily PT today and tomorrow, increase to BID PT over weekend if improvement in ability to participate with Valium - Pain team following - PM&R following - Ortho signed off - Scheduled pain medications: Tylenol 500mg q6h, methocarbamol 750mg TID, methadone 2.5mg nightly, diclofenac gel QID - PRN pain medications: morphine 7.5mg q4h PRN - Continue home lyrica 100mg BID, baclofen 02/07/20 - Utilize PT/OT/PM&R - Plan to go to [facility] with discharge Assessment & Plan (06/04/2022 8:35 AM WATER TREATMENT TECHNICIAN): Recent admission for worsening of chronic pain. Pain not well controlled since discharge. Now presents with acute on chronic pain. R shoulder pain has been evaluated by PM&R; their exam and ultrasound performed 06/02 showed right for widening of the A-C space, increased intracapsular effusion, hypermobility and displacement of the clavicle relative to the acromion. Ortho was consulted yesterday, and an XR of her acromioclavicular joints with and without weights was performed, which showed no evidence of high-grade ligamentous injury. Will follow up with ortho team today about further recommendations, but there will likely be no surgical intervention. Will also follow up with PM&R regarding the possibility of steroid injections. - F/u ortho and PM&R recommendations - Pain team following - Scheduled pain medications: Tylenol 500mg q6h, methocarbamol 750mg TID, methadone 2.5mg nightly, diclofenac gel QID - PRN pain medications: morphine 7.5mg q4h PRN - Continue home lyrica 100mg BID, baclofen 02/07/20 - Utilize PT/OT/PM&R - Plan to go to [facility] with discharge Assessment & Plan (06/03/2022 10:51 AM WATER TREATMENT TECHNICIAN): Recent admission for worsening of chronic pain. Pain not well controlled since discharge. Now presents with acute on chronic pain. R shoulder pain has been evaluated by PM&R; their exam and ultrasound performed 06/02 showed right for widening of the A-C space, increased intracapsular effusion, hypermobility and displacement of the clavicle relative to the acromion. They recommended consulting ortho, with possibility of steroid injections with PM&R if no plan to intervene surgically from ortho. Given her continued pain, plan to re-engage pain team today. - Consult orthopedic surgery - Pain consult - initially signed off after recommending continuing on scheduled tylenol, toradol, methocarbamol, morphine PRN Q4h; will re-engage team today - Continue home lyrica, baclofen - Utilize PT/OT/PM&R - Plan to go to [facility] with discharge Assessment & Plan (06/02/2022 10:18 AM WATER TREATMENT TECHNICIAN): Recent admission for worsening of chronic pain. Pain not well controlled since discharge. Now presents with acute on chronic pain. Yesterday, she reported R shoulder pain. Shoulder XR was normal. - Discuss shoulder exercises with PT - Pain consult - recommend continuing on scheduled tylenol, toradol, methocarbamol, morphine PRN Q4h. - Continue home lyrica, baclofen - Utilize PT/OT/PM&R - Plan to go to [facility] with discharge Assessment & Plan (06/01/2022 12:56 PM WATER TREATMENT TECHNICIAN): Recent admission for worsening of chronic pain. Pain not well controlled since discharge. Now presents with acute on chronic pain. Today, she endorses R shoulder pain with a slipping/moving sensation. - will obtain R shoulder xray - Pain consult - recommend continuing on scheduled tylenol, toradol, methocarbamol, morphine PRN Q4h. She continues to have 7/10 back pain, therefore will re-engage Pain team. - Continue home lyrica, baclofen - Utilize PT/OT/PM&R - Plan to go to [facility] with discharge Assessment & Plan (05/31/2022 7:29 PM WATER TREATMENT TECHNICIAN): Recent admission for worsening of chronic pain. Pain not well controlled since discharge. Now presents with acute on chronic pain. - Pain consult - recommend continuing on scheduled tylenol, toradol, methocarbamol, morphine PRN Q4h. - Continue home lyrica, baclofen - Utilize PT/OT/PM&R today - Plan to go to [facility] with discharge Assessment & Plan (05/30/2022 11:34 PM WATER TREATMENT TECHNICIAN): Recent admission for worsening of chronic pain. Pain not well controlled since discharge. Now presents with acute on chronic pain. - Pain consult - recommend continuing on scheduled tylenol, toradol, methocarbamol, morphine PRN Q4h. - Continue home lyrica, baclofen - Utilize PT/OT/PM&R today - Plan to go to [facility] with discharge Assessment & Plan (05/29/2022 2:45 PM WATER TREATMENT TECHNICIAN): Recent admission for worsening of chronic pain. Pain not well controlled since discharge. Now presents with acute on chronic pain. - Pain consult - recommend continuing on scheduled tylenol, toradol, methocarbamol, morphine PRN Q4h. - Continue home lyrica, baclofen - Utilize PT/OT/PM&R today - Plan to go to [facility] with discharge Assessment & Plan (05/28/2022 8:08 PM WATER TREATMENT TECHNICIAN): Recent admission for worsening of chronic pain. Pain not well controlled since discharge. Now presents with acute on chronic pain. - Pain consult - IV morphine PRN - PMNR/PT/OT consult with stable MRI Assessment & Plan (05/28/2022 2:12 AM WATER TREATMENT TECHNICIAN): Recent admission for worsening of chronic pain. Pain not well controlled since discharge - hold home PO morphine. 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 Imaging reassuring, no fracture or loosening of hardware visualized. Continues to report pain 4-6/10 in her back and right lower ribs and continues to require PRN morphine. Mother feels pt with best response from morphine and that valium makes anxiety worse. Has now rubbed back (latissimus) and rib area so firmly that has produced bruising. Has noticeable shoulder instability which could result in muscle overcompensating and now producing pain. Adjusting pain regimen per interdisciplinary teams recommendations. Oversedated on baclofen of 20mg TID 05/21/22, therefore lower the dose to 10mg/20mg/20mg on 05/22/22. Functional pain goal: 06/27 Plan: - Pain Team consulted; s/p lidocaine infusion (05/16-05/17) - Ortho, Neuro Onc (RAD ONC reviewing her in conference on 05/22), & NSGY (NSGY reviewing OSH Brain imaging) following - Neuro consult for neuro rehab eval -->not candidate d/t intolerance of 3 hours of therapy/day - PM&R consult - Accepted to [facility] on 05/22, but there is a 2-3 week waitlist; plan to discharge home and admit when bed is available - PT/OT 2x/wk + homework PT/OT and scheduled OOB time when not with therapy - Child life and psychology to work with non-pharm pain management strategies and daily schedule + sleep hygiene - Regular diet; KVO IVFs - Pain: GABRIEL robaxin and ibu; PRN heating packs, tylenol, morphine, lidocaine patch, benadryl (itching) - May skip first line tylenol prn if pain 5-01/27 - Cont home meds: lyrica, zoloft, periactin, pepcid, multivitamin, colace, miralax daily - Home baclofen (^PM dose 05/16; ^afternoon dose 05/20 & maxed out to 20/20/20mg however oversedating, v AM dose 05/22 now at 10mg/20mg/20mg); adjust as needed if remains oversedated back to 01/27/20mg - Hold increasing lyrica to 150mg BID per pain team (will increase if needed outpatient) Assessment & Plan (05/22/2022 2:15 PM WATER TREATMENT TECHNICIAN): Assessment: 16-yo F with history of chronic back pain, 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 Imaging reassuring, no fracture or loosening of hardware visualized. Continues to report pain 4-6/10 in her back and right lower ribs and continues to require PRN morphine. Mother feels pt with best response from morphine and that valium makes anxiety worse. Has now rubbed back (latissimus) and rib area so firmly that has produced bruising. Has noticeable shoulder instability which could result in muscle overcompensating and now producing pain. Adjusting pain regimen per interdisciplinary teams recommendations. Oversedated on baclofen of 20mg TID 05/21/22. Functional pain goal: 06/27 Plan: - Pain Team consulted; s/p lidocaine infusion (05/16-05/17) - Ortho, Neuro Onc (RAD ONC reviewing her in conference on 05/22), & NSGY (NSGY reviewing OSH Brain imaging) following - Neuro consult for neuro rehab eval -->not candidate d/t intolerance of 3 hours of therapy/day, will continue to re-eval - PM&R consult; appreciate recs and will initiate discussions regarding options for other rehab/pain rehab facilities ([facility], [facility], [facility]->Left message with physician referral line on 05/22/22) - PT/OT 2x/wk + homework PT/OT and scheduled OOB time when not with therapy - Child life and psychology to work with non-pharm pain management strategies and daily schedule + sleep hygiene - Regular diet; KVO IVFs - Pain: GABRIEL robaxin and ibu; PRN heating packs, tylenol, morphine, lidocaine patch, benadryl (itching) - May skip first line tylenol prn if pain 5-10/10 - Cont home meds: lyrica, zoloft, periactin, pepcid, multivitamin, colace, miralax daily - Home baclofen (^PM dose 05/16; ^afternoon dose 05/20 & maxed out to 20/20/20mg however oversedating, v AM dose now at 10mg/20mg/20mg); adjust as needed if remains oversedated back to 10/10/20mg - Can increase lyrica to 150mg BID later this week/next week once stable on baclofen (will take several weeks to see effect) Assessment & Plan (05/21/2022 11:05 AM WATER TREATMENT TECHNICIAN): Assessment: 16-year-old with history of chronic back pain, history of 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 Imaging in [place] reassuring, no fracture or loosening of hardware visualized. Pain improved with morphine, benadryl, ibuprofen, diclofenac and lidocaine patch. Admitted for further management. Continue to report pain 4-9/10 in her back and right lower ribs and continues to require PRN morphine. Mother feels pt with best response from morphine and that valium makes anxiety worse. Has now rubbed back (latissimus) and rib area so firmly that has produced bruising. Has noticeable shoulder instability which could result in muscle overcompensating and now producing pain. Functional pain goal: 06/27 Plan: - Pain signed off 05/19; s/p lidocaine infusion (05/16-05/17); consider re-engaging - Ortho, Neuro Onc (RAD ONC reviewing her in conference on 05/22), & NSGY (NSGY reviewing OSH Brain imaging) following - Neuro c/s for neuro rehab eval --> not candidate, will re-eval 05/22 - PM&R consult 05/21 - neuro c/f incr tone to R ankle; appreciate recs - PT/OT 2x/wk + homework PT/OT and scheduled OOB time when not with therapy - Child life and psychology to work with non-pharm pain management strategies and daily schedule + sleep hygiene - Regular diet; KVO IVFs - Pain: GABRIEL robaxin and ibu; PRN heating packs, tylenol, morphine, valium, lidocaine patch, benadryl (itching) - May skip first line tylenol prn if pain 5-10/10 - Home baclofen (^PM dose 05/16; ^day dose 05/20 & maxed out) - Cont home meds: lyrica, zoloft, periactin, pepcid, multivitamin, colace, miralax daily - Can increase lyrica to 150mg BID later this week/next week to give baclofen time to have effect (will take several weeks to see effect) Assessment & Plan (05/20/2022 9:58 AM WATER TREATMENT TECHNICIAN): Assessment: Patient is a 16-year-old with history of chronic back pain, history of 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 Patient has had chronic back pain ever since her surgery. However, it had been improving. Starting on Thursday 05/11, pt reports acute onset worsening pain. She follows with pain management and ortho. Imaging in the [place] reassuring, no fracture or loosening of hardware visualized. Pain improved with morphine, benadryl, ibuprofen, diclofenac and lidocaine patch. Admitted for further management. This morning has pain 5-7/10 in her back and right lower ribs and continues to require PRN tylenol and morphine. Has now rubbed back (latissimus) and rib area so firmly that has produced bruising. Has noticeable shoulder instability which could result in muscle overcompensating and now producing pain. Mother expresses worry for oncologic process and is interested in transferring care to [facility]. Plan: - Pain consult - Ortho consult - regular diet - KVO IVFs - pain meds: lidocaine infusion, tylenol prn, morphine q4 prn. 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 Patient has had chronic back pain ever since her surgery. However, it had been improving. Starting on Thursday 05/11, pt reports acute onset worsening pain. She follows with pain management and ortho. Imaging in the [place] reassuring, no fracture or loosening of hardware visualized. Pain improved with morphine, benadryl, Toradol, diclofenac and lidocaine patch. Admitted for further management. This morning has pain 5/10 in her back. Overnight received morphine PRN x1. 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 Patient has had chronic back pain ever since her surgery. However, it had been improving. Starting on Thursday 05/11, pt reports acute onset worsening pain. She has a difficult time describing it, but does state that is constant, and feels like 1 of her ribs is out of place. She has no fevers or chills. She has no new weakness numbness or tingling. She does have baseline numbness in her left leg to some degree. She follows with pain management for her symptoms, and has established care here with our orthopedic surgeons, though her PSF was performed at an OSH. EU spoke with ortho who agrees to follow inpatient. Imaging in the EU reassuring, no fracture or loosening of hardware visualized. Pain improved with morphine, benadryl, Toradol, diclofenac and lidocaine patch. Admitted for further management. 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 Patient has had chronic back pain ever since her surgery. However, it had been improving. Starting on Thursday 05/11, pt reports acute onset worsening pain. She has a difficult time describing it, but does state that is constant, and feels like 1 of her ribs is out of place. She has no fevers or chills. She has no new weakness numbness or tingling. She does have baseline numbness in her left leg to some degree. She follows with pain management for her symptoms, and has established care here with our orthopedic surgeons, though her PSF was performed at an OSH. EU spoke with ortho who agrees to follow inpatient. Imaging in the EU reassuring, no fracture or loosening of hardware visualized. Pain improved with morphine, benadryl, Toradol, diclofenac and lidocaine patch. Admitted for further management. 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 Patient has had chronic back pain ever since her surgery. However, it had been improving. Starting on Thursday 05/11, pt reports acute onset worsening pain. She has a difficult time describing it, but does state that is constant, and feels like 1 of her ribs is out of place. She has no fevers or chills. She has no new weakness numbness or tingling. She does have baseline numbness in her left leg to some degree. She follows with pain management for her symptoms, and has established care here with our orthopedic surgeons, though her PSF was performed at an OSH. EU spoke with ortho who agrees to follow inpatient. Imaging in the EU reassuring, no fracture or loosening of hardware visualized. Pain improved with morphine, benadryl, Toradol, diclofenac and lidocaine patch. Admitted for further management. MDM: Likely chronic back pain in the setting of spinal fusion and spinal astrocytoma. Given lack of focal pain on palpation, lack of neurologic findings that would be concerning for any kind of spinal cord pathology or injury. The patient's symptoms are not classic for pulmonary embolism, but given her rib pain,should be considered. However, negative PERC, therefore, very unlikely to be pulmonary embolism. Other considerations include metastasis of known astrocytoma or osteomyelitis. Will monitor for new or worsening symptoms. Plan: - Pain consult - Ortho consult - regular diet - mivfs overnight - pain meds: lidocaine patch, sched Toradol q6h, tylenol prn, morphine q4 prn, robaxin prn - Benadryl prn for itching - Continue home meds: lyrica, zoloft, periactin, pepcid, multivitamin - PT/OT Anxiety 05/16/2022 Assessment & Plan (06/09/2022 8:29 AM WATER TREATMENT TECHNICIAN): - continue home zoloft 50mg qAm and 100mg qPM Assessment & Plan (06/08/2022 12:37 PM WATER TREATMENT TECHNICIAN): - continue home zoloft 50mg qAm and 100mg qPM Assessment & Plan (06/07/2022 11:24 AM WATER TREATMENT TECHNICIAN): - continue home zoloft 50mg qAm and 100mg qPM Assessment & Plan (06/06/2022 7:41 PM WATER TREATMENT TECHNICIAN): - continue home zoloft 50mg qAm and 100mg qPM Assessment & Plan (06/05/2022 10:29 AM WATER TREATMENT TECHNICIAN): - continue home zoloft 50mg qAm and 100mg qPM Assessment & Plan (06/04/2022 8:27 AM WATER TREATMENT TECHNICIAN): - continue home zoloft 50mg qAm and 100mg qPM Assessment & Plan (06/03/2022 10:47 AM WATER TREATMENT TECHNICIAN): - continue home zoloft 50mg qAm and 100mg qPM Assessment & Plan (06/02/2022 10:16 AM WATER TREATMENT TECHNICIAN): - continue home zoloft 50mg qAm and 100mg qPM Assessment & Plan (06/01/2022 9:15 AM WATER TREATMENT TECHNICIAN): - continue home zoloft 50mg qAm and 100mg qPM Assessment & Plan (05/31/2022 7:29 PM WATER TREATMENT TECHNICIAN): - continue home zoloft 50mg qAm and 100mg qPM Assessment & Plan (05/30/2022 11:34 PM WATER TREATMENT TECHNICIAN): - continue home zoloft 50mg qAm and 100mg qPM Assessment & Plan (05/29/2022 2:45 PM WATER TREATMENT TECHNICIAN): - continue home zoloft 50mg qAm and 100mg qPM Assessment & Plan (05/28/2022 8:09 PM WATER TREATMENT TECHNICIAN): - continue home zoloft 50mg qAm and 100mg qPM Assessment & Plan (05/28/2022 2:10 AM WATER TREATMENT TECHNICIAN): - continue home zoloft 50mg qAm and 100mg qPM Assessment & Plan (05/23/2022 9:13 AM WATER TREATMENT TECHNICIAN): Assessment: History of OCD and anxiety, previously taking PRN Ativan, now taking Zoloft. Plan: -Continue Sertraline 150mg every day -Psychology consulted Assessment & Plan (05/22/2022 1:59 PM WATER TREATMENT TECHNICIAN): Assessment: History of OCD and anxiety, previously taking PRN Ativan now taking Zoloft. Plan: -Continue Sertraline 150mg every day -Psychology consulted Assessment & Plan (05/21/2022 11:05 AM WATER TREATMENT TECHNICIAN): Assessment: History of OCD and anxiety, previously taking PRN Ativan now taking Zoloft. Plan: -Continue Sertraline 150mg every day -Psychology consulted Assessment & Plan (05/20/2022 9:57 AM WATER TREATMENT TECHNICIAN): Assessment: History of OCD and anxiety, previously taking PRN Ativan now taking Zoloft. Plan: -Continue Sertraline 150 mg every day -Consider psych consult Assessment & Plan (05/19/2022 8:17 AM WATER TREATMENT TECHNICIAN): Assessment: History of OCD and anxiety, previously taking PRN Ativan now taking Zoloft. Plan: -Continue Sertraline 150 mg every day -Consider psych consult Assessment & Plan (05/18/2022 11:13 AM WATER TREATMENT TECHNICIAN): History of OCD and anxiety, previously taking PRN Ativan now taking Zoloft. -Continue Sertraline 150 mg every day -Consider psych consult Assessment & Plan (05/17/2022 4:06 PM WATER TREATMENT TECHNICIAN): History of OCD and anxiety, previously taking PRN Ativan now taking Zoloft. -Continue Sertraline 150 mg every day -Consider psych consult Assessment & Plan (05/16/2022 6:02 AM WATER TREATMENT TECHNICIAN): History of OCD and anxiety, previously taking PRN Ativan now taking Zoloft. -Continue Sertraline 150 mg every day -Consider psych consult Hot flashes 04/02/2022 Fracture of femur 04/02/2022 Overview (04/02/2022): surgery 12/13/18 surgery 12/13/18 Gastroesophageal reflux disease 04/02/2022 Assessment & Plan (06/10/2022 9:28 AM WATER TREATMENT TECHNICIAN): - Continue home famotidine BID Assessment & Plan (06/08/2022 12:24 PM WATER TREATMENT TECHNICIAN): - Continue home famotidine BID Assessment & Plan (06/07/2022 11:26 AM WATER TREATMENT TECHNICIAN): - Continue home famotidine BID Assessment & Plan (06/06/2022 7:42 PM WATER TREATMENT TECHNICIAN): Continue home famotidine BID Assessment & Plan (06/05/2022 10:34 AM WATER TREATMENT TECHNICIAN): Continue home famotidine BID Assessment & Plan (06/04/2022 8:35 AM WATER TREATMENT TECHNICIAN): Continue home famotidine BID Assessment & Plan (06/03/2022 10:51 AM WATER TREATMENT TECHNICIAN): Continue home famotidine BID Assessment & Plan (06/02/2022 10:18 AM WATER TREATMENT TECHNICIAN): Continue home famotidine BID Assessment & Plan (06/01/2022 9:15 AM WATER TREATMENT TECHNICIAN): Continue home famotidine BID Assessment & Plan (05/31/2022 7:29 PM WATER TREATMENT TECHNICIAN): Continue home famotidine BID Assessment & Plan (05/30/2022 11:34 PM WATER TREATMENT TECHNICIAN): Continue home famotidine BID Assessment & Plan (05/29/2022 2:39 PM WATER TREATMENT TECHNICIAN): Continue home famotidine BID Assessment & Plan (05/28/2022 8:07 PM WATER TREATMENT TECHNICIAN): Continue home famotidine BID Assessment & Plan (05/28/2022 2:00 AM WATER TREATMENT TECHNICIAN): Continue home famotidine BID Nausea and vomiting 04/02/2022 Abdominal pain, generalized 10/28/2021 Overview (04/02/2022): Last Assessment & Plan: Assessment: 15 year old female with 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 Patient has been taking Morphine for pain and states that she has not had a normal bowel movement since the procedure. She has laso had abdominal distension. Outpatient use of Colace, Senna, Dulcolax, or dairy has not helped alleviate sxs. Abdominal xray shows a non-obstructive bowel gas pattern. Patient given a fleet enema in the ED and a dose of methyl-naltrexone, but did not have a large bowel movement. Orthopedic surgery evaluated patient in the ED and recommend admission to the heme/on service for further management/evaluation. Differential diagnosis include morphine-induced ileus, post-op ileus, and functional constipation. Mechanical obstruction less likely given nonobstructive bowel gas pattern on abdominal xray. Plan: - Admit to Pediatric Hematology-Oncology -- Dr. Mast FEN/GI: - D5NS + 20 mEq KCL at 90 ml/hr - Clear liquid diet. Advance as tolerated - Anti-emetics per protocol: -Zofran PRN - Bowel regimen: Daily Miralax, Dulcolax, Senna - Strict I/Os - Daily weights - Repeat CMP in am Onc: - No current Chemo/radiation Heme: - Transfusion parameters: - Transfuse pRBCs for Hgb < 7 or < 8 with symptoms. - Transfuse platelets for plt < 10K or < 20K with symptoms - Repeat CBC in am CV/Resp: - Vitals q8hrs - CR monitors and continuous pulse ox - Blood pressure percentile: No height on file for this encounter. - If SBP persistently > 120, check manual BP, assess for pain and consider PRN isradipine - If SBP persistently < 90, check manual BP, assess and consider fluid bolus ID: - If febrile 100.4 x2 or >101 x1, will draw blood cultures q24hrs and start Rocephin - If HD unstable, will add vanc and consider a fluid bolus Endo: - Continue home vitamin D Neuro/Pain: - Motrin 400 mg q6 - Tylenol 650 mg q6 PRN for mild pain - Morphine 4 mg q4 PRN for moderate/severe pain - Flexeril 10 mg q3 PRN and Robaxin 750 mg q8 PRN for muscle - Benadryl PRN for Pruritus Access: Port Labs: CBC and CMP Closed fracture of proximal end of ulna without additional fracture 09/05/2021 Open knee wound, left, sequela 08/20/2021 Right supracondylar humerus fracture, sequela S/P chemotherapy, time since greater than 12 wee ks 11/27/2020 S/P radiation therapy 11/27/2020 Assessment & Plan (02/16/2023 10:10 AM CDT): S/p CSI finishing June of 2020. 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 Assessment & Plan (02/16/2023 9:57 AM CDT): Decreased EF while on Trametinib, last echo was 1 year ago and function had resolved. Given hx of trametinib use will repeat ECHO/EKG. 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 She also has a hx of osteomyelitis. She presented with abdominal pain, nausea, and vomiting found to have elevated amylase and lipase. Presentation consistent with acute pancreatitis, possibly secondary to home chemotherapy vs Zoloft. Abdominal u/s unable to view pancreas but liver, BG without abnormalities and no stones visualized. Labs continue to trend in the right direction and pain improving. Plan: FEN/GI: - Per GI recs, obtained fasting lipid panel which was reassuring. - clear liquid diet- advance to full liquid diet as tolerated - D5 NS at 100 ml/hr - continue senna HEME/ONC: - Will hold oral chemo - Transfusion parameters: - Transfuse pRBCs for Hgb < 7 or with symptoms. - Transfuse platelets for plt < 10K or with bleeding ID: - Fever plan: - If fever 100.4 x 2 or 101 x 1 then obtain bld cx q24 hour and start rocpehin - If fever >101 persistently or HD unstable, consider IVF bolus and vancomycin - Continue cefdaroxil CV/RESP: - Vitals q4h - BRYNN - If SBP persistently > 140, assess for pain and consider PRN isradipine. - If SBP persistently < 90, assess and consider fluid bolus. 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 She also has a hx of osteomyelitis now on Cefadroxil. Now admitted for pain control and operative management of a closed nondisplaced subtrochanteric fracture of the left femur. Plan: FEN/GI: -Regular Diet - Pepcid - Zofran - One bowel movement: bowel regimen continue to Colace BID and Senna PRN. HEME/ONC: - Transfusion parameters: - Transfuse pRBCs for Hgb < 7 or < 8 with symptoms. - Transfuse platelets for plt < 10K or < 20K with symptoms. - Holding her chemotherapy dose: Trametinib ID: - Fever plan: - If febrile T 100.4 x2 or >101 x1, draw blood cx and start Rocephin. - If HD unstable, consider fluid bolus and add vancomycin. - On Cefadroxil for treatment of past Osteomyelitis. Patient was first prescribed osteomyelitis by [facility] healthcare system in May with goal of stopping the medication after 6 weeks. But was decided (08/25/2019 via tele health visit ) to continue the Cefadroxil indefinitely until atleast the next chemotherapy. Chemo is on hold because of upcoming surgery so will discuss further. CV/RESP: - Vitals q4h and q8h overnight - BRYNN DERM: Derm consult for the rash secondary to mekinst. Skin culture was negative. She has new hemorrhagic crusted lesions: Grade 1. Recommended: Mometasone gloves/wet wraps for hand/foot involvement. Rec 500 mg Niacinamide daily Clindamycin lotion on 1/2 face, Hydrocortisone 2.5% on 1/2 face Continue doxycycline Skin culture obtained (from face) Try Elidel or Protopic pending insurance coverage? - If SBP persistently > 140, assess for pain and consider PRN isradipine. - If SBP persistently < 90, assess and consider fluid bolus. Endo: - Vit D level: 46.2 on 10/25 - Calcium, Vitamin D - Riboflavin - Menarche in March 2018, LMP August,. Always irregular, every other month. Neuro/Pain: - Patient complained of pain in L pinky toe and was given Flexeril and tramadol overnight. - Pain medications were updated to avoid non- drowsy medications during day. Morphine 2 mg PRN Q4 during day and Morphine 4 mg Q4 PRN during night, rest same. - Baclofen GABRIEL - Tylenol q4h GABRIEL - Lyrica - Zoloft PT Patient continuing with her physical therapy. MSK: - Pediatric Orthopedics following - Bone scan completed on 11/10: - Will require surgery but family only wants Dr. Ross to operate [unfortunately unavailable this week]. - Plan for procedure on 11/22 - USG Color Doppler (11/13) is negative for any thrombus. - Ortho was consulted about L Hip Pain as complained by patient as well as about L leg swelling. They asked for pain control medications. - Ortho did check her left toe pain. She was able to flex and extend the toe, flexion and extension + at ankle, perfusion +, only small ecchymosis seen on her L heel. X ray was requested by mom and it was normal, negative for fracture. - Consult for footprint, psychology and Child life Access: Port (not accessed); PIV Closed fracture of multiple bones of left lower leg with routine healing 11/10/2019 Overview (05/09/2020): Last Assessment & Plan: ASSESSMENT: pain in the left thigh. PLAN: Discussed exchange nailing of the left femur due to the failure of the device through a distal screw hole and he persistent pain and increased bone formation. follow up after family decision on treatment. Low bone mass 09/20/2019 Overview (04/02/2022): Last Assessment & Plan: Low bone mass (right & left lower extremities), recurrent, left lower extremity fractures, cause uncertain. ? Disuse vs pre-existing regional low bone mass vs idiopathic juvenile osteoporosis vs ?. Her chemotherapy does not appear to be associated with impaired bone mineralization. Spontaneous onset and cycling of menses reassuring and should promote bone mineralization. 1. Physical therapy/weight bearing as previously prescribed 2. Follow up MRI (Sep 21, 2019) - exclude vertebral compression deformities 3. Review prior skeletal radiographs (obtain upper extremity, screening, radiographs - one view each hand) 4. No medical intervention at this time 5. Encourage good dietary calcium intake 6. Return visit in four months. Other chronic pain 02/17/2019 Overview (07/17/2022): Medications Cee has tried include Opioids:methadone, morphine, trazadone Muscle medications: baclofen, robaxin, ativan, flexeril tylenol NSAIDS ibuprofen Neuropathic prozac, lyrica, sertaline Physical functioning includes previous orthopedic interventions which have caused non weight bearing status, She worked with PT at home and at [facility]. She has been recently cared for at [facility], She has had rehab at [facility] numerous rounds most recently 02/09, follows with Barbara at [facility] Mental Health resources include diagnosis of OCD, [facility], --05/11/2020 Telepsychiatry seen, continue Sertraline (zoloft) 150 mg qd, f/u post radiation-->needs follow up [facility] --05/2020 Neuropsych testing as baseline done at [facility], repeat in 3 mo at [facility]. - find out if high-functioning autism is validated on testing. following up with Dr. Pandya several times last 05/09. She has seen Dr. Steen with admissions to [facility] She currently has home counselor on Zoloft rn long term care Opioid Patient: Contract 04/08 UDS 08/08 Neuropathic pain 02/17/2019 Assessment & Plan (06/10/2022 9:28 AM WATER TREATMENT TECHNICIAN): - Continue home lyrica - Continue home baclofen 10mg at 9am, 20mg at 4pm, and 20 mg at 9pm Assessment & Plan (06/08/2022 12:24 PM WATER TREATMENT TECHNICIAN): - Continue home lyrica - Continue home baclofen 10mg at 9am, 20mg at 4pm, and 20 mg at 9pm Assessment & Plan (06/07/2022 11:26 AM WATER TREATMENT TECHNICIAN): - Continue home lyrica - Continue home baclofen 10mg at 9am, 20mg at 4pm, and 20 mg at 9pm Assessment & Plan (06/06/2022 7:42 PM WATER TREATMENT TECHNICIAN): - Continue home lyrica - Continue home baclofen 10mg at 9am, 20mg at 4pm, and 20 mg at 9pm Assessment & Plan (06/05/2022 10:34 AM WATER TREATMENT TECHNICIAN): - Continue home lyrica - Continue home baclofen 10mg at 9am, 20mg at 4pm, and 20 mg at 9pm Assessment & Plan (06/04/2022 8:35 AM WATER TREATMENT TECHNICIAN): - Continue home lyrica - Continue home baclofen 10mg at 9am, 20mg at 4pm, and 20 mg at 9pm Assessment & Plan (06/03/2022 10:51 AM WATER TREATMENT TECHNICIAN): - Continue home lyrica - continue home baclofen 10mg at 9am, 20mg at 4pm, and 20 mg at 9pm Assessment & Plan (06/02/2022 10:18 AM WATER TREATMENT TECHNICIAN): - Continue home lyrica - continue home baclofen 10mg at 9am, 20mg at 4pm, and 20 mg at 9pm Assessment & Plan (06/01/2022 9:15 AM WATER TREATMENT TECHNICIAN): - Continue home lyrica - continue home baclofen 10mg at 9am, 20mg at 4pm, and 20 mg at 9pm Assessment & Plan (05/31/2022 7:29 PM WATER TREATMENT TECHNICIAN): - Continue home lyrica - continue home baclofen 10mg at 9am, 20mg at 4pm, and 20 mg at 9pm Assessment & Plan (05/30/2022 11:33 PM WATER TREATMENT TECHNICIAN): - Continue home lyrica - continue home baclofen 10mg at 9am, 20mg at 4pm, and 20 mg at 9pm Assessment & Plan (05/29/2022 2:39 PM WATER TREATMENT TECHNICIAN): - Continue home lyrica - continue home baclofen 10mg at 9am, 20mg at 4pm, and 20 mg at 9pm Assessment & Plan (05/28/2022 8:07 PM WATER TREATMENT TECHNICIAN): - Continue home lyrica - continue home baclofen 10mg at 9am, 20mg at 4pm, and 20 mg at 9pm Assessment & Plan (05/28/2022 2:10 AM WATER TREATMENT TECHNICIAN): - Continue home lyrica - continue home baclofen 10mg at 9am, 20mg at 4pm, and 20 mg at 9pm 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 Sacral tumor was visible on imaging in January 2019. She was enrolled on Helder protocol and randomized to carboplatin-only arm and she received therapy from October 2018 until April 2019. She was then switched to trametinib in June 2019 which she remained on until until May 2020. She was referred to 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 -MRI Brain/Spine stable today -Repeat MRI Brain/Spine in 6 months Assessment & Plan (06/10/2022 9:28 AM WATER TREATMENT TECHNICIAN): Diagnosed with cervico-thoracic pilocytic astrocytoma BRAF duplicated, s/p tumor debulking in 09/2018. Sacral tumor was visible on imaging in January 2019. She was enrolled on Helder protocol and randomized to carboplatin-only arm and she received therapy from October 2018 until April 2019. She was then switched to trametinib in June 2019 which she remained on until until May 2020. She was referred to 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 Brain MRI and spine on 05/28/2022 stable. - No current chemotherapies Assessment & Plan (06/08/2022 12:24 PM WATER TREATMENT TECHNICIAN): Diagnosed with cervico-thoracic pilocytic astrocytoma BRAF duplicated, s/p tumor debulking in 09/2018. Sacral tumor was visible on imaging in January 2019. She was enrolled on Helder protocol and randomized to carboplatin-only arm and she received therapy from October 2018 until April 2019. She was then switched to trametinib in June 2019 which she remained on until until May 2020. She was referred to 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 Brain MRI and spine on 05/28/2022 stable. - No current chemotherapies Assessment & Plan (06/07/2022 11:26 AM WATER TREATMENT TECHNICIAN): Diagnosed with cervico-thoracic pilocytic astrocytoma BRAF duplicated, s/p tumor debulking in 09/2018. Sacral tumor was visible on imaging in January 2019. She was enrolled on Helder protocol and randomized to carboplatin-only arm and she received therapy from October 2018 until April 2019. She was then switched to trametinib in June 2019 which she remained on until until May 2020. She wasreferred to 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 Brain MRI and spine on 05/28 stable. - No current chemotherapies Assessment & Plan (06/06/2022 7:42 PM WATER TREATMENT TECHNICIAN): Diagnosed with cervico-thoracic pilocytic astrocytoma BRAF duplicated, s/p tumor debulking in 09/2018. Sacral tumor was visible on imaging in January 2019. She was enrolled on Helder protocol and randomized to carboplatin-only arm and she received therapy from October 2018 until April 2019. She was then switched to trametinib in June 2019 which she remained on until until May 2020. She wasreferred to 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 Brain MRI and spine on 05/28 stable. - No current chemotherapies Assessment & Plan (06/05/2022 10:34 AM WATER TREATMENT TECHNICIAN): Diagnosed with cervico-thoracic pilocytic astrocytoma BRAF duplicated, s/p tumor debulking in 09/2018. Sacral tumor was visible on imaging in January 2019. She was enrolled on Helder protocol and randomized to carboplatin-only arm and she received therapy from October 2018 until April 2019. She was then switched to trametinib in June 2019 which she remained on until until May 2020. She wasreferred to 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 Brain MRI and spine on 05/28 stable. - No current chemotherapies Assessment & Plan (06/04/2022 8:35 AM WATER TREATMENT TECHNICIAN): Diagnosed with cervico-thoracic pilocytic astrocytoma BRAF duplicated, s/p tumor debulking in 09/2018. Sacral tumor was visible on imaging in January 2019. She was enrolled on Helder protocol and randomized to carboplatin-only arm and she received therapy from October 2018 until April 2019. She was then switched to trametinib in June 2019 which she remained on until until May 2020. She wasreferred to 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 Brain MRI and spine on 05/28 stable. - No current chemotherapies Assessment & Plan (06/03/2022 10:51 AM WATER TREATMENT TECHNICIAN): Diagnosed with cervico-thoracic pilocytic astrocytoma BRAF duplicated, s/p tumor debulking in 09/2018. Sacral tumor was visible on imaging in January 2019. She was enrolled on Helder protocol and randomized to carboplatin-only arm and she received therapy from October 2018 until April 2019. She was then switched to trametinib in June 2019 which she remained on until until May 2020. She wasreferred to 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 Brain MRI and spine on 05/28 stable. - No current chemotherapies Assessment & Plan (06/02/2022 10:18 AM WATER TREATMENT TECHNICIAN): Diagnosed with cervico-thoracic pilocytic astrocytoma BRAF duplicated, s/p tumor debulking in 09/2018. Sacral tumor was visible on imaging in January 2019. She was enrolled on Helder protocol and randomized to carboplatin-only arm and she received therapy from October 2018 until April 2019. She was then switched to trametinib in June 2019 which she remained on until until May 2020. She wasreferred to 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 Brain MRI and spine on 05/28 stable. - No current chemotherapies Assessment & Plan (06/01/2022 9:15 AM WATER TREATMENT TECHNICIAN): Diagnosed with cervico-thoracic pilocytic astrocytoma BRAF duplicated, s/p tumor debulking in 09/2018. Sacral tumor was visible on imaging in January 2019. She was enrolled on Helder protocol and randomized to carboplatin-only arm and she received therapy from October 2018 until April 2019. She was then switched to trametinib in June 2019 which she remained on until until May 2020. She wasreferred to 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 Brain MRI and spine on 05/28 stable. - No current chemotherapies Assessment & Plan (05/31/2022 7:29 PM WATER TREATMENT TECHNICIAN): Diagnosed with cervico-thoracic pilocytic astrocytoma BRAF duplicated, s/p tumor debulking in 09/2018. Sacral tumor was visible on imaging in January 2019. She was enrolled on Helder protocol and randomized to carboplatin-only arm and she received therapy from October 2018 until April 2019. She was then switched to trametinib in June 2019 which she remained on until until May 2020. She wasreferred to 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 Brain MRI and spine on 05/28 stable. - No current chemotherapies Assessment & Plan (05/30/2022 11:33 PM WATER TREATMENT TECHNICIAN): Diagnosed with cervico-thoracic pilocytic astrocytoma BRAF duplicated, s/p tumor debulking in 09/2018. Sacral tumor was visible on imaging in January 2019. She was enrolled on Helder protocol and randomized to carboplatin-only arm and she received therapy from October 2018 until April 2019. She was then switched to trametinib in June 2019 which she remained on until until May 2020. She wasreferred to 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 Brain MRI and spine on 05/28 stable. - No current chemotherapies Assessment & Plan (05/29/2022 2:38 PM WATER TREATMENT TECHNICIAN): Diagnosed with cervico-thoracic pilocytic astrocytoma BRAF duplicated, s/p tumor debulking in 09/2018. Sacral tumor was visible on imaging in January 2019. She was enrolled on Helder protocol and randomized to carboplatin-only arm and she received therapy from October 2018 until April 2019. She was then switched to trametinib in June 2019 which she remained on until until May 2020. She wasreferred to 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 Brain MRI and spine on 05/28 stable. Assessment & Plan (05/28/2022 8:07 PM WATER TREATMENT TECHNICIAN): Diagnosed with cervico-thoracic pilocytic astrocytoma BRAF duplicated, s/p tumor debulking in 09/2018. Sacral tumor was visible on imaging in January 2019. She was enrolled on Helder protocol and randomized to carboplatin-only arm and she received therapy from October 2018 until April 2019. She was then switched to trametinib in June 2019 which she remained on until until May 2020. She wasreferred to 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 - MRI brain and total spine today Assessment & Plan (05/28/2022 2:05 AM WATER TREATMENT TECHNICIAN): Diagnosed with cervico-thoracic pilocytic astrocytoma BRAF duplicated, s/p tumor debulking in 09/2018. Sacral tumor was visible on imaging in January 2019. She was enrolled on Helder protocol and randomized to carboplatin-only arm and she received therapy from October 2018 until April 2019. She was then switched to trametinib in June 2019 which she remained on until until May 2020. She wasreferred to 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 Given new neurologic symptoms will discuss appropriate imaging timing with neurology and neurosurgery Assessment & Plan (05/10/2020 1:46 PM WATER TREATMENT TECHNICIAN): It would not be unreasonable to consider genetic testing, in the context of an adopted patient with a tumor history and limited family history information. I would like to further discuss collaboratively with Genetics and Oncology colleagues at our monthly meeting next week before offering specific testing. 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 The diagnosis and findings were explained to the patient, questions answered. 2. The patient may leave her incision open to air and bathe normally. 3. Medications: OTC medications - Tylenol or Motrin. Usage discussed 4. Activity Restrictions: Not allowed to participate 5. Follow up: in 6 months. X-Rays - Yes standing PA and lateral views. The appointment will be with Dr. Medley. Assessment & Plan (05/23/2022 9:10 AM WATER TREATMENT TECHNICIAN): Please see A&P under chronic pain. Assessment & Plan (05/22/2022 2:12 PM WATER TREATMENT TECHNICIAN): Please see A&P under chronic pain Assessment & Plan (05/21/2022 11:05 AM WATER TREATMENT TECHNICIAN): Please see A&P under chronic pain Assessment & Plan (05/20/2022 9:53 AM WATER TREATMENT TECHNICIAN): Please see A&P under chronic pain Assessment & Plan (05/19/2022 8:09 AM WATER TREATMENT TECHNICIAN): Please see A&P under chronic pain Assessment & Plan (05/18/2022 11:16 AM WATER TREATMENT TECHNICIAN): Please see A&P under chronic pain Assessment & Plan (05/17/2022 4:09 PM WATER TREATMENT TECHNICIAN): Please see A&P under chronic pain Assessment & Plan (05/16/2022 6:24 AM WATER TREATMENT TECHNICIAN): Please see A&P under chronic pain Pilocytic astrocytoma 11/01/2018 Overview (12/29/2019): presenting at age 9 with radiating R lower back, then R leg pain, scoliosis then incontinence; final path ([facility]) BRAF duplicated 07/07/18 detected on MRI, with drop metastasis noted on reevaluation 09/24/18 tumor debulking 11/10/2018 start chemotherapy ON STUDY Helder protocol IV Carboplatin only Q mo 03/30/19 start tremetinib 1 mg QD 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 Seen by an orthopedic spine surgeon in 2019 for scoliosis. A pilocytic astrocytoma from C5-6 T6-7 was incidentally found. She has since undergone resection/debulking (09/24/16), which was reportedly complicated by right-sided hemiparesis, loss of sensation below the waist, and bladder and bowel incontinence which has since resolved. She also underwent chemotherapy which ended a year and half ago, and radiation therapy to the spine which ended 1 year ago. Her tumor is reportedly stable. Mother is interested in potentially transferring oncology care to [facility]. Plan: -Neuro Oncology consulted Assessment & Plan (05/22/2022 1:59 PM WATER TREATMENT TECHNICIAN): Assessment: History of spinal astrocytoma. Seen by an orthopedic spine surgeon in 2019 for scoliosis. A pilocytic astrocytoma from C5-6 T6-7 was incidentally found. She has since undergone resection/debulking (09/24/16), which was reportedly complicated by right-sided hemiparesis, loss of sensation below the waist, and bladder and bowel incontinence which has since resolved. She also underwent chemotherapy which ended a year and half ago, and radiation therapy to the spine which ended 1 year ago. Her tumor is reportedly stable. Mother interested in potentially transferring oncology care to [facility]. Plan: -Neuro Oncology consulted Assessment & Plan (05/21/2022 10:59 AM WATER TREATMENT TECHNICIAN): Assessment: History of spinal astrocytoma. Seen by an orthopedic spine surgeon in 2019 for scoliosis. A pilocytic astrocytoma from C5-6 T6-7 was incidentally found. She has since undergone resection/debulking (09/24/16), which was reportedly complicated by right-sided hemiparesis, loss of sensation below the waist, and bladder and bowel incontinence which has since resolved. She also underwent chemotherapy which ended a year and half ago, and radiation therapy to the spine which ended 1 year ago. Her tumor is reportedly stable. Mother interested in potentially transferring oncology care to [facility]. Plan: -Neuro Oncology consulted Assessment & Plan (05/20/2022 9:57 AM WATER TREATMENT TECHNICIAN): History of spinal astrocytoma. Seen by an orthopedic spine surgeon in 2019 for scoliosis. A pilocytic astrocytoma from C5-6 T6-7 was incidentally found. She has since undergone resection/debulking (09/24/16), which was reportedly complicated by right-sided hemiparesis, loss of sensation below the waist, and bladder and bowel incontinence which has since resolved. She also underwent chemotherapy which ended a year and half ago, and radiation therapy to the spine which ended 1 year ago. Her tumor is reportedly stable. Mother interested in potentially transferring oncology care to [facility]. Plan: -Oncology consult 05/20 Assessment & Plan (05/19/2022 8:09 AM WATER TREATMENT TECHNICIAN): History of spinal astrocytoma. Seen by an orthopedic spine surgeon in 2019 for scoliosis. A pilocytic astrocytoma from C5-6 T6-7 was incidentally found. She has since undergone resection/debulking (09/24/16), which was reportedly complicated by right-sided hemiparesis, loss of sensation below the waist, and bladder and bowel incontinence which has since resolved. She also underwent chemotherapy which ended a year and half ago, and radiation therapy to the spine which ended 1 year ago. Her tumor is reportedly stable. Assessment & Plan (05/18/2022 11:15 AM WATER TREATMENT TECHNICIAN): History of spinal astrocytoma. Seen by an orthopedic spine surgeon in 2019 for scoliosis. A pilocytic astrocytoma from C5-6 T6-7 was incidentally found. She has since undergone resection/debulking (09/24/16), which was reportedly complicated by right-sided hemiparesis, loss of sensation below the waist, and bladder and bowel incontinence which has since resolved. She also underwent chemotherapy which ended a year and half ago, and radiation therapy to the spine which ended 1 year ago. Her tumor is reportedly stable. Assessment & Plan (05/17/2022 4:06 PM WATER TREATMENT TECHNICIAN): History of spinal astrocytoma. Seen by an orthopedic spine surgeon in 2019 for scoliosis. A pilocytic astrocytoma from C5-6 T6-7 was incidentally found. She has since undergone resection/debulking (09/24/16), which was reportedly complicated by right-sided hemiparesis, loss of sensation below the waist, and bladder and bowel incontinence which has since resolved. She also underwent chemotherapy which ended a year and half ago, and radiation therapy to the spine which ended 1 year ago. Her tumor is reportedly stable. Assessment & Plan (05/16/2022 5:48 AM WATER TREATMENT TECHNICIAN): History of spinal astrocytoma. Seen by an orthopedic spine surgeon in 2019 for scoliosis. A pilocytic astrocytoma from C5-6 T6-7 was incidentally found. She has since undergone resection/debulking (09/24/16), which was reportedly complicated by right-sided hemiparesis, loss of sensation below the waist, and bladder and bowel incontinence which has since resolved. She also underwent chemotherapy which ended a year and half ago, and radiation therapy to the spine which ended 1 year ago. Her tumor is reportedly stable. 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 Past Treatment and Therapy Plans No past plan information found. Lifetime Dose Tracking * Chemical Lifetime Dose Automatic Entry Manual Entr y DLP 3,766 mGycm 3,766 mGycm 0 mGycm Resolved Problems Problem Noted Date Diagnosed Date Resolved Date Chest pain 05/31/2022 06/07/2022 Assessment & Plan (06/06/2022 7:41 PM WATER TREATMENT TECHNICIAN): Unclear of the etiology of her chest pain. Not tender to palpation. EKG and xray reassuring. Will continue to monitor. Assessment & Plan (06/05/2022 10:29 AM WATER TREATMENT TECHNICIAN): Unclear of the etiology of her chest pain. Not tender to palpation. EKG and xray reassuring. Will continue to monitor. Assessment & Plan (06/04/2022 8:27 AM WATER TREATMENT TECHNICIAN): Unclear of the etiology of her chest pain. Not tender to palpation. EKG and xray reassuring. Will continue to monitor. Assessment & Plan (06/03/2022 10:47 AM WATER TREATMENT TECHNICIAN): Unclear of the etiology of her chest pain. Not tender to palpation. EKG and xray reassuring. Will continue to monitor. Assessment & Plan (06/02/2022 10:17 AM WATER TREATMENT TECHNICIAN): Unclear of the etiology of her chest pain. Not tender to palpation. EKG and xray reassuring. Will continue to monitor. Assessment & Plan (06/01/2022 12:56 PM WATER TREATMENT TECHNICIAN): Unclear of the etiology of her chest pain. Not tender to palpation. EKG and xray reassuring. Will continue to monitor. Assessment & Plan (05/31/2022 7:30 PM WATER TREATMENT TECHNICIAN): Unclear of the etiology of her chest pain. Not tender to palpation. 1) ECG and Chest xray today Astrocytoma 05/29/2022 05/30/2022 Urinary incontinence 05/28/2022 023 Assessment & Plan (06/06/2022 7:43 PM WATER TREATMENT TECHNICIAN): Britt had two episodes of urinary incontinence/nocturnal enuresis prior to admission. None since arriving. Spine MRI unchanged from previous. Consider urology consult if incontinence recurs. Assessment & Plan (06/05/2022 10:34 AM WATER TREATMENT TECHNICIAN): Britt had two episodes of urinary incontinence/nocturnal enuresis prior to admission. None since arriving. Spine MRI unchanged from previous. Consider urology consult if incontinence recurs. Assessment & Plan (06/04/2022 8:35 AM WATER TREATMENT TECHNICIAN): Britt had two episodes of urinary incontinence/nocturnal enuresis prior to admission. None since arriving. Spine MRI unchanged from previous. Consider urology consult if incontinence recurs. Assessment & Plan (06/03/2022 10:52 AM WATER TREATMENT TECHNICIAN): Britt had two episodes of urinary incontinence/nocturnal enuresis prior to admission. None since arriving. Spine MRI unchanged from previous. Consider urology consult if incontinence recurs. Assessment & Plan (06/02/2022 10:22 AM WATER TREATMENT TECHNICIAN): Britt had two episodes of urinary incontinence/nocturnal enuresis prior to admission. None since arriving. Spine MRI unchanged from previous. Consider urology consult if incontinence recurs. Assessment & Plan (06/01/2022 9:15 AM WATER TREATMENT TECHNICIAN): Britt had two episodes of urinary incontinence/nocturnal enuresis prior to admission. None since arriving. - consult urology for evaluation if normal MRI - follow up with neurology consult placed from ED Assessment & Plan (05/31/2022 7:29 PM WATER TREATMENT TECHNICIAN): Britt had two episodes of urinary incontinence/nocturnal enuresis prior to admission. None since arriving. - consult urology for evaluation if normal MRI - follow up with neurology consult placed from ED Assessment & Plan (05/30/2022 11:33 PM WATER TREATMENT TECHNICIAN): Britt had two episodes of urinary incontinence/nocturnal enuresis prior to admission. None since arriving. - consult urology for evaluation if normal MRI - follow up with neurology consult placed from ED Assessment & Plan (05/29/2022 2:37 PM WATER TREATMENT TECHNICIAN): Britt had two episodes of urinary incontinence/nocturnal enuresis prior to admission. None since arriving. - consult urology for evaluation if normal MRI - follow up with neurology consult placed from ED Assessment & Plan (05/28/2022 8:06 PM WATER TREATMENT TECHNICIAN): Britt had two episodes of urinary incontinence/nocturnal enuresis prior to admission. None since arriving. - consult urology for evaluation if normal MRI - follow up with neurology consult placed from ED Assessment & Plan (05/28/2022 2:09 AM WATER TREATMENT TECHNICIAN): Britt had two episodes of urinary incontinence/nocturnal enuresis. - consult urology for evaluation - follow up with neurology consult placed from ED Astrocytoma 05/28/2022 05/28/2022 Astrocytoma 05/27/2022 05/28/2022 Chronic thoracic back pain, unspecified back pain laterality 05/16/2022 05/17/2022 Post-op pain 10/28/2021 05/16/2022 Overview (04/02/2022): Last Assessment & Plan: Assessment: Patient has been taking Morphine with little relief of post-op back pain. Mother states that patient is normally seen at [facility] pain clinic. Plan: - Motrin 400 mg q6 - Tylenol 650 mg q6 PRN for mild pain - Morphine 4 mg q4 PRN for moderate/severe pain - Home Flexeril 10 mg q3 PRN and Robaxin 750 mg q8 PRN for muscle - If pain is still no well-controlled, consider reaching out to [facility] Pain clinic - Consider pain consult - PT consult Assessment & Plan (05/16/2022 6:23 AM WATER TREATMENT TECHNICIAN): History of posterior spinal fusion T2-L3 in October of [address] Ross (OS). She developed new onset axial pain midthoracic spine post-operatively, reports it is deep. It does not radiate to the front of the chest. Endorses residual right lower extremity weakness, and some left lower extremity numbness and tingling in no specific dermatomal distribution, which are not new. She has no bladder or bowel issues. Leg lengths are unequal, and on the left she wears a shoe lift. She occasionally uses a wheelchair. Has been seeing pain management here at [facility] as well as neurology and is on numerous medications including baclofen. She is also performing physical therapy 2 times a week. Additionally, following her tumor debulking surgery, that post-operative course was complicated by a left femur fracture from reportedly stretching, and multiple revision procedures thereafter. She has recently established care with orthopedics at [facility] and follows with Dr. Paulson outpatient. She has been working with [facility] pain team outpatient as well.
--- OUTSIDE RECORDS SUMMARY | 2025-04-02 14:24 | XMS_ITS | Patient Health Record ---
Author Organization [facility] Address [address] [place] [address] Phone [phone] Care Team Providers Care Change Person Name Role Phone MARYA COONEY DMD Unavailable Reason For Referral No Information Medications Medication SIG (Take, Route, Frequency, Duration) Notes Start Date End Date Diagnosis ( ICD Code) Status Fluoxetine Unknown Social History Sex Observation Social History Observation Description Sex Observation Female Plan Of Treatment No Information Insurance Providers Payer Name Payer Address Payer Phone Subscriber Number Group Number Insured Name Patient Relationship to Insured Coverage Start Date Coverage End Date [employer] ATTN CLAIMS [address] [place] [address] [id number] Cee Gipson Self - patient is the insured 7 Medical (General) History Medical History History ICD Code obsessive-compulsive personality disorde r
--- OUTSIDE RECORDS SUMMARY | 2025-04-02 14:24 | XMS_ITS | Clinical Summary ---
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 pancreatitis Medications NARCAN 4 mg/actuation spray,non-aerosol Administer 1 spray into affected nostril(s) as needed for opioid reversal or respiratory depression 0 Active diphenhydrAMINE (BENADRYL) 25 mg capsule Take 1 tablet/capsule (25 mg total) by mouth every 6 (six) hours as needed Active heparin 100 unit/mL syringe Infuse 5 mL (500 Units total) into a venous catheter daily as needed Active calcium citrate-vitamin D3 (CITRACAL WITH D) 315 mg-6.25 mcg (250 unit) per tablet Take 1 tablet by mouth daily Active sertraline (ZOLOFT) 100 mg tablet Take 1 tablet (100 mg total) by mouth nightly Active sertraline (ZOLOFT) 50 mg tablet Take 1 tablet (50 mg total) by mouth daily Active lidocaine (LIDODERM) 5 % Place 1 patch on the skin daily Remove & discard patch within 12 hours or as directed by . 30 patch Active Additional Information Patient not taking.Reported on 03/30/2025 diclofenac sodium (VOLTAREN) 1 % gel Apply 2 g topically 4 (four) times a day 100 g Active Additional Information Patient not taking.Reported on 03/30/2025 morphine (MSIR) 15 mg tablet Take 0.5 tablets (7.5 mg total) by mouth every 4 (four) hours as needed for pain (Second line for pain) for up to 20 doses 10 tablet Active Additional Information Patient not taking.Reported on 03/30/2025 acetaminophen 500 mg capsuleIndication s:Pilocytic astrocytoma (HCC),Chronic thoracic back pain, unspecified back pain laterality Take 1 capsule (500 mg total) by mouth every 6 (six) hours 30 tablet 1 Active docusate sodium (COLACE) 100 mg capsuleIndication s:constipation Take 1 capsule (100 mg total) by mouth 2 (two) times a day 60 capsule 1 Active alcohol swabs pads, medicatedIndicati ons:Pilocytic astrocytoma (HCC),Hypoglycemi a Use as directed to check glucose up to 6 times daily 200 each Active blood-glucose meter (OneTouch Verio Flex meter) miscIndications:P ilocytic astrocytoma (HCC),Hypoglycemi a Use as directed for blood glucose monitoring 1 each 1 Active blood glucose diagnostic (glucose blood) stripIndications: Pilocytic astrocytoma (HCC),Hypoglycemi a Use to test blood glucose up to 6 times per day 200 each Active lancets 33 gauge miscIndications:P ilocytic astrocytoma (HCC),Hypoglycemi a Use as directed to check glucose up to 6 times daily 200 each Active lancets 33 gauge misc USE DIRECTED TO CHECK GLUCOSE UP TO 6 TIMES DAILY Active pantoprazole [address] (PROTONIX) 40 mg EC tablet Take 1 tablet (40 mg total) by mouth daily Active amoxicillin (AMOXIL) 875 mg tablet TAKE 2 TABLETS BY MOUTH TWICE DAILY FOR 10 DAYS Active cephalexin (KEFLEX) 500 mg capsule TAKE 1 CAPSULE BY MOUTH TWICE DAILY FOR 7 DAYS Active cyclobenzaprine (FLEXERIL) 10 mg tablet Active EPINEPHrine 0.3 mg/0.3 mL auto-injection syringe ADMINISTER 0.3 ML IN THE MUSCLE 1 TIME NEEDED FOR ANAPHYLAXIS Active famotidine (PEPCID) 20 mg tablet Active magnesium oxide (MAG-OX) 400 mg (241.3 mg elemental magnesium) tablet Active riboflavin (Vitamin B-2) 100 mg tablet Active methocarbamoL (ROBAXIN) 750 mg tablet Take 1-2 tablets (750-1,500 mg total) by mouth 3 (three) times a day as needed for muscle spasms Take 1 to 2 tablets by mouth every 8 hours as needed. 90 tablet 3 Active ondansetron ODT (ZOFRAN-ODT) 4 mg disintegrating tablet Take 1 tablet (4 mg total) by mouth every 8 (eight) hours as needed for nausea or vomiting 30 tablet Active Additional Information Patient not taking.Reported on 03/30/2025 LORazepam (ATIVAN) 1 mg tablet Take 1 tablet (1 mg total) by mouth every 6 (six) hours as needed for anxiety Active cloNIDine (CATAPRES) 0.1 mg tablet Take 1 tablet (0.1 mg total) by mouth 2 (two) times a day as needed (pain) 60 tablet 2 Active pregabalin (LYRICA) 200 mg capsule TAKE 1 CAPSULE(200 MG) BY MOUTH TWICE DAILY 60 capsule 3 Active meloxicam (MOBIC) 7.5 mg tablet TAKE 1 TABLET(7.5 MG) BY MOUTH TWICE DAILY 60 tablet 1 Active baclofen (LIORESAL) 10 mg tablet TAKE 1 TABLET(10 MG) BY MOUTH THREE TIMES DAILY 90 tablet 1 Active spironolactone (ALDACTONE) 50 mg tablet Take 1 tablet (50 mg total) by mouth 2 (two) times a day Active clindamycin (CLEOCIN T) 1 % lotion APPLY TO AFFECTED AREA ON FACE DAILY Active meloxicam (MOBIC) 7.5 mg tablet TAKE 1 TABLET(7.5 MG) BY MOUTH TWICE DAILY 60 tablet 1 025 2024 Discontinued baclofen (LIORESAL) 10 mg tablet TAKE 1 TABLET(10 MG) BY MOUTH THREE TIMES DAILY 90 tablet 1 2024 Discontinued Active Problems Problem Noted Date Diagnosed Date [...] 05/17/2022 Assessment & Plan (05/23/2022 9:11 AM ART SALES CONSULTANT): Please see A & P under chronic back pain. Assessment & Plan (05/22/2022 2:12 PM ART SALES CONSULTANT): Please see A & P under chronic back pain. Assessment & Plan (05/21/2022 11:04 AM ART SALES CONSULTANT): Please see A & P under chronic back pain. Assessment & Plan (05/20/2022 9:53 AM ART SALES CONSULTANT): Please see A & P under chronic back pain. Assessment & Plan (05/19/2022 8:18 AM ART SALES CONSULTANT): Please see A & P under chronic back pain. Chronic back pain 05/16/2022 Assessment & Plan (02/16/2023 10:13 AM CDT): Continue to follow with pain team and recommendations Assessment & Plan (06/10/2022 9:28 AM ART SALES CONSULTANT): Recent admission for worsening of chronic pain. [...] bed Assessment & Plan (06/08/2022 12:37 PM ART SALES CONSULTANT): Recent admission for worsening of chronic pain. [...] bed Assessment & Plan (06/07/2022 12:15 PM ART SALES CONSULTANT): Recent admission for worsening of chronic pain. [...] baclofen 02/07/20 - Plan to go to [facility] with discharge Assessment & Plan (06/06/2022 7:42 PM ART SALES CONSULTANT): Recent admission for worsening of chronic pain. [...] Utilize PT/OT/PM&R - Plan to go to [facility] with discharge Assessment & Plan (06/05/2022 10:33 AM ART SALES CONSULTANT): Recent admission for worsening of chronic pain. [...] Utilize PT/OT/PM&R - Plan to go to [facility] with discharge Assessment & Plan (06/04/2022 8:35 AM ART SALES CONSULTANT): Recent admission for worsening of chronic pain. [...] Utilize PT/OT/PM&R - Plan to go to [facility] with discharge Assessment & Plan (06/03/2022 10:51 AM ART SALES CONSULTANT): Recent admission for worsening of chronic pain. [...] discharge Assessment & Plan (06/02/2022 10:18 AM ART SALES CONSULTANT): Recent admission for worsening of chronic pain. Pain not well controlled since discharge. Now presents with acute on chronic pain. Yesterday, she reported R shoulder pain. Shoulder XR was normal. - Discuss shoulder exercises with PT - Pain consult - recommend continuing on scheduled tylenol, toradol, methocarbamol, morphine PRN Q4h. - Continue home lyrica, baclofen - Utilize PT/OT/PM&R - [facility] Assessment & Plan (06/01/2022 12:56 PM ART SALES CONSULTANT): Recent admission for worsening of chronic pain. [...] [facility] with discharge Assessment & Plan (05/31/2022 7:29 PM ART SALES CONSULTANT): Recent admission for worsening of chronic pain. Pain not well controlled since discharge. Now presents with acute on chronic pain. - Pain consult - recommend continuing on scheduled tylenol, toradol, methocarbamol, morphine PRN Q4h. - Continue home lyrica, baclofen - Utilize PT/OT/PM&R today - Plan to go to [facility] with discharge Assessment & Plan (05/30/2022 11:34 PM ART SALES CONSULTANT): Recent admission for worsening of chronic pain. Pain not well controlled since discharge. Now presents with acute on chronic pain. - Pain consult - recommend continuing on scheduled tylenol, toradol, methocarbamol, morphine PRN Q4h. - Continue home lyrica, baclofen - Utilize PT/OT/PM&R today - Plan to go to [facility] with discharge Assessment & Plan (05/29/2022 2:45 PM ART SALES CONSULTANT): Recent admission for worsening of chronic pain. Pain not well controlled since discharge. Now presents with acute on chronic pain. - Pain consult - recommend continuing on scheduled tylenol, toradol, methocarbamol, morphine PRN Q4h. - Continue home lyrica, baclofen - Utilize PT/OT/PM&R today - Plan to go to [facility] with discharge Assessment & Plan (05/28/2022 8:08 PM ART SALES CONSULTANT): Recent admission for worsening of chronic pain. Pain not well controlled since discharge. Now presents with acute on chronic pain. - Pain consult - IV morphine PRN - PMNR/PT/OT consult with stable MRI Assessment & Plan (05/28/2022 2:12 AM ART SALES CONSULTANT): Recent admission for worsening of chronic pain. Pain not well controlled since discharge - hold home PO morphine. Will start with morphine 2mg IV PRN and escalate as needed - continue topical voltaren gell - methocarbamol PRN - PACT consult - PMNR consult Assessment & Plan (05/23/2022 7:36 PM ART SALES CONSULTANT): Assessment: 16-yo F with history of chronic [...] skip first line tylenol prn if pain -01/27 - Cont home meds: lyrica, zoloft, periactin, pepcid, multivitamin, colace, miralax daily - Home baclofen (^PM dose 05/16; ^afternoon dose 05/20 & maxed out to 20/20/20mg however oversedating, v AM dose 05/22 now at 10mg/20mg/20mg); adjust as needed if remains oversedated back to 10/10/20mg - Hold increasing lyrica to 150mg BID per pain team (will increase if needed outpatient) Assessment & Plan (05/22/2022 2:15 PM ART SALES CONSULTANT): Assessment: 16-yo F with history of chronic [...] options for other rehab/pain rehab facilities ([facility], [facility], [facility]->Left message with physician referral line [...] as needed if remains oversedated back to 10//20mg - Can increase lyrica to 150mg BID later this week/next week once stable on baclofen (will take several weeks to see effect) Assessment & Plan (05/21/2022 11:05 AM ART SALES CONSULTANT): Assessment: 16-year-old with history of chronic back [...] line tylenol prn if pain 5-01/27 - Home baclofen (^PM dose 05/16; ^day dose 05/20 & maxed out) - Cont home meds: lyrica, zoloft, periactin, pepcid, multivitamin, colace, miralax daily - Can increase lyrica to 150mg BID later this week/next week to give baclofen time to have effect (will take several weeks to see effect) Assessment & Plan (05/20/2022 9:58 AM ART SALES CONSULTANT): Assessment: Patient is a 16-year-old with history [...] is interested in transferring care to [facility]. Plan: - Pain consult - Ortho [...] pain Assessment & Plan (05/19/2022 8:20 AM ART SALES CONSULTANT): Assessment: Patient is a 16-year-old with history [...] PT/OT Assessment & Plan (05/18/2022 11:40 AM ART SALES CONSULTANT): Assessment: Patient is a 16-year-old with history [...] PT/OT Assessment & Plan (05/17/2022 4:07 PM ART SALES CONSULTANT): Assessment: Patient is a 16-year-old with history [...] PT/OT Assessment & Plan (05/16/2022 6:22 AM ART SALES CONSULTANT): Assessment: Patient is a 16-year-old with history [...] 05/16/2022 Assessment & Plan (06/09/2022 8:29 AM ART SALES CONSULTANT): - continue home zoloft 50mg qAm and 100mg qPM Assessment & Plan (06/08/2022 12:37 PM ART SALES CONSULTANT): - continue home zoloft 50mg qAm and 100mg qPM Assessment & Plan (06/07/2022 11:24 AM ART SALES CONSULTANT): - continue home zoloft 50mg qAm and 100mg qPM Assessment & Plan (06/06/2022 7:41 PM ART SALES CONSULTANT): - continue home zoloft 50mg qAm and 100mg qPM Assessment & Plan (06/05/2022 10:29 AM ART SALES CONSULTANT): - continue home zoloft 50mg qAm and 100mg qPM Assessment & Plan (06/04/2022 8:27 AM ART SALES CONSULTANT): - continue home zoloft 50mg qAm and 100mg qPM Assessment & Plan (06/03/2022 10:47 AM ART SALES CONSULTANT): - continue home zoloft 50mg qAm and 100mg qPM Assessment & Plan (06/02/2022 10:16 AM ART SALES CONSULTANT): - continue home zoloft 50mg qAm and 100mg qPM Assessment & Plan (06/01/2022 9:15 AM ART SALES CONSULTANT): - continue home zoloft 50mg qAm and 100mg qPM Assessment & Plan (05/31/2022 7:29 PM ART SALES CONSULTANT): - continue home zoloft 50mg qAm and 100mg qPM Assessment & Plan (05/30/2022 11:34 PM ART SALES CONSULTANT): - continue home zoloft 50mg qAm and 100mg qPM Assessment & Plan (05/29/2022 2:45 PM ART SALES CONSULTANT): - continue home zoloft 50mg qAm and 100mg qPM Assessment & Plan (05/28/2022 8:09 PM ART SALES CONSULTANT): - continue home zoloft 50mg qAm and 100mg qPM Assessment & Plan (05/28/2022 2:10 AM ART SALES CONSULTANT): - continue home zoloft 50mg qAm and 100mg qPM Assessment & Plan (05/23/2022 9:13 AM ART SALES CONSULTANT): Assessment: History of OCD and anxiety, previously taking PRN Ativan, now taking Zoloft. Plan: -Continue Sertraline 150mg every day -Psychology consulted Assessment & Plan (05/22/2022 1:59 PM ART SALES CONSULTANT): Assessment: History of OCD and anxiety, previously taking PRN Ativan now taking Zoloft. Plan: -Continue Sertraline 150mg every day -Psychology consulted Assessment & Plan (05/21/2022 11:05 AM ART SALES CONSULTANT): Assessment: History of OCD and anxiety, previously taking PRN Ativan now taking Zoloft. Plan: -Continue Sertraline 150mg every day -Psychology consulted Assessment & Plan (05/20/2022 9:57 AM ART SALES CONSULTANT): Assessment: History of OCD and anxiety, previously taking PRN Ativan now taking Zoloft. Plan: -Continue Sertraline 150 mg every day -Consider psych consult Assessment & Plan (05/19/2022 8:17 AM ART SALES CONSULTANT): Assessment: History of OCD and anxiety, previously taking PRN Ativan now taking Zoloft. Plan: -Continue Sertraline 150 mg every day -Consider psych consult Assessment & Plan (05/18/2022 11:13 AM ART SALES CONSULTANT): History of OCD and anxiety, previously taking PRN Ativan now taking Zoloft. -Continue Sertraline 150 mg every day -Consider psych consult Assessment & Plan (05/17/2022 4:06 PM ART SALES CONSULTANT): History of OCD and anxiety, previously taking PRN Ativan now taking Zoloft. -Continue Sertraline 150 mg every day -Consider psych consult Assessment & Plan (05/16/2022 6:02 AM ART SALES CONSULTANT): History of OCD and anxiety, previously taking PRN Ativan now taking Zoloft. -Continue Sertraline 150 mg every day -Consider psych consult Hot flashes 04/02/2022 Fracture of femur 04/02/2022 Overview (04/02/2022): surgery 12/13/18 surgery 12/13/18 Gastroesophageal reflux disease 04/02/2022 Assessment & Plan (06/10/2022 9:28 AM ART SALES CONSULTANT): - Continue home famotidine BID Assessment & Plan (06/08/2022 12:24 PM ART SALES CONSULTANT): - Continue home famotidine BID Assessment & Plan (06/07/2022 11:26 AM ART SALES CONSULTANT): - Continue home famotidine BID Assessment & Plan (06/06/2022 7:42 PM ART SALES CONSULTANT): Continue home famotidine BID Assessment & Plan (06/05/2022 10:34 AM ART SALES CONSULTANT): Continue home famotidine BID Assessment & Plan (06/04/2022 8:35 AM ART SALES CONSULTANT): Continue home famotidine BID Assessment & Plan (06/03/2022 10:51 AM ART SALES CONSULTANT): Continue home famotidine BID Assessment & Plan (06/02/2022 10:18 AM ART SALES CONSULTANT): Continue home famotidine BID Assessment & Plan (06/01/2022 9:15 AM ART SALES CONSULTANT): Continue home famotidine BID Assessment & Plan (05/31/2022 7:29 PM ART SALES CONSULTANT): Continue home famotidine BID Assessment & Plan (05/30/2022 11:34 PM ART SALES CONSULTANT): Continue home famotidine BID Assessment & Plan (05/29/2022 2:39 PM ART SALES CONSULTANT): Continue home famotidine BID Assessment & Plan (05/28/2022 8:07 PM ART SALES CONSULTANT): Continue home famotidine BID Assessment & Plan (05/28/2022 2:00 AM ART SALES CONSULTANT): Continue home famotidine BID Nausea and vomiting [...] Helder protocol), chronic pain (followed by the [facility] pain clinic), headaches and left femoral [...] chemotherapy (Trametinib), Chronic pain (followed by the [facility] pain clinic), headaches (recently seen by [...] Osteomyelitis. Patient was first prescribed osteomyelitis by [facility] healthcare system in May with goal [...] worked with PT at home and at [facility]. She has been recently cared for at [facility], She has had rehab at [facility] numerous rounds most recently 02/09, follows with Barbara at [facility] resources include diagnosis of OCD, anxiety had been using prn ativan, --05/11/2020 Telepsychiatry seen, continue Sertraline (zoloft) 150 mg qd, f/u post radiation-->needs follow up [facility] --05/2020 Neuropsych testing as baseline done at [facility], repeat in 3 mo at [facility]. - find out if high-functioning autism is validated on testing. following up with Dr. Pandya several times last 05/09. She has seen Dr. Steen with admissions to [facility] She currently has home counselor on Zoloft [facility] Opioid Patient: Contract 04/08 UDS 08/08 Neuropathic pain 02/17/2019 Assessment & Plan (06/10/2022 9:28 AM ART SALES CONSULTANT): - Continue home lyrica - Continue home baclofen 10mg at 9am, 20mg at 4pm, and 20 mg at 9pm Assessment & Plan (06/08/2022 12:24 PM ART SALES CONSULTANT): - Continue home lyrica - Continue home baclofen 10mg at 9am, 20mg at 4pm, and 20 mg at 9pm Assessment & Plan (06/07/2022 11:26 AM ART SALES CONSULTANT): - Continue home lyrica - Continue home baclofen 10mg at 9am, 20mg at 4pm, and 20 mg at 9pm Assessment & Plan (06/06/2022 7:42 PM ART SALES CONSULTANT): - Continue home lyrica - Continue home baclofen 10mg at 9am, 20mg at 4pm, and 20 mg at 9pm Assessment & Plan (06/05/2022 10:34 AM ART SALES CONSULTANT): - Continue home lyrica - Continue home baclofen 10mg at 9am, 20mg at 4pm, and 20 mg at 9pm Assessment & Plan (06/04/2022 8:35 AM ART SALES CONSULTANT): - Continue home lyrica - Continue home baclofen 10mg at 9am, 20mg at 4pm, and 20 mg at 9pm Assessment & Plan (06/03/2022 10:51 AM ART SALES CONSULTANT): - Continue home lyrica - continue home baclofen 10mg at 9am, 20mg at 4pm, and 20 mg at 9pm Assessment & Plan (06/02/2022 10:18 AM ART SALES CONSULTANT): - Continue home lyrica - continue home baclofen 10mg at 9am, 20mg at 4pm, and 20 mg at 9pm Assessment & Plan (06/01/2022 9:15 AM ART SALES CONSULTANT): - Continue home lyrica - continue home baclofen 10mg at 9am, 20mg at 4pm, and 20 mg at 9pm Assessment & Plan (05/31/2022 7:29 PM ART SALES CONSULTANT): - Continue home lyrica - continue home baclofen 10mg at 9am, 20mg at 4pm, and 20 mg at 9pm Assessment & Plan (05/30/2022 11:33 PM ART SALES CONSULTANT): - Continue home lyrica - continue home baclofen 10mg at 9am, 20mg at 4pm, and 20 mg at 9pm Assessment & Plan (05/29/2022 2:39 PM ART SALES CONSULTANT): - Continue home lyrica - continue home baclofen 10mg at 9am, 20mg at 4pm, and 20 mg at 9pm Assessment & Plan (05/28/2022 8:07 PM ART SALES CONSULTANT): - Continue home lyrica - continue home baclofen 10mg at 9am, 20mg at 4pm, and 20 mg at 9pm Assessment & Plan (05/28/2022 2:10 AM ART SALES CONSULTANT): - Continue home lyrica - continue home [...] months Assessment & Plan (06/10/2022 9:28 AM ART SALES CONSULTANT): Diagnosed with cervico-thoracic pilocytic astrocytoma BRAF duplicated, [...] chemotherapies Assessment & Plan (06/08/2022 12:24 PM ART SALES CONSULTANT): Diagnosed with cervico-thoracic pilocytic astrocytoma BRAF duplicated, [...] chemotherapies Assessment & Plan (06/07/2022 11:26 AM ART SALES CONSULTANT): Diagnosed with cervico-thoracic pilocytic astrocytoma BRAF duplicated, [...] chemotherapies Assessment & Plan (06/06/2022 7:42 PM ART SALES CONSULTANT): Diagnosed with cervico-thoracic pilocytic astrocytoma BRAF duplicated, [...] chemotherapies Assessment & Plan (06/05/2022 10:34 AM ART SALES CONSULTANT): Diagnosed with cervico-thoracic pilocytic astrocytoma BRAF duplicated, [...] chemotherapies Assessment & Plan (06/04/2022 8:35 AM ART SALES CONSULTANT): Diagnosed with cervico-thoracic pilocytic astrocytoma BRAF duplicated, [...] chemotherapies Assessment & Plan (06/03/2022 10:51 AM ART SALES CONSULTANT): Diagnosed with cervico-thoracic pilocytic astrocytoma BRAF duplicated, [...] chemotherapies Assessment & Plan (06/02/2022 10:18 AM ART SALES CONSULTANT): Diagnosed with cervico-thoracic pilocytic astrocytoma BRAF duplicated, [...] chemotherapies Assessment & Plan (06/01/2022 9:15 AM ART SALES CONSULTANT): Diagnosed with cervico-thoracic pilocytic astrocytoma BRAF duplicated, [...] chemotherapies Assessment & Plan (05/31/2022 7:29 PM ART SALES CONSULTANT): Diagnosed with cervico-thoracic pilocytic astrocytoma BRAF duplicated, [...] chemotherapies Assessment & Plan (05/30/2022 11:33 PM ART SALES CONSULTANT): Diagnosed with cervico-thoracic pilocytic astrocytoma BRAF duplicated, [...] chemotherapies Assessment & Plan (05/29/2022 2:38 PM ART SALES CONSULTANT): Diagnosed with cervico-thoracic pilocytic astrocytoma BRAF duplicated, [...] stable. Assessment & Plan (05/28/2022 8:07 PM ART SALES CONSULTANT): Diagnosed with cervico-thoracic pilocytic astrocytoma BRAF duplicated, [...] today Assessment & Plan (05/28/2022 2:05 AM ART SALES CONSULTANT): Diagnosed with cervico-thoracic pilocytic astrocytoma BRAF duplicated, [...] neurosurgery Assessment & Plan (05/10/2020 1:46 PM ART SALES CONSULTANT): It would not be unreasonable to consider [...] [place]. Assessment & Plan (05/23/2022 9:10 AM ART SALES CONSULTANT): Please see A&P under chronic pain. Assessment & Plan (05/22/2022 2:12 PM ART SALES CONSULTANT): Please see A&P under chronic pain Assessment & Plan (05/21/2022 11:05 AM ART SALES CONSULTANT): Please see A&P under chronic pain Assessment & Plan (05/20/2022 9:53 AM ART SALES CONSULTANT): Please see A&P under chronic pain Assessment & Plan (05/19/2022 8:09 AM ART SALES CONSULTANT): Please see A&P under chronic pain Assessment & Plan (05/18/2022 11:16 AM ART SALES CONSULTANT): Please see A&P under chronic pain Assessment & Plan (05/17/2022 4:09 PM ART SALES CONSULTANT): Please see A&P under chronic pain Assessment & Plan (05/16/2022 6:24 AM ART SALES CONSULTANT): Please see A&P under chronic pain Pilocytic [...] 09/24/2018 Assessment & Plan (05/23/2022 9:13 AM ART SALES CONSULTANT): Assessment: History of spinal astrocytoma. Seen by [...] in potentially transferring oncology care to [facility]. Plan: -Neuro Oncology consulted Assessment & Plan (05/22/2022 1:59 PM ART SALES CONSULTANT): Assessment: History of spinal astrocytoma. Seen by [...] in potentially transferring oncology care to [facility]. Plan: -Neuro Oncology consulted Assessment & Plan (05/21/2022 10:59 AM ART SALES CONSULTANT): Assessment: History of spinal astrocytoma. Seen by [...] in potentially transferring oncology care to [facility]. Plan: -Neuro Oncology consulted Assessment & Plan (05/20/2022 9:57 AM ART SALES CONSULTANT): History of spinal astrocytoma. Seen by an [...] in potentially transferring oncology care to [facility]. Plan: -Oncology consult 05/20 Assessment & Plan (05/19/2022 8:09 AM ART SALES CONSULTANT): History of spinal astrocytoma. Seen by an [...] stable. Assessment & Plan (05/18/2022 11:15 AM ART SALES CONSULTANT): History of spinal astrocytoma. Seen by an [...] stable. Assessment & Plan (05/17/2022 4:06 PM ART SALES CONSULTANT): History of spinal astrocytoma. Seen by an [...] stable. Assessment & Plan (05/16/2022 5:48 AM ART SALES CONSULTANT): History of spinal astrocytoma. Seen by an [...] Acute right ankle pain Breath holding episodes Resolved Problems Problem Noted Date Diagnosed Date Resolved Date Chest pain 05/31/2022 06/07/2022 Assessment & Plan (06/06/2022 7:41 PM ART SALES CONSULTANT): Unclear of the etiology of her chest pain. Not tender to palpation. EKG and xray reassuring. Will continue to monitor. Assessment & Plan (06/05/2022 10:29 AM ART SALES CONSULTANT): Unclear of the etiology of her chest pain. Not tender to palpation. EKG and xray reassuring. Will continue to monitor. Assessment & Plan (06/04/2022 8:27 AM ART SALES CONSULTANT): Unclear of the etiology of her chest pain. Not tender to palpation. EKG and xray reassuring. Will continue to monitor. Assessment & Plan (06/03/2022 10:47 AM ART SALES CONSULTANT): Unclear of the etiology of her chest pain. Not tender to palpation. EKG and xray reassuring. Will continue to monitor. Assessment & Plan (06/02/2022 10:17 AM ART SALES CONSULTANT): Unclear of the etiology of her chest pain. Not tender to palpation. EKG and xray reassuring. Will continue to monitor. Assessment & Plan (06/01/2022 12:56 PM ART SALES CONSULTANT): Unclear of the etiology of her chest pain. Not tender to palpation. EKG and xray reassuring. Will continue to monitor. Assessment & Plan (05/31/2022 7:30 PM ART SALES CONSULTANT): Unclear of the etiology of her chest pain. Not tender to palpation. 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 None since arriving. Spine MRI unchanged from previous. Consider urology consult if incontinence recurs. Assessment & Plan (06/05/2022 10:34 AM ART SALES CONSULTANT): Britt had two episodes of urinary incontinence/nocturnal enuresis prior to admission. None since arriving. Spine MRI unchanged from previous. Consider urology consult if incontinence recurs. Assessment & Plan (06/04/2022 8:35 AM ART SALES CONSULTANT): Britt had two episodes of urinary incontinence/nocturnal enuresis prior to admission. None since arriving. Spine MRI unchanged from previous. Consider urology consult if incontinence recurs. Assessment & Plan (06/03/2022 10:52 AM ART SALES CONSULTANT): Britt had two episodes of urinary incontinence/nocturnal enuresis prior to admission. None since arriving. Spine MRI unchanged from previous. Consider urology consult if incontinence recurs. Assessment & Plan (06/02/2022 10:22 AM ART SALES CONSULTANT): Britt had two episodes of urinary incontinence/nocturnal enuresis prior to admission. None since arriving. Spine MRI unchanged from previous. Consider urology consult if incontinence recurs. Assessment & Plan (06/01/2022 9:15 AM ART SALES CONSULTANT): Britt had two episodes of urinary incontinence/nocturnal enuresis prior to admission. None since arriving. - consult urology for evaluation if normal MRI - follow up with neurology consult placed from ED Assessment & Plan (05/31/2022 7:29 PM ART SALES CONSULTANT): Britt had two episodes of urinary incontinence/nocturnal enuresis prior to admission. None since arriving. - consult urology for evaluation if normal MRI - follow up with neurology consult placed from ED Assessment & Plan (05/30/2022 11:33 PM ART SALES CONSULTANT): Britt had two episodes of urinary incontinence/nocturnal enuresis prior to admission. None since arriving. - consult urology for evaluation if normal MRI - follow up with neurology consult placed from ED Assessment & Plan (05/29/2022 2:37 PM ART SALES CONSULTANT): Britt had two episodes of urinary incontinence/nocturnal enuresis prior to admission. None since arriving. - consult urology for evaluation if normal MRI - follow up with neurology consult placed from ED Assessment & Plan (05/28/2022 8:06 PM ART SALES CONSULTANT): Britt had two episodes of urinary incontinence/nocturnal enuresis prior to admission. None since arriving. - consult urology for evaluation if normal MRI - follow up with neurology consult placed from ED Assessment & Plan (05/28/2022 2:09 AM ART SALES CONSULTANT): Britt had two episodes of urinary incontinence/nocturnal [...] states that patient is normally seen at [facility] pain clinic. Plan: - Motrin 400 mg q6 - Tylenol 650 mg q6 PRN for mild pain - Morphine 4 mg q4 PRN for moderate/severe pain - Home Flexeril 10 mg q3 PRN and Robaxin 750 mg q8 PRN for muscle - If pain is still no well-controlled, consider reaching out to [facility] Pain clinic - Consider pain consult - PT consult Assessment & Plan (05/16/2022 6:23 AM ART SALES CONSULTANT): History of posterior spinal fusion T2-L3 in October of [address] Ross ([facility]). She developed new onset axial pain midthoracic [...] Has been seeing pain management here at [facility] as well as neurology and is on numerous medications including baclofen. She is also performing physical therapy 2 times a week. Additionally, following her tumor debulking surgery, that post-operative course was complicated by a left femur fracture from reportedly stretching, and multiple revision procedures thereafter. She has recently established care with orthopedics at [facility] and follows with Dr. Paulson outpatient. She has been working with [facility] pain team outpatient as well. Encounters Date Type Department Care Team Description 03/30/2025 1:45 PM ART SALES CONSULTANT Office Visit [facility] Medicine Pain Management [facility] [address] [place] [address] [place] [address] Grzegorz Walsh MD Other chronic pain (Primary Dx); Neuropathic pain; Myofascial pain 01/17/2025 10:00 AM CDT Therapy [address] [phone] Wendy Rendon, LANDRY Other chronic pain (Primary Dx); Neuropathic pain; Complex regional pain syndrome type 1 of left lower extremity 01/10/2025 10:00 AM CDT Therapy [address] [phone] Wendy Rendon, LANDRY Other chronic pain (Primary Dx); Neuropathic pain; Complex regional pain syndrome type 1 of left lower extremity 01/06/2025 Plan of Care Documentation [address] [phone] 01/03/2025 11:00 AM CDT Therapy [address] [phone] Wendy Rendon, LANDRY Other chronic pain (Primary Dx); Neuropathic pain; Complex regional pain syndrome type 1 of left lower extremity from Last 3 Months Immunizations Immunization Administration Dates Next Due DTaP 11/27/2009, 7,03/02/2007,04/03,02/11/2006 Hep A, Pediatric 12/15/2007,05/25/2007 Hep B, Adolescent or Pediatric 7,04/03/2006,02/11/2006,11/21 HiB 03/02/2007, 7,04/03/2006,02/11,2005 IPV 11/27/2009, 7,04/03/2006,02/11 Influenza Nasal, Unspecified 03/26/2010,02/13/20 10 Influenza, Quadrivalent, Spl it, Preservative Free, Intramuscular 02/28/2021,02/16/2020,01/05/2019,03/24 Influenza, Trivalent, IM (MDV) 01/31/2011 Influenza, Unspecified 03/02/2007,06/25/2006,09/2006 MMR 11/27/2009,12/08/2006 Meningococcal B, OMV (Bexsero) 06/30/2022,2021 Meningococcal MCV4P (Menactra) 11/26/2021,2017 Pneumococcal Conjugate 7-Valent 03/02/20 07,05/26/2006,04/03/2006,02/11 Pneumococcal Conjugate PCV 13 11/27/2009 Rotavirus, Unspecified 05/26/2006,04/03/2006, Sars-CoV-2, Unspecified 10/09/2020,09/18/2020 Tdap 11/28/2015 Varicella 11/27/2009,12/08/2006 Surgical History Surgery Date Site/Laterality Comments TUMOR EXCISION FEMUR CASTRO NAIL INSERTION KNEE SURGERY 2018 2019 POSTERIOR SPINAL FUSION 10/22/2021 T2 TO L3, OSH ANAL EXAMINATION UNDER ANESTHESIA 09/21/19, 06/20/19, 06/13/19 MRI HARDWARE REMOVAL 11/24/19, 08/02/19 tibia Medical History Medical History Date Comments Astrocytoma (HCC) Chronic pain disorder Back pain Extremity pain OCD (obsessive compulsive disorder) Obsessive compulsive disorder Autism Osteomyelitis Scoliosis Post-op pain 10/28/2021 Last Assessment & Plan: Assessment: Patient has been taking Morphine with little relief of post-op back pain. Mother states that patient is normally seen at [facility] pain clinic. Plan: - Motrin 400 mg q6 - Tylenol 650 mg q6 PRN for mild pain - Morphine 4 mg q4 PRN for moderate/severe pain - Home Flexeril 10 mg q3 PRN and Roba Nausea and vomiting 04/02/2022 Sleep apnea Family History * Patient is adopted Medical History Relation Name Comments No Known Problems Father No family history available on biological father's side OCD Maternal Grandfather Diabetes type I Maternal Grandmother ADD / ADHD Maternal Half-Brother 1 OCD Maternal Half-Brother 1 Other Maternal Half-Brother 2 poss ible communication issues No Known Problems Maternal Half-Sister 1 Behavior problems Maternal Half-Sister 2 Autism spectrum disorder Maternal Half-Sister 3 No Known Problems Mother Anesthesia problems Neg Hx Relation Name Status Comments Father Alive Maternal Grandfather Maternal Grandmother Maternal Half-Brother 1 Maternal Half-Brother 2 Maternal Half-Sister 1 Maternal Half-Sister 2 Maternal Half-Sister 3 Mother Alive Social History Tobacco Use Types Packs/Day Years Used Date Smoking Tobacco: Never Passive Smoke Exposure: Never Smokeless Tobacco: Never Tobacco Cessation:Counseling Given: Not Answered AUDIT-C Answer Date Recorded Q1: How often [...] on file Legal Sex Female 7:23 PM ART SALES CONSULTANT Gender Identity Not on file Sexual Orientation Not on file History Length Weight Head Circum Date/Time Gestation Age D/C Weight APGARs Delivery Method Feeding Method 2005 Labor Duration Days In Hospital Hospital Name Hospital Location Comments Adopted, no development erickson ys Growth Chart Information Age Height Weight Khansh-[id number] th Percentile BMI Percentile Head Circum Head Circum Percentile Date 18 years 154.9 cm (5' 0.98) 54.4 kg (120 lb) 63.55%* 2024 18 years 154.9 cm (5' 1) 54.4 kg (120 lb) 65.68%* 2023 17 years 154.9 cm (5' 1) 53.6 kg (118 lb 1.6 oz) 64.31%* 2023 17 years 154.5 cm (5' 0.83) 55 kg (121 lb 4.1 oz) 71.67%* 2022 17 years 54.5 kg (120 lb 2.4 oz) 2022 17 years 154 cm (5' 0.63) 54.3 kg (119 lb 11.4 oz) 70.57%* 2022 17 years 151.5 cm (4' 11.65) 55.6 kg (122 lb 9.6 oz) 79.95%* 2022 17 years 155 cm (5' 1.02) 57.3 kg (126 lb 5.2 oz) 77.91%* 2022 17 years 57.2 kg (126 lb 1.7 oz) 2022 16 years 149.9 cm (4' 11) 56.7 kg (125 lb) 85.36%* 2022 16 years 59 kg (130 lb) 2022 16 years 151.5 cm (4' 11.65) 59.4 kg (130 lb 15.3 oz) 87.78%* 2022 16 years 59.8 kg (131 lb 13.4 oz) 2022 16 years 57.7 kg (127 lb 3.3 oz) 2022 16 years 57.7 kg (127 lb 3.3 oz) 2022 16 years 151 cm (4' 11.45) 56.6 kg (124 lb 12.5 oz) 84.54%* 2022 16 years 60.6 kg (133 lb 9.6 oz) 2022 16 years 152 cm (4' 11.84) 56.7 kg (125 lb) 83.34%* 2022 16 years 55.8 kg (123 lb) 2022 16 years 52.2 kg (115 lb) 2021 15 years 150 cm (4' 11.06) 47.2 kg (104 lb 0.9 oz) 61.03%* 2020 15 years 149.9 cm (4' 11) 47.2 kg (104 lb) 63.07%* 2020 14 years 56.4 kg (124 lb 5.4 oz) 2019 14 years 150.4 cm (4' 11.21) 56.4 kg (124 lb 5.4 oz) 89.97%* 58.2 cm 2019 14 years 177.8 cm (5' 10) 2019 13 years 147.3 cm (4' 10) 46.3 kg (102 lb) 75.21%* 2019 13 years 149.9 cm (4' 11) 49 kg (108 lb) 79.89%* 2018 12 years 44.4 kg (97 lb 14.2 oz) 2018 * [facility] (Girls, 2-20 Years) Last Filed Vital Signs Vital Sign Reading Time Taken Comments Blood Pressure 104/58 04/28/2023 4:12 PM ART SALES CONSULTANT Pulse 76 04/28/2023 4:12 PM ART SALES CONSULTANT Temperature 36.8 C (98.3 F) 04/28/2023 4:12 PM ART SALES CONSULTANT Respiratory Rate 20 02/10/2023 11:18 AM CDT Oxygen Saturation 97% 04/28/2023 4:12 PM ART SALES CONSULTANT Inhaled Oxygen Concentration - - Weight 54.4 kg (120 lb) 08/25/2024 1:30 PM CDT Height 154.9 cm (5' 0.98) 08/25/2024 1:30 PM CD T Head Circumference 58.2 cm 03/23/2020 12:41 PM CS T Body Mass Index 22.69 08/25/2024 1:30 PM CDT Body Mass Index Percentile 63.55% 08/25/2024 1:3 0 PM CDT Growth Chart: [facility] (Girls, 2- 20 Years) Plan of Treatment Health Maintenance Due Date Last Done Comments Depression Screening 2005 Hepatitis C Screening 2005 HPV Vaccines (1 - 3-dose series) 2020 Regular Well Visit/Exam 18-64 11/22/2023 Covid-19 Vaccine ( - 2024-2 6 season) 2024 10/09/2020, 10/09/2020, 09/18/2020, Additional history exists DTaP/Tdap/Td Vaccine (6 - Td or Tdap) 11/27/2025 11/28/2015, 11/27/2009, 03/25/2007, Additional history exists Hepatitis B Screening Completed 05/26/2006 , 04/03/2006, 02/11/2006, Additional history exists Pneumococcal vaccine <65 Completed 010, 03/02/2007, 05/26/2006, Additional history exists Varicella Vaccines Completed 11/27/2009, 12/08/2006 Meningococcal Vaccine Completed 11/26/2021, 018 Meningococcal B Vaccine Completed 06/30/2022, 11/26 Influenza Vaccine Completed 03/15/2025, , 02/28/2021, Additional history exists Goals Goal Patient Goal Type Associated Problems Recent Progress Patient-Stated? Author [facility] Mohini Massey, PhD Note: Increase adaptive coping skills CCM [...] lifestyle strategies and compensatory methods as needed Insurance [facility] IDPA [facility] Advance Directives For more information, please contact: [phone] * Full Code (Latest Code Status on File) Date Activated Date Inactivated Comments 05/27/2022 9:38 PM 06/10/2022 4:42 PM * Full Code Date Activated Date Inactivated Comments 05/16/2022 7:18 AM 05/24/2022 5:47 PM Care Teams Senior Recruiter Relationship Specialty Start Date End Date Franklyn Gamble MD PCP - General Pediatrics 04/03/22 Brynn Pugh NP Nurse Practitioner Orthopedic Surgery 05/19/22
--- OUTSIDE RECORDS SUMMARY | 2025-04-02 14:30 | XMS_ITS | Data Portability ---
Author Organization [facility] Karan [facility] Address [address] [address] Care Team Providers Care Disposition Clerk Name Role Phone JASON SIMMONS Primary Care Provider Assessment No assessment recorded. Plan of Treatment Reminders Order Date Submit Date Provider Last Modified By Organization Details Last Modified Time Details Appointments None recorded. Lab lipid panel, serum 2024 025 DENI [facility], [address] [place] [address], [address], 5 11:47:16 CBC w/ auto diff 2024 025 DENI [facility], [address] [place] [address], [address], 5 11:47:17 TSH + free T4, serum 2024 025 DENI [facility], [address] [place] [address], [address], 5 11:47:18 CMP, serum or plasma 2024 025 DENI [facility], [address] [place] [address] [place], [address], 5 11:47:18 rapid strep group A, throat 2023 024 [email or web address] In-Office Order, Internal Use Only DO Not Attach Compendium DO Not Attach Compendium, Do Not Delete/merge, [id number] 12:28:45 rapid strep group A, throat 2022 023 DENI In-Office Order, Internal Use Only DO Not Attach Compendium DO Not Attach Compendium, Do Not Delete/merge, [id number] 3 16:04:30 urinalysis, dipstick 2022 023 [email or web address] In-Office Order, Internal Use Only DO Not Attach Compendium DO Not Attach Compendium, Do Not Delete/merge, [id number] 15:45:58 culture, urine 2022 023 DENI CUTLER, Ivon Lemus, [address], [place], [address], 3 10:37:02 CBC w/ auto diff 2022 023 DENI CUTLER, Ivon Lemus, [address], [place], [address], 3 03:36:39 CMP, serum or plasma 2022 023 DENI CUTLER, Ivon Lemus, [address], [place], [address], 3 03:36:38 TSH + free T4, serum 2022 023 DENI CUTLER, Ivon Lemus, [address], [place], [address], 3 09:39:44 lipid panel, serum 2022 023 Ivon TEIXEIRA, [address], [place], [address], 3 03:36:37 vitamin D, 25-hydroxy, total, serum 2022 023 Ivon TEIXEIRA, [address], [place], [address], 3 09:39:45 Referral None recorded. Procedures None recorded. Surgeries None recorded. Imaging None recorded. Medication Orders amoxicillin 875 mg tablet 2023 024 DENI [id number], [address], [place], [place], [id number], 4 08:51:00 Patient TargetsNo targets recorded. Patient Instructions Encounter Date Encounter Id Patient Instructions Last Modified By Organization Details Last Modified Time 12/04/2022 [id number] headache in children: care instructions [email or web address] Not available 12/04/2022 20:07:04 Learning About H ow to Make Healthy Changes in Your Child's Diet [email or web address] Not available 12/04/2022 15:17:45 Considering More Physical Activity for Your Child rnkomo Not available 12/04/2022 15:17:46 Well Visit, Teen s: Care Instructions [email or web address] Not available 12/04/2022 15:17:46 depression treatment in teens: care instructions [email or web address] Not available 12/04/2022 20:08:33 01/15/2023 [id number] sore throat in teens: care instructions [email or web address] Not available 01/16/2023 00:46:42 01/06/2024 [id number] Well Visit, Teen s: Care Instructions [email or web address] Not available 01/06/2024 10:50:38 03/15/2025 [id number] Plan of care has been discussed with patient including expected therapeutic benefits and potential side effects of prescribed medication and treatments. Patient verbalizes understanding and is in agreement with the plan of care. Patient was instructed to keep all scheduled appointments and contact the clinic for any additional problems. Health Maintenance: - CRC screening (45-75):Due at 45 years. - Osteoporosis screening: Due at 65. - Lipid screening (>45 unless additional risk factors): n/a - HIV : Declined - HepC: Declined -Eye exam: unknown -Dental Exam: 2024 - Immunizations: - Influenza: Due. 03/15/25 - Prevnar 20: Due at 65. - Tdap/Td ([id number]): 2016 - Zoster (>60):Due at 60. - COVID-19: 10/09/20, 09/18/20 -Labs ordered this visit: annual lab work ordered Females: Pap smear: n/a Mammogram: n/a DEXA: n/a [email or web address] Not available 03/19/2025 08:44:42 Reason for Referral None Reported. Results Created Date Observation Date Name Description Value Unit Range Abnormal Flag Note LastModifiedBy Organization Detail LastModifiedTime 12/05/19 23 12/04/2022 LIPID PANEL W/ CHOL/ HDL RATIO cholesterol, total 181 mg/dL 100-16 9 above high normal Not Available [facility] Department [address] [place] [address], [address], 12/05/2022 03:36:37 12/05/19 23 12/04/2022 LIPID PANEL W/ CHOL/ HDL RATIO triglyceride s 105 mg/dL 0-89 above high normal Not Available [facility] [address] [place] [address], [address], 12/05/2022 03:36:37 12/05/19 23 12/04/2022 LIPID PANEL W/ CHOL/ HDL RATIO HDL cholesterol 60 mg/dL 40-999 Not Available [facility] Department [address] [place] [address], [address], 12/05/2022 03:36:37 12/05/19 23 12/04/2022 LIPID PANEL W/ CHOL/ HDL RATIO VLDL cholesterol bon 21 mg/dL 5-40 Not Available [facility] Department [address] [place] [address], [address], 12/05/2022 03:36:37 12/05/19 23 12/04/2022 LIPID PANEL W/ CHOL/ HDL RATIO LDL chol calc ([facility]) 115 mg/dL 0-109 above high normal Not Available [facility] Department [address] [place] [address], [address], 12/05/2022 03:36:37 12/05/19 23 12/04/2022 LIPID PANEL W/ CHOL/ HDL RATIO T. chol/HDL ratio 3.0 mg/dL 0-4.4 Not Available [facility] Department [address] [place], [address], 12/05/2022 03:36:37 12/05/19 23 12/04/2022 COMP. METAB OLIC PANEL (14) glucose 41 mg/dL 70-99 below low normal Clien t Reque sted Flag RESUL TS VERIF IED AND WORTHY D TO DR BILL MEDEL BY Bert dunlap, CPT AT 2142 ON 12/04. Not Available [facility] Department [address] [place] [address], [address], 12/05/2022 03:36:38 12/05/19 23 12/04/2022 COMP. METAB OLIC PANEL (14) BUN 11 mg/dL 5-18 Not Available [facility] Department [address] [place] [address], [address], 12/05/2022 03:36:38 12/05/19 23 12/04/2022 COMP. METAB OLIC PANEL (14) creatinine 0.56 mg/dL 0.76-1 .27 below low normal Not Available [facility] [address] [place], [address], 12/05/2022 03:36:38 12/05/19 23 12/04/2022 COMP. METAB OLIC PANEL (14) BUN/creatini ne ratio 19 10-22 Not Available [facility] Department [address] [place], [address], 12/05/2022 03:36:38 12/05/19 23 12/04/2022 COMP. METAB OLIC PANEL (14) sodium 140 mmol/ L 134-14 4 Not Available [facility] Department [address] [place] [address], [address], 12/05/2022 03:36:38 12/05/19 23 12/04/2022 COMP. METAB OLIC PANEL (14) potassium 4.0 mmol/ L 3.5-5. 2 Not Available [facility] [address] [place], [address], 12/05/2022 03:36:38 12/05/19 23 12/04/2022 COMP. METAB OLIC PANEL (14) chloride 100 mmol/ L 96-106 Not Available [facility] [address] [place], [address], 12/05/2022 03:36:38 12/05/19 23 12/04/2022 COMP. METAB OLIC PANEL (14) carbon dioxide, total 29 mmol/ L 20-29 Not Available [facility] Department [address] [place] [address], [address], 12/05/2022 03:36:38 12/05/19 23 12/04/2022 COMP. METAB OLIC PANEL (14) calcium 9.8 mg/dL 8.9-10 .4 Not Available [facility] [address] [place], [address], 12/05/2022 03:36:38 12/05/19 23 12/04/2022 COMP. METAB OLIC PANEL (14) protein, total 8.1 g/dL 6.0-8. 5 Not Available [facility] [address] [place], [address], 12/05/2022 03:36:38 12/05/19 23 12/04/2022 COMP. METAB OLIC PANEL (14) albumin 5.0 g/dL 4.0-5. 0 Not Available [facility] [address] [place], [address], 12/05/2022 03:36:38 12/05/19 23 12/04/2022 COMP. METAB OLIC PANEL (14) globulin, total 3.1 g/dL 1.5-4. 5 Not Available [facility] [address] [place], [address], 12/05/2022 03:36:38 12/05/19 23 12/04/2022 COMP. METAB OLIC PANEL (14) A/G ratio 1.6 1.2-2. 2 Not Available [facility] Department [address] [place], [address], 12/05/2022 03:36:38 12/05/19 23 12/04/2022 COMP. METAB OLIC PANEL (14) bilirubin, total 0.3 mg/dL 0.0-1. 2 Not Available [facility] [address] [place], [address], 12/05/2022 03:36:38 12/05/19 23 12/04/2022 COMP. METAB OLIC PANEL (14) alkaline phosphatase 161 IU/L 47-113 above high normal Not Available [facility] Department [address] [place] [address], [address], 12/05/2022 03:36:38 12/05/19 23 12/04/2022 COMP. METAB OLIC PANEL (14) AST (SGOT) 19 IU/L 0-40 Not Available [facility] Department [address] [place] [address], [address], 12/05/2022 03:36:38 12/05/19 23 12/04/2022 COMP. METAB OLIC PANEL (14) ALT (SGPT) 10 IU/L 0-24 Not Available [facility] Department [address] [place] [address], [address], 12/05/2022 03:36:38 12/05/19 23 12/04/2022 CBC WITH DIFFE RENTI AL/PL ATELE T WBC 6.4 x10e3 /uL 3.4-10 .8 Not Available [facility] [address] [place] [address], [address], 12/05/2022 03:36:39 12/05/19 23 12/04/2022 CBC WITH DIFFE RENTI AL/PL ATELE T RBC 4.45 x10e6 /uL 3.77-5 .28 Not Available [facility] [address] [place], [address], 12/05/2022 03:36:39 12/05/19 23 12/04/2022 CBC WITH DIFFE RENTI AL/PL ATELE T hemoglobin 11.6 g/dL 11.1-1 5.9 Not Available [facility] [address] [place], [address], 12/05/2022 03:36:39 12/05/19 23 12/04/2022 CBC WITH DIFFE RENTI AL/PL ATELE T hematocrit 38.3 % 34.0-4 6.6 Not Available [facility] [address] [place], [address], 12/05/2022 03:36:39 12/05/19 23 12/04/2022 CBC WITH DIFFE RENTI AL/PL ATELE T MCV 86 fL 79-97 Not Available [facility] [address] [place], [address], 12/05/2022 03:36:39 12/05/19 23 12/04/2022 CBC WITH DIFFE RENTI AL/PL ATELE T MCH 26.1 pg 26.6-3 3.0 below low normal Not Available [facility] [address] [place], [address], 12/05/2022 03:36:39 12/05/19 23 12/04/2022 CBC WITH DIFFE RENTI AL/PL ATELE T MCHC 30.3 g/dL 31.5-3 5.7 below low normal Not Available [facility] [address] [place], [address], 12/05/2022 03:36:39 12/05/19 23 12/04/2022 CBC WITH DIFFE RENTI AL/PL ATELE T RDW 15.2 % 11.5-1 4.5 above high normal Not Available [facility] [address] [place], [address], 12/05/2022 03:36:39 12/05/19 23 12/04/2022 CBC WITH DIFFE RENTI AL/PL ATELE T platelets 340 x10e3 /uL 150-45 0 Not Available [facility] [address] [place], [address], 12/05/2022 03:36:39 12/05/19 23 12/04/2022 CBC WITH DIFFE RENTI AL/PL ATELE T neutrophils 67 % notest b. Not Available [facility] [address] [place], [address], 12/05/2022 03:36:39 12/05/19 23 12/04/2022 CBC WITH DIFFE RENTI AL/PL ATELE T lymphs 25 % notest b. Not Available [facility] [address] [place], [address], 12/05/2022 03:36:39 12/05/19 23 12/04/2022 CBC WITH DIFFE RENTI AL/PL ATELE T monocytes 7 % notest b. Not Available [facility] [address] [place], [address], 12/05/2022 03:36:39 12/05/19 23 12/04/2022 CBC WITH DIFFE RENTI AL/PL ATELE T eos 1 % notest b. Not Available [facility] [address] [place], [address], 12/05/2022 03:36:39 12/05/19 23 12/04/2022 CBC WITH DIFFE RENTI AL/PL ATELE T basos 1 % notest b. Not Available [facility] [address] [place], [address], 12/05/2022 03:36:39 12/05/19 23 12/04/2022 CBC WITH DIFFE RENTI AL/PL ATELE T neutrophils (absolute) 4.3 x10e3 /uL 1.4-7. 0 Not Available [facility] [address] [place], [address], 12/05/2022 03:36:39 12/05/19 23 12/04/2022 CBC WITH DIFFE RENTI AL/PL ATELE T lymphs (absolute) 1.6 x10e3 /uL 0.7-3. 1 Not Available [facility] [address] [place], [address], 12/05/2022 03:36:39 12/05/1912/04/2022 CBC WITH DIFFE RENTI AL/PL ATELE T monocytes(ab solute) 0.4 x10e3 /uL 0.1-0. 9 Not Available [facility] Department [address] [place] [address], [address], 12/05/2022 03:36:39 12/05/1912/04/2022 CBC WITH DIFFE RENTI AL/PL ATELE T eos (absolute) 0.1 x10e3 /uL 0.0-0. 4 Not Available [facility] [address] [place], [address], 12/05/2022 03:36:39 12/05/1912/04/2022 CBC WITH DIFFE RENTI AL/PL ATELE T baso (absolute) 0.0 x10e3 /uL 0.0-0. 3 Not Available [facility] [address] [place], [address], 12/05/2022 03:36:39 12/05/1912/04/2022 CBC WITH DIFFE RENTI AL/PL ATELE T immature granulocytes 0 % notest b. Not Available [facility] [address] [place], [address], 12/05/2022 03:36:39 12/05/1912/04/2022 CBC WITH DIFFE RENTI AL/PL ATELE T immature grans (abs) 0.0 x10e3 /uL 0.0-0. 1 Not Available [facility] [address] [place], [address], 12/05/2022 03:36:39 12/05/19 23 12/04/2022 CBC WITH DIFFE RENTI AL/PL ATELE T NRBC 0 % 0-0 Not Available [facility] [address] [facility], [place], [address], 12/05/2022 03:36:39 12/05/1912/05/2022 TSH+F REE T4 TSH 1.620 uIU/m L 0.450- 4.500 Not Available [facility] ([facility]) [address] [place], [address], 12/05/2022 09:39:44 12/05/19 23 12/05/2022 TSH+F REE T4 T4,free(dire ct) 0.97 NG/dL 0.93-1 .60 Not Available [facility] ([facility]) [address] [place], [address], 12/05/2022 09:39:44 12/05/1912/05/2022 VITAM IN D, 25-HY DROXY vitamin D, 25-hydroxy 38.6 NG/mL 30.0-1 00.0 Vitam in D defic iency has been defin ed by the Insti tute of Medic ine and an Endoc rine Socie ty pract ice guide line as a level of serum 25-OH vitam in D less than 20 ng/mL (1,2) . The Endoc rine Socie ty went on to furth er defin e vitam in D insuf ficie ncy as a level betwe en 21 and 29 ng/mL (2). 1. IOM (Inst itute of Medic ine). 2010. Dieta ry refer ence abelino es for calci um and D. Priscilla butt [place]: The [facility] Press . 2. Holic k MF, Solo argueta [place], Rachelle off-F debbi i GOODSON, et al. Evalu ation , treat ment, and preve ntion of vitam in D defic iency : an Endoc rine Socie ty clini bon pract ice guide line. JCEM. 2010; 96(7) :1911 -30. Not Available [facility] ([facility]) [address], [place], [address], 12/05/2022 09:39:45 01/16/2001/15/2023 rapid strep group A, throa t Strep negati ve Not Available In-Office Order Internal Use Only DO Not Attach Compendium DO Not Attach Compendium, Do Not Delete/merge, 01/15/2023 15:48:20 01/16/2001/15/2023 urina lysis , dipst ick Leukocytes Trace Not Available In-Offi ce Order Internal Use Only DO Not Attach Compendium DO Not Attach Compendium, Do Not Delete/merge, 01/15/2023 15:23:51 01/16/20 23 01/15/2023 urina lysis , dipst ick Nitrite negati ve Not Available In-Office Order Internal Use Only DO Not Attach Compendium DO Not Attach Compendium, Do Not Delete/merge, 01/15/2023 15:23:51 01/16/20 23 01/15/2023 urina lysis , dipst ick Urobilinogen .2 Not Available In-Of fice Order Internal Use Only DO Not Attach Compendium DO Not Attach Compendium, Do Not Delete/merge, 01/15/2023 15:23:51 01/16/20 23 01/15/2023 urina lysis , dipst ick Protein Negati ve Not Available In-Office Order Internal Use Only DO Not Attach Compendium DO Not Attach Compendium, Do Not Delete/merge, 01/15/2023 15:23:51 01/16/20 23 01/15/2023 urina lysis , dipst ick pH 6.0 Not Available In-Office Order Internal Use Only DO Not Attach Compendium DO Not Attach Compendium, Do Not Delete/merge, 01/15/2023 15:23:51 01/16/2001/15/2023 urina lysis , dipst ick Blood Modera te Not Available In-Office Order Internal Use Only DO Not Attach Compendium DO Not Attach Compendium, Do Not Delete/merge, [facility] 01/15/2023 15:23:51 01/16/20 23 01/15/2023 urina lysis , dipst ick Specific Falls 1.010 Not Available In-Off ice Order Internal Use Only DO Not Attach Compendium DO Not Attach Compendium, Do Not Delete/merge, [facility] 01/15/2023 15:23:51 01/16/2001/15/2023 urina lysis , dipst ick Ketone Negati ve Not Available In-Office Order Internal Use Only DO Not Attach Compendium DO Not Attach Compendium, Do Not Delete/merge, [facility] 01/15/2023 15:23:51 01/16/2001/15/2023 urina lysis , dipst ick Bilirubin Negati ve Not Available In-Office Order Internal Use Only DO Not Attach Compendium DO Not Attach Compendium, Do Not Delete/merge, 01/15/2023 15:23:51 01/16/2001/15/2023 urina lysis , dipst ick Glucose Negati ve Not Available In-Office Order Internal Use Only DO Not Attach Compendium DO Not Attach Compendium, Do Not Delete/merge, [id number] 01/15/2023 15:23:51 01/16/2001/15/2023 urina lysis , dipst ick Appearance Clear Not Available In-Offi ce Order Internal Use Only DO Not Attach Compendium DO Not Attach Compendium, Do Not Delete/merge, 01/15/2023 15:23:51 01/16/2001/15/2023 urina lysis , dipst ick Color Pale Yellow Not Available In-Office Order Internal Use Only DO Not Attach Compendium DO Not Attach Compendium, Do Not Delete/merge, [id number] 01/15/2023 15:23:51 01/17/20 23 01/20/2023 URINE CULTU RE,CO MPREH ENSIV E urine culture,comp rehensive Final report abnormal Not Available [facility] ([facility]) [address] [facility], [place], [address], 01/20/2023 10:37:02 01/17/20 23 01/20/2023 URINE CULTU RE,CO MPREH ENSIV E result 1 Commen t abnormal Esche dayron a coli, ident ified by an autom ated bioch emica l syste m. Great er than 100,0 00 colon y formi ng units per mL Cefaz magdalena <=4 ug/mL Cefaz magdalena with an RICHY <=16 predi cts susce ptibi lity to the oral agent s cefac jing, cefdi manolo, cefpo doxim e, cefpr ozil, cefur oxime , cepha lexin , and lorac arbef when used for thera py of uncom plica aurora urina ry tract infec tions due to E. coli, Klebs iella pneum oniae , and Prote us mirab ilis. Not Available [facility] ([facility]) [address] [facility], [place], [address], 01/20/2023 10:37:02 01/17/20 23 01/20/2023 URINE CULTU RE,CO MPREH ENSIV E antimicrobia l susceptibili ty Commen t S = Susce ptibl e; I = Inter media te; R = Resis tant P = Posit jessika; N = Negat jessika MICS are expre ssed in micro grams per mL Antib iotic RSLT# 1 RSLT# 2 RSLT# 3 RSLT# 4 Amoxi cilli n/Cla vulan ic Acid S Ampic illin S Cefep anyi S Ceftr iaxon e S Cefur oxime S Cipro floxa puma R Ertap enem S Genta micin S Imipe nem S Levof loxac in R Merop enem S Nitro furan toin S Piper acill in/Ta zobac walker S Tetra cycli ne S Tobra mycin S Trime thopr im/Pollock lfa S Not Available [facility] ([facility]) [address], [place], [address], 01/20/2023 10:37:02 05/14/19 24 05/14/2023 rapid strep group A, throa t Strep negati ve Not Available In-Office Order Internal Use Only DO Not Attach Compendium DO Not Attach Compendium, Do Not Delete/merge, [id number] 05/14/2023 11:52:26 05/12/19 24 04/23/2023 polys omnog [place] No observ ation record ed. [facility] [address] [place] [address], [id number], 05/13/2023 10:03:21 01/11/20 24 12/22/2023 sleep study , diagn ostic (PROC ) No observ ation record ed. [facility] [address] [place] [address], [address], 01/12/2024 15:40:35 Result Notes None recorded. Problems Name Problem SNOMED Code Status Onset Date Resolution Date Notes Provider Name and Address Organization Details Recorded Time Streptoc occal sore throat 91299484 Completed 03/24/2018 JINNY Hernandez SIShawn 8 09:26:06 Backache 454661891 Completed 03/24/2018 JINNY Hernandez SIShawn 8 09:25:54 Recurren t urinary tract infectio n 251267931 Completed 01/06/2024 seen by urology at [facility] Franklyn Gamble MD Attn: Ruben carr,[address], [place], [address], [facility] 4 14:11:04 Eruption 469496880 Completed 03/24/2018 JINNY Hernandez SIShawn 8 09:26:03 Pain in throat 123636387 Completed 03/24/2018 JINNY Hernandez SIShawn 8 09:25:58 Nocturna l enuresis 4806680 Completed 03/24/2018 [place], [place] [facility] 8 09:26:13 Dysuria 81699969 Completed 03/24/2018 [place] [facility] 8 09:26:10 Acute pharyngi tis 704468884 Completed 03/24/2018 Franklyn Gamble MD Attn: Ruben carr,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, [place], [address], [place] [facility] 4 14:10:51 Not up to date with immuniza tions 360138422 Active 2022 Franklyn Gamble MD Attn: Ruben carr,[address], [place], [address], [place] [facility] 3 00:23:37 Pain in right foot 47834255225 9107 Completed 202201/06/2024 Franklyn Gamble MD Attn: Ruben lilly,[address], [place], [address], [place] [facility] 4 14:10:51 Pain of shoulder region 40602291 Completed 202201/06/2024 Franklyn Gamble MD Attn: Anelamna carr,[address], [place], [address], [place] [facility] 4 14:10:51 Chronic low back pain 315426907 Active 2022 Franklyn Gamble MD Attn: Anelamna carr,[address], [place], [address], [place] [facility] 3 00:23:46 Headache 32161113 Completed 202201/06/2024 Franklyn Gamble MD Attn: Ruben carr,[address], [place], [address], [place] [facility] 4 14:10:51 [facility] emia 302270530 Completed 202201/06/2024 Franklyn Gamble MD Attn: Ruben lilly,[address], [place], [address], [place] [facility] 4 14:10:51 COVID-19 543943351 Completed 202201/06/2024 Franklyn Gamble MD Attn: Ruebn lilly,[address], [place], [address], [place] [facility] 4 14:10:51 Sore throat 783013924 Completed 202201/06/2024 Franklyn Gamble MD Attn: Ruben carr,[address] [facility], [place], [address], [place] [facility] 4 14:10:51 Nocturna l AND diurnal enuresis 399346215 Active 2022 Franklyn Gamble MD Attn: Ruben crar,[address], [place], [address], [facility] 3 00:47:51 Otalgia of right ear 6154648871 Completed 202301/06/2024 Franklyn Gamble MD Attn: Ruben carr,[address], [place], [address], [facility] 4 14:10:51 Acute pharyngi tis 554662043 Completed 202301/06/2024 Franklyn Gamble MD Attn: Ruben carr,[address], [place], [address], [facility] 4 14:10:51 Problem Notes None recorded. Procedures Surgical History Date Name Laterality Status Provider Name and Address Organization Details Recorded Time 9 Unlisted procedure spine completed Destinee Pandya MA [facility] 10/29/2018 14:28:38 fusion of thoracic spine completed Ana Rosa Buckley MA [facility] 03/15/2025 11:24:52 procedure on lower extremity completed Ana Rosa Buckley MA [facility] 03/15/2025 11:25:24 Imaging Results None recorded. Procedure Notes None recorded. Medical Equipment None Reported. Allergies Allergen ID Allergen Name Allergen Category Reaction Reaction Severity Criticality Documentation Date Start Date Code Code System Note Provider Name and Address Organization Details Recorded Time 916674 oxycodone medicatio n facial swelling severe Not available 11/17/2018 7804 RxNorm [facility] 9 16:14:04 687318 tramadol medicatio n abdominal pain Not available Not available 10/11/2020 10274 RxNorm MATILDE Michel, [facility] 1 15:18:43 [id number] dronabino l Not available Not available Not available Not available 12/04/2022 47339 RxNorm MATILDE Michel, [facility] 3 14:47:50 [id number] dronabino l medicatio n other Not available high 02/09/20252020 77654 RxNorm 1 hr post dose exper ience d tearf ulnes s and back pain Not Available [employer] - prod 16:00:30 [id number] acetamino phen / hydrocodo ne medicatio n hives swelling Not available Not available high 02/09/20252018 55665 2 RxNorm Not Available [employer] - prod 16:00:30 [id number] methadone medicatio n anaphylax is Not available high 02/09/20252023 6813 RxNorm Not Available [employer] - prod 16:00:30 [id number] scopolami ne medicatio n other Not available high 02/09/20252020 9601 RxNorm Hallu cinat ions Hallu cinat ions Not Available [employer] - prod 16:00:30 [id number] hydrocodo ne Not available itching rash swelling Not available Not available Not available high 03/15/20252021 5489 RxNorm Not Available [employer] - prod 03:56:33 [id number] butylscop olamine bromide Not available Not available Not available Not available 03/15/20252023 1851 RxNorm Not Available [employer] - prod 03:56:33 Medications Name Sig Start Date Stop Date Status Note LastModified by Organization Details LastModified Time fluoxetine 40 mg capsule Take 1 capsule every day by oral route in the morning for 30 days. 10/11 completed Not Available Not Available Not Available cyclobenzap rine 10 mg tablet TAKE 1/2 TABLET BY MOUTH THREE TIMES DAILY NEEDED FOR MUSCLE SPASMS active Not Available Not Available No t Available amoxicillin 500 mg capsule Take 1 capsule 3 times a day by oral route for 10 days. 03/24 completed Not Available Not Available Not Available methocarbam ol 500 mg tablet TAKE 1 AND 1/2 TABLETS BY MOUTH EVERY 8 HOURS NEEDED FOR MUSCLE SPASMS 03/15 completed Not Available Not Available Not Available BD Alcohol Swabs USE DIRECTED TO CHECK GLUCOSE UP TO 6 TIMES DAILY active Not Available Not Available No t Available doxycycline hyclate 100 mg capsule TAKE 1 TABLET BY MOUTH TWICE DAILY FOR 14 DAYS FOR ACNE 10/11 completed Not Available Not Available Not Available cetirizine 10 mg tablet Take 1 tablet every day by oral route for 30 days. 10/11 completed Not Available Not Available Not Available Sulfatrim 200 mg-40 mg/5 mL oral suspension Take 5 mL twice a day by oral route for 10 days. 07/24 completed Not Available Not Available Not Available Lidocaine Viscous 2 % mucosal solution 06/30 completed Not Available Not Available Not Available sulfamethox azole 400 mg-trimetho prim 80 mg tablet Take 0.5 tablets twice a day by oral route for 10 days. 11/26 completed Not Available Not Available Not Available dronabinol 5 mg capsule TK ONE C PO BID AC 10/11 completed Not Available Not Available Not Available ondansetron HCl 8 mg tablet 10/11 completed Not Available Not Available Not Available methadone 10 mg tablet TAKE 1/2 TABLET BY MOUTH TWICE DAILY 10/11 completed Not Available Not Available Not Available meloxicam 15 mg tablet 11/26 completed Not Available Not Available Not Available sucralfate 1 gram tablet TK 1 T PO QID B MEALS AND ATN 10/11 completed Not Available Not Available Not Available ondansetron HCl 4 mg tablet TAKE 1 TABLET BY MOUTH EVERY 8 HOURS NEEDED FORNAUSEA AND VOMITING CAUSED BY RADIATION TREATMENT 11/26 completed Not Available Not Available Not Available sertraline 100 mg tablet TAKE 1 TABLET BY MOUTH AT BEDTIME TO BE CO-ADMINI STERED WITH 50 MG TABLET FOR A TOTAL OF 150MG DAILY active Not Available Not Available No t Available lidocaine 4 % topical cream active Not Available Not Available Not Available sulfamethox azole 800 mg-trimetho prim 160 mg tablet TAKE 1 TABLET BY MOUTH TWICE DAILY FOR 7 DAYS 01/05 completed Not Available Not Available Not Available omeprazole 40 mg capsule,del ayed release TAKE 1 CAPSULE BY MOUTH DAILY BEFORE BREAKFAST 11/26 completed Not Available Not Available Not Available granisetron HCl 1 mg tablet TAKE 1 TABLET BY MOUTH EVERY 12 HOURS 10/11 completed Not Available Not Available Not Available tramadol 50 mg tablet TK 1 T PO BID 10/11 completed Not Available Not Available Not Available amoxicillin 500 mg tablet TAKE 4 TABLETS FOR 1 DOSE BEFORE APPT 10/11 completed Not Available Not Available Not Available ondansetron 8 mg disintegrat ing tablet DISSOLVE 1 TABLET ON THE TONGUE EVERY 8 HOURS NEEDED 03/15 completed Not Available Not Available Not Available baclofen 20 mg tablet take 1 tablet twice daily 03/15 completed Not Available Not Available Not Available ketorolac 10 mg tablet TAKE 1 TABLET BY MOUTH EVERY 6 HOURS NEEDED FOR PAIN. NO IBUPROFEN WHILE TAKING THIS MEDICATIO N. 12/04 completed Not Available Not Available Not Available cefadroxil 500 mg capsule TK ONE C PO BID 10/11 completed Not Available Not Available Not Available cyproheptad ine 4 mg tablet TAKE 1 TABLET BY MOUTH TWICE DAILY 06/30 completed Not Available Not Available Not Available meloxicam 7.5 mg tablet TAKE 1 TABLET BY MOUTH DAILY active Not Available Not Available No t Available amoxicillin 875 mg tablet TAKE 2 TABLETS BY MOUTH TWICE DAILY FOR 10 DAYS 01/05 completed Not Available Not Available Not Available hydromorpho ne 2 mg tablet TAKE 1 TABLET BY MOUTH EVERY 6 HOURS NEEDED FOR PAIN active Not Available Not Available No t Available famotidine 20 mg tablet TAKE 1 TABLET BY MOUTH AT BEDTIME active Not Available Not Available No t Available lorazepam 0.5 mg tablet TAKE 1 TABLET BY MOUTH EVERY 8 HOURS NEEDED FOR ANXIETY active Not Available Not Available No t Available methocarbam ol 750 mg tablet active Not Available Not Available Not Available clindamycin 1 % topical gel PETER TOPICALLY AA BID UTD 10/11 completed Not Available Not Available Not Available baclofen 10 mg tablet TAKE 1 TABLET BY MOUTH TWICE DAILY active Not Available Not Available No t Available hydrocortis one 1 % topical cream PETER EXT AA BID 10/11 completed Not Available Not Available Not Available bisacodyl 10 mg rectal suppository 06/30 completed Not Available Not Available Not Available cephalexin 500 mg capsule TAKE 1 CAPSULE BY MOUTH TWICE DAILY FOR 7 DAYS 05/14 completed Not Available Not Available Not Available pantoprazol e 40 mg tablet,erickson yed release TAKE 1 TABLET BY MOUTH DAILY active Not Available Not Available No t Available Prozac 20 mg capsule Take by oral route. 03/24 completed Not Available Not Available Not Available nystatin 100,000 unit/gram topical cream Apply 1 applicati on twice a day by topical route as needed. 07/24 completed Not Available Not Available Not Available dexamethaso ne 4 mg tablet TAKE 1 TABLET BY MOUTH FOUR TIMES DAILY AFTER MEALS FOR 5 DAYS 06/30 completed Not Available Not Available Not Available hyoscyamine 0.125 mg sublingual tablet DISSOLVE 1 TABLET UNDER THE TONGUE EVERY 4 HOURS NEEDED FOR SPASMS active Not Available Not Available No t Available fluoxetine 10 mg capsule GIVE CEE ONE CAPSULE BY MOUTH ONCE ALONG WITH 40 MG TO EQUAL 50 MG DAILY 10/11 completed Not Available Not Available Not Available mupirocin calcium 2 % topical cream APPLY EXTERNALL Y TO THE AFFECTED AREA THREE TIMES DAILY 07/24 completed Not Available Not Available Not Available docusate sodium 100 mg capsule TAKE 1 CAPSULE BY MOUTH ONCE DAILY NEEDED FOR CONSTIPAT ION active Not Available Not Available No t Available omeprazole 20 mg capsule,del ayed release TK 1 C PO QD 06/30 completed Not Available Not Available Not Available DDAVP 0.2 mg tablet Take 1 tablet every day by oral route at bedtime. 07/24 completed Not Available Not Available Not Available hydrocortis one 2.5 % topical cream Apply 1 applicati on 3 times a day by topical route for 7 days. 07/24 completed Not Available Not Available Not Available lorazepam 1 mg tablet TK 1/2 T PO Q 6 H PRN NV 06/30 completed Not Available Not Available Not Available epinephrine 0.3 mg/0.3 mL injection, auto-inject or ADMINISTE R 0.3 ML IN THE MUSCLE 1 TIME NEEDED FOR ANAPHYLAX IS active Not Available Not Available No t Available polyethylen e glycol 3350 17 gram/dose oral powder active Not Available Not Available Not Available scopolamine 1 mg over 3 days transdermal patch COVER 1/2 OF PATCH WITH A BANDAID THEN APPLY 10/11 completed Not Available Not Available Not Available methylpredn isolone 4 mg tablets in a dose pack TAKE BY MOUTH DIRECTED FOLLOW PACKAGE INSERT DOSING FOR 6 DAY SUPPLY 01/05 completed Not Available Not Available Not Available morphine 15 mg immediate release tablet TAKE 1/2 TABLET BY MOUTH EVERY 4 HOURS NEEDED active Not Available Not Available No t Available methadone 5 mg tablet .5 tab twice daily 01/05 completed Not Available Not Available Not Available ondansetron 4 mg disintegrat ing tablet DIS ONE T PO Q 8 H PRN NV active Not Available Not Available No t Available sertraline 50 mg tablet TAKE 1 TABLET BY MOUTH ONCE DAILY IN COMBINATI ON WITH 100 MG TABLET AT BEDTIME FOR TOTAL DOSE OF 150 MG active Not Available Not Available No t Available doxycycline hyclate 100 mg tablet TK 1 T PO TID FOR 14 DAYS 10/11 completed Not Available Not Available Not Available spironolact one 50 mg tablet TAKE 1 TABLET BY MOUTH TWICE DAILY active Not Available Not Available No t Available diazepam 5 mg tablet TAKE 1 TABLET BY MOUTH THREE TIMES DAILY NEEDED FOR AGITATION 01/05 completed Not Available Not Available Not Available amoxicillin 875 mg-potassiu m clavulanate 125 mg tablet TAKE 1 TABLET BY MOUTH EVERY 12 HOURS FOR 10 DAYS 05/14 completed Not Available Not Available Not Available clindamycin 1 % lotion APPLY TO AFFECTED AREA ON FACE DAILY active Not Available Not Available No t Available cyclobenzap rine 5 mg tablet TAKE 1 TABLET BY MOUTH EVERY 8 HOURS NEEDED FOR MUSCLE SPASMS. CAN TAKE 1/2 TABLET IF CAUSING SLEEPINES S DURING SCHOOL HOURS 06/30 completed Not Available Not Available Not Available nitrofurant oin monohydrate /macrocryst als 100 mg capsule TAKE 1 CAPSULE BY MOUTH TWICE DAILY WITH THE MORNING AND EVENING MEAL FOR 7 DAYS 10/11 completed Not Available Not Available Not Available pregabalin 25 mg capsule TK ONE C PO TID ALONG WITH A 100 MG C TO MAKE 125 MG TID 10/11 completed Not Available Not Available Not Available pregabalin 50 mg capsule Take 1 capsule twice a day by oral route as directed. 06/30 completed Not Available Not Available Not Available pregabalin 75 mg capsule 06/30 completed Not Available Not Available Not Available pregabalin 100 mg capsule TAKE ONE CAPSULE BY MOUTH EVERY MORNING AND TAKE TWO CAPSULES BY MOUTH EVERY NIGHT AT BEDTIME active Not Available Not Available No t Available pregabalin 150 mg capsule 10/11 completed Not Available Not Available Not Available pregabalin 200 mg capsule active Not Available Not Available Not Available methadone 12/04 completed Not Available Not Available Not Available Epi E-Z Pen Jr active Not Available Not Available Not Available diclofenac 1 % topical gel APPLY 2 GRAMS TOPICALLY TO THE AFFECTED AREA FOUR TIMES DAILY 12/04 completed Not Available Not Available Not Available cholecalcif sharon (vitamin D3) 50 mcg (2,000 unit) capsule TAKE 1 CAPSULE BY MOUTH ONCE DAILY 01/05 completed Not Available Not Available Not Available cholecalcif sharon (vitamin D3) 50 mcg (2,000 unit) tablet 10/11 completed Not Available Not Available Not Available Citracal + Vitamin D Maximum 315 mg-6.25 mcg (250 unit) tablet TK 2 TS PO BID 10/11 completed Not Available Not Available Not Available OneTouch Verio test strips USE TO TEST SIX TIMES A DAY active Not Available Not Available No t Available lancets 33 gauge USE DIRECTED TO CHECK GLUCOSE UP TO 6 TIMES DAILY active Not Available Not Available No t Available Mekinist 0.5 mg tablet 10/11 completed Not Available Not Available Not Available naloxone 4 mg/actuatio n nasal spray CALL 911. SPR CONTENTS OF ONE SPRAYER (0.1ML) INTO ONE NOSTRIL. REPEAT IN 2-3 MIN IF SYMPTOMS OF OPIOID EMERGENCY PERSIST, ALTERNATE NOSTRILS active Not Available Not Available No t Available OneTouch Verio Flex Meter USE DIRECTED FOR BLOOD GLUCOSE MONITORIN G active Not Available Not Available No t Available riboflavin (vitamin B2) 400 mg tablet TK 1 T PO ONCE D 10/11 completed Not Available Not Available Not Available Tylenol 325 mg capsule Take 2 capsules twice a day by oral route as directed. 01/05 completed Not Available Not Available Not Available ID NOW COVID-19 Test Kit TEST DIRECTED 11/26 completed Not Available Not Available Not Available BinaxNOW COVID-19 Ag Self Test kit FOLLOW PACKAGE DIRECTION S 06/30 completed Not Available Not Available Not Available Vitals Date Recorded Body height Body mass index (BMI) [Percentile] Per age and sex Body mass index (BMI) Body weight Heart rate Respiratory rate Body temperature Systolic And Diastolic Provider Name and Address Organization Details Last Updated DateTime 4 151.77 cm 72 % 23.2 kg/m2 75043.9 g 84 /min 20 /min 97.4 [degF] 112/60 mm[Hg] Destinee Pandya MA [facility] 4 11:58:26 Date Recorded Body height Body mass index (BMI) [Percentile] Per age and sex Body mass index (BMI) Body weight Heart rate Respiratory rate Body temperature Systolic And Diastolic Provider Name and Address Organization Details Last Updated DateTime 3 151.77 cm 81 % 24.4 kg/m2 01995.0 5 g 80 /min 16 /min 97.5 [degF] 108/60 mm[Hg] Destinee Pandya MA [facility] 3 14:47:19 Date Recorded Heart rate Respiratory rate Body temperature Systolic And Diastolic Provider Name and Address Organization Details Last Updated DateTime 01/06/2024 84 /min 20 /min 97.4 [degF] 110/62 mm[Hg] Destinee Pandya MA [facility] 4 10:22:50 Date Recorded Heart rate Respiratory rate Body temperature Body weight Body mass index (BMI) Body mass index (BMI) [Percentile] Per age and sex Body height Systolic And Diastolic Provider Name and Address Organization Details Last Updated DateTime 3 84 /min 16 /min 98 [degF] 63246.4 8 g 24.1 kg/m2 79 % 151.13 cm 106/54 mm[Hg] Cee Guerrero MA [facility] 3 15:17:16 Date Recorded Body weight Oxygen saturation Heart rate Respiratory rate Body temperature Systolic And Diastolic Provider Name and Address Organization Details Last Updated DateTime 5 94634.8 1 g 97 % 80 /min 16 /min 97.2 [degF] 104/72 mm[Hg] Ana Rosa Buckley MA [facility] 5 11:32:57 Social History Question Answer Notes LastModified by Organizat ion Details LastModified Time Tobacco Smoking Status Never Smoker Karla Ellis [facility] 06/27/2014 15:36:11 Animal Exposure? Yes 2 Dogs Informat ion not available 03/15/2025 Do You Wear A Helmet When Biking? Yes [email or web address] Information not available 06/27/2014 Are You Blind Or Do You Have Difficulty Seeing? No Information not available 03/15/2025 What Is Your Level Of Caffeine Consumption? Moderate Soda , Rarely Geovanna Information not available 03/15/2025 In The 14 Days Before Symptom Onset, Have You Had Close Contact With A Laboratory-confir med COVID-19 While That Case Was Ill? No Information not available 10/11/2020 In The 14 Days Before Symptom Onset, Have You Had Close Contact With A Person Who Is Under Investigation For COVID-19 While That Person Was Ill? No Information not available 10/11/2020 Have You Been To An Area Known To Be High Risk For COVID-19? No Information not available 10/11/2020 Are You Deaf Or Do You Have Serious Difficulty Hearing? No Information not available 03/15/2025 What Type Of Diet Are You Following? REGULAR [email or web address] Information not available 06/27/2014 What Is The Highest Grade Or Level Of School You Have Completed Or The Highest Degree You Have Received? [id number] Information not available 01/06/2024 Have There Been Any Changes To Your Family Or Social Situation? Yes [place]oved Back From [place] Feb 2018 [email or web address] Information not available 03/23/2018 Are There Any Guns Present In Your Home? No [email or web address] Information not available 03/24/2018 What Is Your Home Situation? Adoptive Parents Mom, Dad, Brothers, Sisters Information not available 10/11/2020 Do You Use Insect Repellent Routinely? Yes Information not available 06/27/2014 Car Seat Type Or Seat Belt? Seat Belt [email or web address] Information not available 06/27/2014 Parent Involvement? Both Parents Involved Information not available 06/27/2014 Riding In Car Front Seat? No Information not available 06/27/2014 What Was The Date Of Your Most Recent Tobacco Screening? 03/15/2025 Information not available 03/15/2025 What Is Your Parents' Marital Status? [email or web address] Information not available 06/27/2014 Do You Have Any Pets? Yes 2 Dog Information not available 05/14/2023 Pool Exposure No [email or web address] Information not available 06/27/2014 What Is Your Relationship Status? Single Information not available 03/15/2025 What Is The Name Of Your School? [employer] [facility] Information not available 01/06/2024 Do You Use Your Seat Belt Or Car Seat Routinely? Yes Information not available 10/11/2020 Are You Sexually Active? No Information not available 03/15/2025 Do You Have Any Siblings? 11 Siblings (adoptive) [email or web address] Information not available 06/27/2014 Do You Have Smoke And Carbon Monoxide Detectors In Your Home? Yes [email or web address] Information not available 06/27/2014 Are You Passively Exposed To Smoke? No [email or web address] Information no t available 06/27/2014 What Types Of Sporting Activities Do You Participate In? None [email or web address] Information not available 03/24/2018 Do You Use Sunscreen Routinely? Yes [email or web address] Information not available 06/27/2014 Has Tobacco Cessation Counseling Been Provided? No Information not available 03/15/2025 Year In School 7 [email or web address] Informati on not available 10/29/2018 Sex: Female Functional Status Question Answer Note LastModified by Organizat ion Details LastModified Time Do you use any illicit or recreational drugs? No Information not available 03/15/2025 Do you or have you ever used any other forms of tobacco or nicotine? No Information not available 10/11/2020 What is your level of alcohol consumption? None Information not available 03/15/2025 Are you currently employed? No Information not available 03/15/2025 Are you able to care for yourself independently? Yes Information not available 03/15/2025 What is your exercise level? Moderate P>T weekly Information not available 03/15/2025 Mental Status Question Answer Note LastModified by Organization D etails LastModified Time Do you feel stressed (tense, restless, nervous, or anxious, or unable to sleep at night)? [id number] Information not available 03/15/2025 Are you or have you been involved with bullying? No [email or web address] Information not available 06/27/2014 Family History Nothing Reported. Medical History Condition Response Coronary Artery Disease N Other N Atrial Fibrillation N High Blood Pressure N Blood Diseases N Depression N COPD N Blood Clots N Developmental or Behavioral Disorders N Premature N Anxiety Disorder Y Muscle, Joint, or Bone Problems Y Vision or Eye Problems N Arthritis N Head Injury/Concussion N Acid Reflux (GERD) Y Cancer Y Stroke N ADHD N Bladder or Kidney Problems N High Cholesterol N Liver Disease N Schizophrenia N Headaches N Ear or Hearing Problems N Thyroid Problems N Kidney or Bladder Problems Y GI Problems N Eating Disorder N Skin Problems Y Anemia N Constipation N Heart Attack (SC) N Diabetes N Bedwetting N Heart Problems/Murmur N Seizures/Epilepsy N Asthma N Allergies Y Hepatitis N Chicken Pox N Heart Failure N Autism Spectrum Disorder (ASD) N Osteoporosis N Gynecological History Statement/Question Response Flow Moderate Date of LMP 03/10/2025 Frequency of Cycle (Q days) 30 Menses Monthly N Duration of Flow (days) 5 Age at Menarche 12 Current Control Method None LMP Definite Obstetrics History GPAL:G 0 P 0 0 0 0 Immunizations Vaccine Type Date Status Note Provider Nam e and Address Organization Details Recorded Time COVID-19, mRNA, LNP-S, PF, 30 mcg/0.3 mL dose 1 completed Destinee Pandya [place], [place] [facility] 10/11/2020 16:15:20 COVID-19, mRNA, LNP-S, PF, 30 mcg/0.3 mL dose 1 completed Destinee Pand[place] [facility] 10/11/2020 16:15:31 Tdap 6 completed Not Available [facility] 05/07/2019 02:40:54 DTaP 0 completed Lyndsay Sharp [place], [place] [facility] 03/30/2014 12:04:51 DTaP 6 completed Lyndsay Sharp [place] [facility] 03/30/2014 12:04:51 DTaP 7 completed Lyndsay Sharp [place] [facility] 03/30/2014 12:04:51 DTaP 6 completed Lyndsay Sharp [place] [facility] 03/30/2014 12:04:51 DTaP 7 completed Lyndsay Sharp [place] [facility] 03/30/2014 12:04:51 Hib, unspecified formulation 6 completed Lyndsay Sharp [place] [facility] 03/30/2014 12:05:25 Hib, unspecified formulation 6 completed Lyndsay Sharp [place] [facility] 03/30/2014 12:05:25 Hib, unspecified formulation 7 completed Lyndsay Sharp [place] [facility] 03/30/2014 12:05:25 Hib, unspecified formulation 6 completed Lyndsay Sharp [place] [facility] 03/30/2014 12:05:25 Hib, unspecified formulation 7 completed Lyndsay Sharp [place] [facility] 03/30/2014 12:05:25 Hep A, ped/adol, 2 dose 8 completed Lyndsay [place] [facility] 03/30/2014 12:05:51 Hep A, ped/adol, 2 dose 8 completed Lyndsay [place] [facility] 03/30/2014 12:05:51 Hep B, adolescent or pediatric 6 completed Lyndsay [place] [facility] 03/30/2014 12:06:25 Hep B, adolescent or pediatric 6 completed Lyndsay [place] [facility] 03/30/2014 12:06:25 Hep B, adolescent or pediatric 6 completed Lyndsay [place] [facility] 03/30/2014 12:06:25 Hep B, adolescent or pediatric 7 completed Lyndsay Sharp [place] [facility] 03/30/2014 12:06:25 influenza nasal, unspecified formulation 0 completed Lyndsay [place] [facility] 03/30/2014 12:06:56 influenza nasal, unspecified formulation 0 completed [place] [facility] 03/30/2014 12:06:56 influenza, unspecified formulation 7 completed Lyndsay Sharp [place] [facility] 03/30/2014 12:07:27 influenza, unspecified formulation 1 completed [place] [facility] 03/30/2014 12:07:27 influenza, unspecified formulation 7 completed Lyndsay [place] [facility] 03/30/2014 12:07:27 influenza, unspecified formulation 7 completed [place] [facility] 03/30/2014 12:07:27 MMR 0 [place] [facility] 03/30/2014 12:07:44 MMR 7 [place] [facility] 03/30/2014 12:07:44 pneumococcal conjugate PCV 7 6 completed Lyndsay Sharp [place] [facility] 03/30/2014 12:08:23 pneumococcal conjugate PCV 7 7 [place] [facility] 03/30/2014 12:08:23 pneumococcal conjugate PCV 7 6 [place] [facility] 03/30/2014 12:08:23 pneumococcal conjugate PCV 7 7 [place] [facility] 03/30/2014 12:08:23 Pneumococcal conjugate PCV 13 0 [place] [facility] 03/30/2014 12:08:35 IPV 6 [place] [facility] 03/30/2014 12:09:01 IPV 0 [place] [facility] 03/30/2014 12:09:01 IPV 6 [place] [facility] 03/30/2014 12:09:01 IPV 7 completed Lyndsay Sharp [place] [facility] 03/30/2014 12:09:01 rotavirus, unspecified formulation 6 completed Lyndsay [place] [facility] 03/30/2014 12:09:29 rotavirus, unspecified formulation 6 completed Lyndsay [place] [facility] 03/30/2014 12:09:29 rotavirus, unspecified formulation 7 completed Lyndsay [place] [facility] 03/30/2014 12:09:29 varicella 0 completed Lyndsay [place] [facility] 03/30/2014 12:09:45 varicella 7 completed Lyndsay [place] [facility] 03/30/2014 12:09:45 Influenza, split virus, quadrivalent, PF 9 completed Not Available [facility] 03/15/2025 11:07:07 Influenza, split virus, quadrivalent, PF 0 completed Not Available [facility] 03/15/2025 11:07:07 Influenza, split virus, quadrivalent, PF 1 completed Not Available [facility] 03/15/2025 11:07:07 Influenza, split virus, quadrivalent, PF 8 completed Not Available [facility] 05/07/2019 02:49:15 meningococcal MCV4P 8 completed Not Available [facility] 05/07/2019 02:47:15 meningococcal MCV4P 2 completed Destinee Pand[place] [facility] 11/26/2021 12:44:06 meningococcal B, OMV 2 completed Destinee Pandya MA null, [place] - [facility] 11/26/2021 12:44:06 meningococcal B, OMV 3 completed Franklyn Gamble MD Attn: Accounting,[address] [place], [address], [place] [facility] 07/01/2022 00:08:30 Influenza, split virus, trivalent, PF 4 completed Destinee Pandya MA null, [facility] 01/06/2024 11:12:29 Influenza, split virus, trivalent, PF 5 completed Ana Rosa Buckley MA null, [place] - [facility] 03/15/2025 12:12:18 Past Encounters Encounter ID Performer Location Encounter Start Date Encounter Closed Date Diagnosis/Indication Diagnosis SNOMED-CT Code Diagnosis ICD10 Code Diagnosis IMO Codes Diagnosis Note [id number] Uraiwan Kelsey Cameron MD [facility] (Peds) [address] [place] [address] 05/23/2014 16:28:26 05/23/2014 18:01:54 Streptococcal sore throat [id number] Start amox. Backache 596012061 Will se nd urine for U/A and culture since urine showed trace blood and pt. has h/o frequent UTIs. Flank tenderness L side. [id number] [facility] [address] [facility] [place] [address] 06/27/2014 15:23:30 06/28/2014 08:12:53 Recurrent urinary tract infection [id number] Eruption [id number] Julio Medel MD [facility] (Peds) [address] [facility] [place] [address] 08/14/2014 11:32:26 08/14/2014 14:51:00 Pain in throat [id number] Pt with ongoing ST and fever despite h/o positive strep and on antibiotic s for 48 hours. Obtain monospot and CBC. Rest, Tylenol prn, humidifier , etc [id number] Julio Medel MD [facility] (Peds) [address] [facility] [place] [address] 11/22/2014 11:31:43 11/22/2014 15:50:08 Well child [id number] discussed routine early childhood education coordinator discussed healthy weight with diet and exercise discussed safety and school performanc e Nocturnal enuresis 0226127 discussed ways to minimize. Dysuria 26316675 likely du e to irritation . UA clean but with h/o utis will check ucx. Discussed using only showers, hygiene, and staying dry. [id number] [facility] [address] [place] [address] 06/08/2015 14:32:55 06/08/2015 18:04:29 Acute pharyngitis 658436016 J02.8 rest, tylenol, humdifier, vitamin c, etc [id number] MD [facility] [address] [place] [address] 11/06/2015 11:18:42 11/06/2015 12:44:54 Impetigo 69878625 L01.00 [id number] MD [facility] [address] [facility] [place] [address] 11/28/2015 15:35:42 11/28/2015 17:59:51 Well child 844457338 Z00.129 discussed routine early childhood education coordinator discussed healthy weight with diet and exercise discussed safety and school performanc e On examina tion - rash present 121662114 R21 possibly due to irritation will do trial of hydrocorti sone. [id number] MD [facility] [address] [facility] [place] [address] 03/19/2016 16:26:57 03/21/2016 15:32:05 Low back pain 664226421 M54.5 likely due to muscles. tylenol, rest, heating pad prn, etc. stretching prior to exercise and basketball [id number] MD [facility] [address] [place] [address] 05/16/2016 11:48:21 05/20/2016 09:49:41 Upper respiratory infection 32017284 J06.9 rest, tylenol prn, humidifier , vitamin c, etc Chronic low back pain 27 4207101 M54.5 discussed stretching exercises, proper fitting shoes with a good sole, etc [id number] MD [facility] [address] [place] [address] 07/24/2016 11:09:09 07/25/2016 16:17:06 Streptococcal sore throat 51815027 J02.0 no sharing food or drink. switch out toothbrush es [id number] MD Sue Crowellhalto (Peds) [address] [place] [address] 03/24/2018 09:24:00 03/29/2018 14:53:09 Well child 869961612 Z00.129 Diet education 88373875 Z71.3 Exercises education, guidance, and counseling 832173794 Z71.82 Idiopathic scoliosis 203 969186 M41.119 mild per x-ray in [place]. Chronic low back pain 27 4215954 M54.5 for 2 years of unclear etiology. Obsessive- compulsive disorder 427447550 F42.9 prozac not helping much. [id number] MD Araceli Crowell (Peds) [address] [place] [address] 06/17/2018 14:15:18 06/17/2018 15:10:11 Urinary incontinence 663990340 R32 of unclear etiology. u/a +/-. She is on her period. Will treat as if a UTI and await urine cx. 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 Astrocytom a of spinal cord 537113754 C72.0 [id number] MD Araceli Crowell (Peds) [address] [place] [address] 01/20/2019 16:08:00 01/21/2019 10:43:48 Viral pharyngitis 4618981 J02.8 [id number] MD [facility] [address] [place] [address] 10/11/2020 15:05:30 10/11/2020 21:15:05 Well child 457620853 Z00.129 Family refused HPV vaccine. Risks of not vaccinatin g discussed at length w/ family. Diet education 69884053 Z71.3 Exercises education, guidance, and counseling 610974814 Z71.82 Astrocytom a of spinal cord 765105643 C72.0 Followed by [facility] and [facility]. Depressive disorder 3548 9007 F32.9 Followed by [facility] Scoliosis of lumbar spine 609464758 M41.86 Followed by [facility] Dysphagia 00195368 R13.1 0 Followed by [facility] [id number] MD [facility] [address] [facility] [place] [address] 11/26/2021 10:59:29 11/27/2021 12:13:46 Well child 103931385 Z00.129 Family refused HPV vaccine. Risks of not vaccinatin g discussed at length w/ family. Diet education 49103834 Z71.3 Exercises education, guidance, and counseling 408585123 Z71.82 Astrocytom a of spinal cord 703000835 C72.0 Followed by [facility] and [facility]. Depressive disorder 3548 9007 F32.9 Followed by [facility] Scoliosis of lumbar spine 499645451 M41.86 Followed by [facility] Dysphagia 63800044 R13.1 0 Followed by [facility] [id number] MD [facility] [address] [facility] [place] [address] 06/30/2022 10:50:34 07/04/2022 09:39:33 Follow-up in outpatient clinic 853495990 Z09 Chronic low back pain 27 7598617 M54.50 Doing well on current pain regimen- Continue pain meds as prescribed by hem/onc and pain clinic- Continue PT/OT Pain of [facility] 84515891 M25.519 Doing well on current pain management regimen- Continue PT/OT Not up to date with immunizations 928321629 Z28.39 Mom still declines HPV Pain in right foot 22110 74281 65668 M79.671 New onset h/o R foot pain with no h/o trauma 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, radiation and surgical debulking- Continue f/u with multidisci plinary team at [facility] and [facility] [id number] MD Araceli Sanders (Peds) [address] [place] [address] 12/04/2022 14:31:12 12/08/2022 13:35:39 Well child visit 260930188 Z00.129 - Discussed safety, school performanc e, reading, healthy weight, diet, risk reduction Astrocytom a of spinal cord 555983613 C72.0 H/o pilocytic astrocytom a s/p chemothera py, radiation and surgical debulking- Continue f/u with multidisci plinary team at [facility] Chronic low back pain 27 7851748 M54.50 Doing well on current pain regimen- Continue pain meds as prescribed by hem/onc and pain clinic [facility]- Continue PT Depressive disorder 3548 9007 F32.9 - Continue sertraline as prescribed by psych at [facility] Normal bod y mass index 69203166 Z68.52 Diet education 92778575 Z71.3 Exercises education, guidance, and counseling 641181918 Z71.82 Not up to date with immunizations 455290196 Z28.39 Mom declines HPV Headache 32953752 R51.9 H/o headaches around same time daily for the past 3-4wks. MRI done 3-4mo ago was reported at normal. Neuro exam was unremarkab le. Ddx: tension headache, cluster headaches. Oncologist already notified by mom and recommende d some labs to be checked.- Continue ibuprofen or tylenol Q6hr PRN- Drink a lot of fluids, avoid skipping meals- Limit screen time <2hrs/day- Sleep hygiene- Regular eye exam- Discussed danger signs like early childhood education coordinator vomiting, night time awakening, neck stiffness, photophobi a, gait changes, blurred vision; to call clinic or report to ER if any of those is signs is noted. [id number] MD Araceli Sanders (Peds) [address] [place] [address] 01/15/2023 14:48:18 01/16/2023 16:21:46 Nocturnal AND diurnal enuresis 908645927 R32 Urine dipstick with trace LE and moderate blood. Pt on her period today. Given no other urinary symptom and neg abd exam, will hold off antibiotic s and send urine cx.- To keep upcoming urology appt and continue f/u with neurology Sore throat 518445048 J0 2.9 Rapid strep neg. Normal throat exam. Reassured. To report if worsening or no improvemen t [id number] MD Araceli Sanders (Peds) [address] [place] [address] 05/14/2023 11:24:02 05/15/2023 11:51:40 Acute pharyngitis 111867300 J02.9 Rapid strep neg. Does has mild pharyngeal erythema. Given no improvemen t in 2 wks, will Rx with amoxicilli n.Advised to report if no improvemen t or if worsening Otalgia of right ear 687 3711358 H92.01 H/o R ear pain x 2 wks and not getting better. TM however clear b/l.Will be starting amoxicilli n to Rx for pharyngiti s and possible AOM.Advise d to report if no improvemen t or if worseningW ill consider ENT referral if persistent after antibiotic course [id number] MD Araceli Sanders (Peds) [address] [place] [address] 01/06/2024 10:00:37 01/08/2024 08:47:18 Adult health examination 218817368 Z00.00 - Discussed safety, school performanc e, reading, healthy weight, diet, risk reduction- Mom declined HPV declined- Wt and Ht not done due limitation s from back pain, Pt in wheelchair Astrocytom a of spinal cord 948044583 C72.0 H/o pilocytic astrocytom a s/p chemothera py, radiation and surgical debulking- Continue f/u with multidisci plinary team at [facility] Chronic low back pain 27 6755580 M54.50 Doing well on current pain regimen- Continue pain meds as prescribed by hem/onc and pain clinic [facility]- Continue PT Depressive disorder 3548 9007 F32.9 Well controlled . PHQ 9 score negative today- Continue sertraline as prescribed by psych at [facility] Diet education 58493347 Z71.3 Exercises education, guidance, and counseling 267500245 Z71.82 [id number] MD [facility] [address] [place] [address] 03/15/2025 11:05:55 03/20/2025 11:05:13 Immunization due 068706667 Z23 1676457 -Patient agreeable to influenza vaccine.-N P discussed potential side effects and benefits of vaccine. Mixed hyperlipidemia 267 351989 E78.2 81699 -No medication therapy-Re check lipid panel-Tregermán kim LFTs-Patie nt educated on the importance of diet, exercise and medication in the management of this condition. General ex amination of patient 118730938 Z00.00 [id number] The patient was counseled regarding the appropriat e use ofalcohol, screening procedures and recommende d schedule for colonoscop y, cholestero l, thyroid and diabetes screening, prevention of dental and periodonta l disease, diet, regular sustained exercise for at least 30 minutes 3-4 times per week, regular use of seat belts.Mika mmend dilated eye exam and glaucoma screening every 2 years or as indicated by ophthalmol ogy Health Concerns Section Related Observation LastModified by Organization Detai ls LastModified Time None Recorded Concern Status LastModified by Organization Details LastModified Time None Recorded Advance Directives Directive None Recorded Payers Insurance Date Sequence Insurance Name Policy Number Policy Morse Covered Member ID Morse Member ID Guarantor Name 03/20/2025 1 [facility] (MEDICAID HMO) [id number] Cee Gipson [id number] Flory Gipson 03/20/2025 1 [place] [employer] Cee Gipson [id number] Flory Gipson Notes Date Note Type Note Provider Name and Address Organization Details Recorded Time 12/04/2022 text/html 17 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 She is f/u at [facility] by hem/onc and pain clinic. Also on PT. F/u by psychiatry at [facility] for depression and doing well on sertraline. Today c/o headaches x 3-4wks. Had MRI which normal about 3-4mo ago around August or September per mom. Mom informed oncologist and was advised to see PCP and have some labs checked. Headaches last less than 1hr sometimes takes tylenol advil. Onset usually same time everyday in the afternoon ~3pm. Happens mostly when she is in the car. Has them ~3-4x/wk. Pt not drinking much water takes about 16 oz/day. No skipping meals, generally eats a light breakfast and more food at lunch, has healthy dinners. Denies any blurring of vision, nausea, vomiting, night time awakening, weakness ,tingling or numbness. Reports good sleep 8-10hrs. ~ 3-4hrs screen time. Loud noise make it worse. Not really bothered by bright lights.Fell a couple times at home after tripping. Franklyn Gamble MD Attn: Accounting,[address] [facility], [place], [address], [facility] 12/04/2022 20:12:30 01/15/2023 text/html ROS as noted in the HPI 17 y/o F with h/o spinal astrocytoma here with mom c/o having wetting accidents during the day and at night for about 2-3 weeks. Wets bed almost daily now. Mom would like her evaluated for UTI. Pt denies any increased frequency, urgency, dysuria, fever, flank pain or vomiting. Has upcoming urology appt. Also f/u closely with neurology, last MRI spine was unchanged per mom. Also c/o sore throat x 1 day. No cough, runny nose or fever. Franklyn Gamble MD Attn: Accounting,[address] [facility], [place], [address], [facility] 01/16/2023 00:50:03 05/14/2023 text/html ROS as noted in the HPI 17 y/o F with h/o spinal astrocytoma here with dad c/o right ear pain and sore throat x 2 weeks. Seen at [facility] ER ~ 2wks ago on 04-28-2023 for abdominal pain, and was checked for strep; negative strep. Today reports not getting better. Denies any fever, cough, runny nose. No known sick contact, she does school at home. Dad notified Pt will be going to [place] to see a resin painter for her underlying problem astrocytoma as she is always in pain nowadays Franklyn Gamble MD Attn: Accounting,[address], [place], [address], [facility] 05/14/2023 14:13:40 01/06/2024 text/html 18 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 She is f/u at [facility] by hem/onc and pain clinic. Also on PT. F/u by psychiatry at [facility] for depression and doing well on sertraline. Pt has been doing well, no concerns. Franklyn Gamble MD Attn: Accounting,[address], [place], [address], [facility] 01/06/2024 14:11:45 03/15/2025 text/html Patient presents to the clinic to establish care. Patient was previously established with Dr. Gamble for primary care.Other providers: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 Chicken pox: Denies history of chicken pox Marital status: single Sexually active: No Occupation: unemployed Highest level of education: high school grad Allergies: see list TD KIRBY- Attn: Accounting,[address], [place], [address], [facility] 03/19/2025 08:45:35 OBGyn Episode No OBEpisode recorded.
[2025-04-02 14:31] VITALS: BP 105/66; PULSE 80; RESP 16; TEMP 36.6; O2SAT 100
--- OUTSIDE RECORDS SUMMARY | 2025-04-02 14:31 | XMS_ITS | Continuity of Care Document ---
Author Organization [facility] (Adult Med) Address [address] [place] [address] Care Team Providers Care Retort Load Expediter Name Role Phone JASON SIMMONS Primary Care Provider Assessment No assessment recorded. Plan of Treatment Reminders Order Date Submit Date Provider Last Modified By Organization Details Last Modified Time Details Appointments None recorded . Lab lipid panel, serum 025 03/15/20 25 [facility], [address] [place] [address], [id number], 5 11:47:16 CBC w/ auto diff 025 03/15/20 25 [facility], [address] [place] [address], [id number], 5 11:47:17 TSH + free T4, serum 025 03/15/20 25 [facility], [address] [place] [address], [address], 5 11:47:18 CMP, serum or plasma 025 03/15/20 25 [facility], [address] [place] [address], [address], 5 11:47:18 Referral None recorded . Procedures None recorded . Surgeries None recorded . Imaging None recorded . Medication Orders None recorded . Patient TargetsNo targets recorded. Patient Instructions Encounter Date Encounter Id Patient Instructions Last Modified By Organization Details Last Modified Time 03/15/2025 [id number] Plan of care has been discussed with [...] Prevnar 20: Due at 65. - Tdap/Td ([id number]): 2016 - Zoster (>60):Due at 60. - COVID-19: 10/09/20, 09/18/20 -Labs ordered this visit: annual lab work ordered Females: Pap smear: n/a Mammogram: n/a DEXA: n/a Not available 03/19/2025 08:44:42 Reason for Referral None Reported. Problems Name Problem SNOMED Code Status Onset Date Resolution Date Notes Provider Name and Address Organization Details Recorded Time Streptoc occal sore throat 11142956 Completed 03/24/2018 JINNY Hernandez [facility] 8 09:26:06 Backache 637768130 Completed 03/24/2018 JINNY [facility] 8 09:25:54 Recurren t urinary tract infectio n 150525005 Completed 01/06/2024 seen by urology at [facility] Franklyn Gamble MD Attn: Ruben carr,[address] [facility], [place], [address] [place] [address] - [place] 4 14:11:04 Eruption 963081457 Completed 03/24/2018 JINNY Hernandez [facility] 8 09:26:03 Pain in throat 841266084 Completed 03/24/2018 JINNY Hernandez [facility] 8 09:25:58 Nocturna l enuresis 3901175 Completed 03/24/2018 JINNY Hernandez [facility] 8 09:26:13 Dysuria 99401228 Completed 03/24/2018 Michael Duncan null, [place] - [facility] 8 09:26:10 Acute pharyngi tis 328318571 Completed 03/24/2018 Franklyn Gamble MD Attn: Ruben carr,[address] [facility], [place], [address], [place] - [facility] 4 14:10:51 Impetigo 37311033 Completed 03/24/2018 [place] [facility] 8 09:26:08 On examinat ion - rash present Completed 03/24/2018 Michael Dnucan [place] [facility] 8 09:26:01 Scoliosi s of lumbar spine 570084779 Active 2017 Destinee Pandya [place], [place] - [facility] 8 09:27:24 Depressi ve disorder 97525643 Active 2018 [place] [facility] 9 09:44:29 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 Perla [place] - [facility] 9 16:35:57 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 202010/11/2020 [place] [facility] 1 15:49:37 Dysphagi a 91048389 Completed 202001/06/2024 Franklyn Gamble MD Attn: Ruben carr,[address] [facility], [place], [address], [place] - [facility] 4 14:10:51 Not up to date with immuniza tions 189675820 Active 2022 Franklyn Gamble MD Attn: Ruben carr,[address] [facility], [place], [address], [place] [facility] 3 00:23:37 Pain in right foot 00852610765 9107 Completed 202201/06/2024 Franklyn Gamble MD Attn: Ruben carr,[address] [facility], [place], [address], [place] [facility] 4 14:10:51 Pain of shoulder region 88773384 Completed 202201/06/2024 Franklyn Gamble MD Attn: Ruben lilly,[address] [facility], [place], [address], [place] [facility] 4 14:10:51 Chronic low back pain 439374228 Active 2022 Franklyn Gamble MD Attn: Anelamna carr,[address] [facility], [place], [address], [place] - [facility] 3 00:23:46 Headache 07825528 Completed 202201/06/2024 Franklyn Gamble MD Attn: Anelamna carr,[address] [facility], [place], [address], [place] [facility] 4 14:10:51 [facility] emia 110815072 Completed 202201/06/2024 Franklyn Gamble MD Attn: Anelamna carr,[address] [facility], [place], [address], [place] [facility] 4 14:10:51 COVID-19 646430898 Completed 202201/06/2024 Frnaklyn Gamble MD Attn: Anelamna carr,[address] [facility], [place], [address], [place] [facility] 4 14:10:51 Sore throat 779541432 Completed 202201/06/2024 Franklyn Gamble MD Attn: Ruben lilly,[address] [facility], [place], [address], [place] [facility] 4 14:10:51 Nocturna l AND diurnal enuresis 886965077 Active 2022 Franklyn Gamble MD Attn: Ruben lilly,[address] [facility], [place], [address], [place] - [facility] 3 00:47:51 Otalgia of right ear 0185181986 Completed 202301/06/2024 Franklyn Gamble MD Attn: Ruben carr,[address], [place], [address], [facility] - [facility] 4 14:10:51 Acute pharyngi tis 731400231 Completed 202301/06/2024 Franklyn Gamble MD Attn: Ruben carr,[address], [place], [address], [facility] - [facility] 4 14:10:51 Problem Notes None recorded. Procedures Surgical History Date Name Laterality Status Provider Name and Address Organization Details Recorded Time 9 Unlisted procedure spine completed Destinee Pandya MA [facility] 10/29/2018 14:28:38 fusion of thoracic spine completed Ana Rosa Buckley MA [facility] 03/15/2025 11:24:52 procedure on lower extremity completed Ana Rosa Buckley MA [facility] SI 03/15/2025 11:25:24 Imaging Results None recorded. Procedure Notes None recorded. Medical Equipment None Reported. Allergies Allergen ID Allergen Name Allergen Category Reaction Reaction Severity Criticality Documentation Date Start Date Code Code System Note Provider Name and Address Organization Details Recorded Time 801861 oxycodone medicatio n facial swelling severe Not available 11/17/2018 7804 RxNorm MATILDE Michel, [facility] 9 16:14:04 188975 tramadol medicatio n abdominal pain Not available Not available 10/11/2020 38705 RxNorm MATILDE Michel, [place] - [facility] 1 15:18:43 026847 dronabino l Not available Not available Not available Not available 12/04/2022 32344 RxNorm MATILDE Michel, [facility] 3 14:47:50 283825 dronabino l medicatio n other Not available [facility] 02/09/20252020 65657 RxNorm 1 hr post dose exper ience d tearf ulnes s and back pain Not Available [employer] - prod 5 16:00:30 782907 acetamino phen / hydrocodo ne medicatio n hives swelling Not available Not available [facility] 02/09/20252018 57419 2 RxNorm Not Available [employer] - prod 5 16:00:30 152878 methadone medicatio n anaphylax is Not available [facility] 02/09/20252023 6813 RxNorm Not Available [employer] - prod 5 16:00:30 391195 scopolami ne medicatio n other Not available [facility] 02/09/20252020 9601 RxNorm Hallu cinat ions Hallu cinat ions Not Available [facility] [employer] - prod 5 16:00:30 401834 hydrocodo ne Not available itching rash swelling Not available Not available Not available [facility] 03/15/20252021 5489 RxNorm Not Available [employer] - prod 5 03:56:33 921826 butylscop olamine bromide Not available Not available Not available Not available 03/15/20252023 1851 RxNorm Not Available [employer] - prod 5 03:56:33 Medications Name Sig Start Date Stop [...] Available Not Available Vitals Date Recorded Body weight Oxygen saturation Heart rate Respiratory rate Body temperature Systolic And Diastolic Provider Name and Address Organization Details Last Updated DateTime 5 06270.8 1 g 97 % 80 /min 16 /min 97.2 [degF] 104/72 mm[Hg] Ana Rosa Buckley [place] - [facility] 5 11:32:57 Social History Question Answer Notes LastModified by Organizat ion Details LastModified Time Tobacco Smoking Status Never Smoker Karla Ellis MA [facility], [place] - [facility] 06/27/2014 15:36:11 Animal Exposure? Yes 2 Dogs Informat ion not available 03/15/2025 Do You Wear A Helmet When Biking? Yes [email or web address] Information not available 06/27/2014 Are You Blind [...] Type Of Diet Are You Following? REGULAR [email or web address] Information not available 06/27/2014 What Is The Highest Grade Or Level Of School You Have Completed Or The Highest Degree You Have Received? [id number] Information not available 01/06/2024 Have There Been Any Changes To Your Family Or Social Situation? Yes [place] Feb 2018 [email or web address] Information not available 03/23/2018 Are There Any Guns Present In Your Home? No [email or web address] Information not available 03/24/2018 What Is Your Home Situation? Adoptive Parents Mom, Dad, Brothers, Sisters Information not available 10/11/2020 Do You Use Insect Repellent Routinely? Yes [email or web address] Information not available 06/27/2014 Car Seat Type Or Seat Belt? Seat Belt [email or web address] Information not available 06/27/2014 Parent Involvement? Both Parents Involved Information not available 06/27/2014 Riding In Car Front Seat? No [email or web address] Information not available 06/27/2014 What Was The Date Of Your Most Recent Tobacco Screening? 03/15/2025 Information not available 03/15/2025 What Is Your Parents' Marital Status? [email or web address] Information not available 06/27/2014 Do You Have Any Pets? Yes 2 Dog Information not available 05/14/2023 Pool Exposure No Information not available 06/27/2014 What Is Your Relationship Status? Single Information not available 03/15/2025 What Is The Name Of Your School? [employer] Home Information not available 01/06/2024 Do You Use Your Seat Belt Or Car Seat Routinely? Yes Information not available 10/11/2020 Are You Sexually Active? No Information not available 03/15/2025 Do You Have Any Siblings? 11 Siblings (adoptive) [email or web address] Information not available 06/27/2014 Do You Have Smoke And Carbon Monoxide Detectors In Your Home? Yes Information not available 06/27/2014 Are You Passively Exposed To Smoke? No [email or web address] Information no t available 06/27/2014 What Types Of Sporting Activities Do You Participate In? None [email or web address] Information not available 03/24/2018 Do You Use Sunscreen Routinely? Yes [email or web address] Information not available 06/27/2014 Has Tobacco Cessation Counseling Been Provided? No Information not available 03/15/2025 Year In School 7 [email or web address] Informati on not available 10/29/2018 Sex: Female [...] anxious, or unable to sleep at night)? [id number] Information not available 03/15/2025 Are you or have you been involved with bullying? No [email or web address] Information not available 06/27/2014 Family History Nothing Reported. Medical History Condition Response Coronary Artery Disease N Other N Atrial Fibrillation N High Blood Pressure N Blood Diseases N Blood Clots N COPD N Depression N Developmental or Behavioral Disorders N Premature N Anxiety Disorder Y Muscle, Joint, or Bone Problems Y Vision or Eye Problems N Arthritis N Head Injury/Concussion N Acid Reflux (GERD) Y Cancer Y Stroke N ADHD N Bladder or Kidney Problems N High Cholesterol N Liver Disease N Headaches N Schizophrenia N Ear or Hearing Problems N Thyroid Problems N Kidney or Bladder Problems Y GI Problems N Eating Disorder N Skin Problems Y Anemia N Constipation N Heart Attack (CA) N Diabetes N Bedwetting N Heart Problems/Murmur [...] 10/11/2020 16:15:31 Tdap 6 completed Not Available [facility] 05/07/2019 02:40:54 DTaP 0 completed Lyndsay [...] Hep B, adolescent or pediatric 7 completed MATILDE [place] [facility] 03/30/2014 12:06:25 influenza nasal, unspecified formulation 0 completed MAT[place] [facility] 03/30/2014 12:06:56 influenza nasal, [...] 12:07:44 pneumococcal conjugate PCV 7 6 completed MATILDE [...] - [facility] 03/30/2014 12:09:01 IPV 0 completed Lyndsay DiazemoryMATILDE [place] [facility] 03/30/2014 12:09:01 IPV 6 completed Lyndsay DiazjosesitoMATILDE marquez [place] [facility] 03/30/2014 12:09:01 IPV 7 completed Lyndsay Diazemory [place] [facility] 03/30/2014 12:09:01 rotavirus, unspecified formulation 6 completed Lyndsay DiazjosesitoMATILDE [place] [facility] 03/30/2014 12:09:29 rotavirus, unspecified formulation 6 completed Lyndsay Diazemory [place] [facility] 03/30/2014 12:09:29 rotavirus, unspecified formulation 7 completed Lyndsay Diazemory [place] [facility] 03/30/2014 12:09:29 varicella 0 completed Lyndsay DiazjosesitoMATILDE [place] [facility] 03/30/2014 12:09:45 varicella 7 completed Lyndsay DiazjosesitoMATILDE [place] [facility] 03/30/2014 12:09:45 Influenza, split virus, quadrivalent, PF 9 completed Not Available [facility] 03/15/2025 11:07:07 Influenza, split virus, quadrivalent, PF 0 completed Not Available [facility] 03/15/2025 11:07:07 Influenza, split virus, quadrivalent, PF 1 completed Not Available [facility] 03/15/2025 11:07:07 Influenza, split virus, quadrivalent, PF 8 completed Not Available [facility] 05/07/2019 02:49:15 meningococcal MCV4P 8 completed Not Available [facility] 05/07/2019 02:47:15 meningococcal MCV4P 2 completed [place] [facility] 11/26/2021 12:44:06 meningococcal B, OMV 2 completed Destinee Pand[place] [facility] 11/26/2021 12:44:06 meningococcal B, OMV 3 completed Franklyn Gamble MD Attn: Accounting,[address], [place], [address], [facility] - [facility] 07/01/2022 00:08:30 Influenza, split virus, trivalent, PF 4 completed Destinee Pandya MA null, [place] - [facility] 01/06/2024 11:12:29 Influenza, split virus, trivalent, PF 5 completed Ana Rosa Buckley MA null, [place] - [facility] 03/15/2025 12:12:18 Past Encounters Encounter ID Performer Location Encounter Start Date Encounter Closed Date Diagnosis/Indication Diagnosis SNOMED-CT Code Diagnosis ICD10 Code Diagnosis IMO Codes Diagnosis Note [id number] He Victor MD [facility] (Adult Med) [address] [place] [address] 03/15/2025 11:05:55 03/20/2025 11:05:13 Immunization due 350568581 Z23 1160880 -Patient agreeable to influenza vaccine.-N P discussed potential side effects and benefits of vaccine. Mixed hyperlipidemia 267 845331 E78.2 08215 -No medication therapy-Re check lipid panel-Ping kim LFTs-Lory nt educated on the importance of diet, exercise and medication in the management of this condition. General ex amination of patient 839601983 Z00.00 750988 The patient was counseled regarding the appropriat [...] by Organization Details LastModified Time None Recorded Payers Encounter Date Sequence Insurance Name Policy Number Policy Morse Covered Member ID Morse Member ID Guarantor Name 03/15/2025 1 [facility] (MEDICAID HMO) [id number] Cee Gipson [id number] Flory Gipson Notes Date Note Type Note Provider Name and Address Organization Details Recorded Time 03/15/2025 text/html Patient presents to the clinic to establish care. Patient was previously established with Dr. Gamble for primary care.Other providers:Pain Management-[facility]. Riley at [facility] at [facility] HarmonimbidaDermatology-Cammie Burgess -Medical Hx/Surgical Hx: depression, pilocytic astrocytoma [...] education: high school grad Allergies: see list JESS KIRBY Attn: [address] [place], [address], [facility] - [facility] 03/19/2025 08:45:35 OBGyn Episode No OBEpisode recorded.
--- NOTE | 2025-04-02 15:27 | ED_ITS ---
HPI - Wound/Laceration General Chief Complaint: Wound/Laceration Stated Complaint: right leg wound Time Seen by Provider: 04/02/25 15:08 Source: patient, family (Mother) and RN notes reviewed Mode of arrival: ambulatory Limitations: no limitations History of Present Illness HPI narrative: 19-year-old female patient with history of spinal cord tumor and CRPS presents today complaining of a wound to the right anterior thigh times 10 days. States it initially originated from her spilling some chili on her leg 10 days ago and developing a subsequent blister that ruptured. Since that time she has been noticing green/yellow drainage from the area which she started cleaning and dressing with Neosporin and a Band-Aid over the last 2-3 days. States the area is very painful and she wanted to come in to make sure she did not in antibiotics. Related Data Home Medications ?Medication ?Instructions ?Recorded ?Confirmed ?Last Taken ?Type sertraline 100 mg tablet (Zoloft) 100 mg PO HS 1 11/01/22 Unknown History famotidine 20 mg tablet 20 mg PO DAILY 01/22/2110/18 Unknown History baclofen 10 mg tablet 10 mg PO DIRECTED 3 11/01/22 Unknown History pregabalin 100 mg capsule 100 mg PO DIRECTED 11/01/22 Unknown History clonidine HCl 0.1 mg tablet mg 04/02/25 Unknown Histo ry meloxicam 7.5 mg tablet mg 04/02/25 Unknown History spironolactone 50 mg tablet mg 04/02/25 Unknown Histo ry Allergies Allergy/AdvReac Type Severity Reaction Status Date / Time hydrocodone Allergy Rash Verified 04/02/25 14:45 oxycodone Allergy Rash Verified 04/02/25 14:45 dronabinol (From Marinol) AdvReac Agitated Verified 04/02/25 14:45 scopolamine AdvReac Hallucinati Verified 04/02/25 14:45 ng tramadol AdvReac Other Verified 04/02/25 14:45 [facility] Past Medical History Medical History (Updated 04/02/25 @ 16:26 by Indiana Baugh, MANAGER OF SCHOOL, INVENTORY CONTROL ASSOCIATE) Spinal cord tumor Complex regional pain syndrome Comments At time of signature, I have reviewed and agree with nursing past medical, surgical, social and family history unless otherwise noted. Please see nursing chart for further information. There is no relevant family history pertinent to the presenting complaint Exam Narrative: GENERAL: Well-appearing, well-nourished, and in no acute distress. HEAD: Normocephalic, atraumatic. EYES: EOMI. No redness or drainage. Conjunctivae normal. ENT: Mucous membranes pink and moist. NECK: Normal AROM. CHEST: No respiratory distress. EXTREMITIES: Normal range of motion. No edema. SKIN: Warm, dry, no rash. Capillary refill normal. Normal skin turgor. 1.5 cm x 1 cm lesion to the right anterior thigh with yellow/green purulent scab on mildly erythematous base. Tender to palpation. No surrounding induration or fluctuance. See procedure note. NEURO: No focal deficits. Alert and oriented x3. Gait steady with walker. PSYCH: Normal affect. No signs of depression or anxiety. Course Course Level of Care: Express Care Visit Vital Signs Vital signs: Vital Signs Temperature 97.8 F 04/02/25 14:31 Pulse Rate 80 04/02/25 14:31 Respiratory Rate 16 04/02/25 14:31 Blood Pressure 105/66 04/02/25 14:31 Pulse Oximetry 100 04/02/25 14:31 Oxygen Delivery Room Air 04/02/25 14:31 Temperature 97.8 F 04/02/25 14:31 Pulse Rate 80 04/02/25 14:31 Respiratory Rate 16 04/02/25 14:31 Blood Pressure 105/66 04/02/25 14:31 Pulse Oximetry 100 04/02/25 14:31 Oxygen Delivery Room Air 04/02/25 14:31 Reviewed Procedures Other Procedure Procedure 1: Other Procedure: Scabbed lesion is cleansed with Betadine. Using serrated forceps, Purulent scab was removed from the lesion to determine whether not there was an underlying abscess as patient stated there was continuous purulent discharge from the area. No abscess was noted. Dressed with Band-Aid. Patient tolerated procedure well. MDM MDM Narrative Medical decision making narrative: 19-year-old female patient with history of spinal cord tumor and CRPS presents today complaining of a wound to the right anterior thigh times 10 days. States it initially originated from her spilling some chili on her leg 10 days ago and developing a subsequent blister that ruptured. Since that time she has been noticing green/yellow drainage from the area which she started cleaning and dressing with Neosporin and a Band-Aid over the last 2-3 days. States the area is very painful and she wanted to come in to make sure she did not in antibiotics. Upon exam,1.5 cm x 1 cm lesion to the right anterior thigh with yellow/green purulent scab on mildly erythematous base. Area is tender to palpation without surrounding fluctuance or induration. Purulent scab was removed from the lesion to determine whether not there was an underlying abscess as patient stated there was continuous purulent discharge from the area. Scabbed area was removed and underlying tissue seem to be healing properly. Dressed with Band-Aid. Will prescribe some mupirocin ointment to be applied after washing with soap and water daily. Mother and patient agree with plan. Vital signs stable. Anticipatory guidance given. Differential Diagnosis Differential Diagnosis: Abscess, cellulitis, burn Critical Care Time Critical Care Time Critical Care Time: No Discharge Plan Discharge Clinical Impression: Burn Patient Disposition: Home Condition: Stable Additional Instructions: The scabbed area does not have an abscess. Wash daily with soap and water. Apply the antibiotic ointment twice daily, then a Band-Aid. Follow-up with your PCP with any additional concerns. Patient Language: Amharic Prescriptions: New mupirocin 2 % ointment 1 applic topical BID 7 Days Qty: 22 0RF No Action famotidine 20 mg tablet 20 mg PO DAILY baclofen 10 mg tablet 10 mg PO DIRECTED pregabalin 100 mg capsule 100 mg PO DIRECTED sertraline [Zoloft] 100 mg Tablet 100 mg PO HS clonidine HCl 0.1 mg tablet meloxicam 7.5 mg tablet spironolactone 50 mg tablet Follow-up/Referrals: Andrzej,Ana Spear, MANAGER OF SCHOOL [Primary Care Provider, Unknown] Time of Disposition: 15:32
== END 2025-04-02 15:35 | disposition home or self-care (01) ==
PROVIDERS: Emergency Provider Nurse Practitioner; PCP Nurse Practitioner Family
DX: T24.211A Burn of second degree of right thigh, initial encounter (principal); X10.1XXA Contact with hot food, initial encounter
CPT/HCPCS: 99213; G0463